=== PATIENT | female | born 1995 | race Caucasian/White ===

== ENCOUNTER 2017-11-22 21:03 | Emergency (ER) | payer MEDICAID, SELFPAY ==
[2017-11-22 21:12] VITALS: BP 104/62; PULSE 83; RESP 16; TEMP 36.9; O2SAT 99; BMI 20.3
[2017-11-22 22:27] VITALS: BP 128/61; PULSE 85; RESP 16; O2SAT 99
--- NOTE | 2017-11-22 22:48 | HMH.EDEYEP ---
ED Disposition Clinical Impression: Hordeolum externum (stye) Qualifiers: Laterality: left Eyelid: lower Qualified Code(s): H00.015 - Hordeolum externum left lower eyelid Disposition: Home, Self-Care Condition on Discharge: Good Instructions: DI for Hordeolum Additional Instructions: warm compresses and see dr tejeda in am Referrals: Provider,Referral, [Primary Care Provider] - - Critical Care Critical Care Time: No Attestation: On 11/22/17, the high probability of a clinically significant, sudden or life threatening deterioration of the following system(s) required my full and direct attention, intervention and personal management. The time I documented below is in addition to time spent performing reported procedures but includes the following listed in this critical care notation. Medical Decision Making - Medical Records Medical records reviewed: Yes: I reviewed the patient's medical records. Vital Signs: 11/22/17 21:12 11/22/17 22:27 Temperature 98.5 F Temperature Source Oral Pulse Rate [Brachial] 83 85 Respiratory Rate 16 16 Blood Pressure [Right Arm] 104/62 128/61 Blood Pressure Mean [Right Arm] 76 83 Blood Pressure Source [Right Arm] Automatic Cuff Automatic Cuff Blood Pressure Position [Right Arm] Sitting Sitting 02 Sat by Pulse Oximetry 99 99 Oxygen Delivery Method Room Air Room Air - Physician Consults Physician Consulted: ileana Reason -: Pt condition - Timmy Inquiry Pt receiving controlled substance: No Eye Problem HPI - General Chief complaint: Eye Problems Stated complaint: LEFT EYE RED&SWOLLEN Time Seen by Provider: 11/22/17 22:48 Mode of Arrival: Ambulatory Source of Information: Patient, Medical Record Limitations: No Limitations Description of Symptoms (Recalled from ER Triage Doc. by RN): PAIN AND SWELLING IN LEFT EYE - History of Present Illness HPI Narrative: pt with reddness and swelling lt lower eye over the last 2 days - no contact lens chief complaint: eye pain, other (swollen lower lid ) Onset (ago): day(s) Onset description: gradual Duration: constant Location: left eye Eye Symptoms: pain Mechanism: none Severity: moderate Associated symptoms: none Treatments Prior to Arrival: none - Related Data Home Medications Medication Instructions Recorded Confirmed No Known Home Medications [No 11/22/17 11/22/17 Known Home Medications] Allergies Allergy/AdvReac Type Severity Reaction Status Date / Time azithromycin [From ZITHROMAX] Allergy Mild Verified 11/22/17 21:28 ciprofloxacin [From CIPRO] Allergy Mild Verified 11/22/17 21:28 Penicillins [PENICILLINS] Allergy Unknown Verified 11/22/17 21:[address] [facility] History I have reviewed the patient's past medical history: Yes - *Social History Smoking Status: Current every day smoker Alcohol Intake: never - Psychiatric History Expresses thoughts of harming self/others: None Suicide Plan Description: No Plan ROS Obtained: Yes All systems reviewed & no additional complaints - Constitutional Constitutional: Denies fever(s) - Eyes Eyes: Denies diplopia, Reports eye pain, Denies photophobia, Denies requires corrective lenses - ENT Ears, Nose, Mouth, and Throat: Reports sinus pain, Denies sore throat - Cardiovascular Cardiovascular: Denies chest pain - Respiratory Respiratory: No cough - Gastrointestinal Gastrointestingal: Denies: abdominal pain - Musculoskeletal Musculoskeletal: Denies joint pain - Integumentary/Breasts Skin/Breast: Denies rash Physical Exam - General General appearance: alert - Head Head exam: atraumatic - Eye Eye exam: Present: PERRL, EOMI - Expanded Eye Exam Eyelids: bilateral: stye - ENT ENT exam: Present: normal exam - Neck Neck exam: Present: normal inspection - Respiratory Respiratory exam: Absent: respiratory distress - Cardiovascular Cardiovascular exam: Present: regular rate - Back Exam Back exam: Present: full
--- NOTE | 2017-11-22 22:51 | ED_ITS ---
ED Disposition Clinical Impression: Hordeolum externum (stye) Qualifiers: Laterality: left Eyelid: lower Qualified Code(s): H00.015 - Hordeolum externum left lower eyelid Disposition: Home, Self-Care Condition on Discharge: Good Instructions: DI for Hordeolum Additional Instructions: warm compresses and see dr tejeda in am Referrals: Provider,Referral, [Primary Care Provider] - - Critical Care Critical Care Time: No Attestation: On 11/22/17, the high probability of a clinically significant, sudden or life threatening deterioration of the following system(s) required my full and direct attention, intervention and personal management. The time I documented below is in addition to time spent performing reported procedures but includes the following listed in this critical care notation. Medical Decision Making - Medical Records Medical records reviewed: Yes: I reviewed the patient's medical records. Vital Signs: 11/22/17 21:12 11/22/17 22:27 Temperature 98.5 F Temperature Source Oral Pulse Rate [Brachial] 83 85 Respiratory Rate 16 16 Blood Pressure [Right Arm] 104/62 128/61 Blood Pressure Mean [Right Arm] 76 83 Blood Pressure Source [Right Arm] Automatic Cuff Automatic Cuff Blood Pressure Position [Right Arm] Sitting Sitting 02 Sat by Pulse Oximetry 99 99 Oxygen Delivery Method Room Air Room Air - Physician Consults Physician Consulted: ileana Reason -: Pt condition - Timmy Inquiry Pt receiving controlled substance: No Eye Problem HPI - General Chief complaint: Eye Problems Stated complaint: LEFT EYE RED&SWOLLEN Time Seen by Provider: 11/22/17 22:48 Mode of Arrival: Ambulatory Source of Information: Patient, Medical Record Limitations: No Limitations Description of Symptoms (Recalled from ER Triage Doc. by RN): PAIN AND SWELLING IN LEFT EYE - History of Present Illness HPI Narrative: pt with reddness and swelling lt lower eye over the last 2 days - no contact lens chief complaint: eye pain, other (swollen lower lid ) Onset (ago): day(s) Onset description: gradual Duration: constant Location: left eye Eye Symptoms: pain Mechanism: none Severity: moderate Associated symptoms: none Treatments Prior to Arrival: none - Related Data Home Medications Medication Instructions Recorded Confirmed No Known Home Medications [No 11/22/17 11/22/17 Known Home Medications] Allergies Allergy/AdvReac Type Severity Reaction Status Date / Time azithromycin [From ZITHROMAX] Allergy Mild Verified 11/22/17 21:28 ciprofloxacin [From CIPRO] Allergy Mild Verified 11/22/17 21:28 Penicillins [PENICILLINS] Allergy Unknown Verified 11/22/17 21:28 [facility] History I have reviewed the patient's past medical history: Yes - *Social History Smoking Status: Current every day smoker Alcohol Intake: never - Psychiatric History Expresses thoughts of harming self/others: None Suicide Plan Description: No Plan ROS Obtained: Yes All systems reviewed & no additional complaints - Constitutional Constitutional: Denies fever(s) - Eyes Eyes: Denies diplopia, Reports eye pain, Denies photophobia, Denies requires corrective lenses - ENT Ears, Nose, Mouth, and Throat: Reports sinus pain, Denies sore throat - Cardiovascular Cardiovascular: Denie
== END 2017-11-22 23:00 | disposition home or self-care (01) ==
PROVIDERS: Emergency Provider Emergency Medicine; Family Provider Family Medicine
DX: H00.015 Hordeolum externum left lower eyelid (principal); F17.210 Nicotine dependence, cigarettes, uncomplicated; Z88.0 Allergy status to penicillin; Z88.1 Allergy status to other antibiotic agents
CPT/HCPCS: 99282

== ENCOUNTER → 2018-02-19 15:10 | Outpatient (CLI) | payer MEDICAID, SELFPAY ==
[2018-02-22 15:51] LABS: HIV Screen 4th Generation wRfx Non Reactive (Non Reactive); Hepatitis C Antibody <0.1 s/co ratio (0.0-0.9); Rapid Plasma Reagin Ab Titer Non Reactive (NonRea<1:1)
[2018-02-22 15:51] LABS: Neisseria gonorrhoeae, NAA Negative (Negative)
== END ==
PROVIDERS: Visit Provider Obstetrics & Gynecology
DX: Z01.419 Encounter for gynecological examination (general) (routine) without abnormal findings (principal)
CPT/HCPCS: 36415; 86592; 86703; 87380; 87491; 87591; G0432

== ENCOUNTER 2018-06-14 23:12 | Observation (INO) ==
[2018-06-14 23:41] LABS: Basophils % 0.2 % (0.1-2.0); Eosinophils # 0.1 K/mm3 (0.0-0.4); Eosinophils % 0.6 % (0.1-12.0); Hematocrit 38.9 % (37.0-47.0); Hemoglobin 13.2 g/dL (12.2-16.2); Mean Corpuscular HGB Conc 33.8 g/dL (31.8-35.4); Mean Corpuscular Hemoglobin 30.9 pg (27.0-31.2); Mean Corpuscular Volume 91.3 fl (81-99); Mean Platelet Volume 7.8 fl (7.4-10.4); Monocytes # 0.8 K/mm3 (0.1-1.0); Monocytes % 4.7 % (1.7-9.3); Neutrophils # 14.8 K/mm3 (1.8-7.8); Neutrophils % 88.3 % (37.0-80.0); Platelet Count 373 K/mm3 (142-424); Red Blood Count 4.26 M/mm3 (4.20-5.40); Red Cell Distribution Width 12.3 % (11.5-17.5); White Blood Count 16.8 K/mm3 (4.5-13.0)
[2018-06-14 23:52] LABS: Albumin Level 4.5 gm/dL (3.4-5.0); Albumin/Globulin Ratio 1.2 (1.1-1.8); Anion Gap 8.9 mEq/L (5-15); Bilirubin,Total 0.5 mg/dL (0.2-1.0); Calcium 9.3 mg/dL (8.5-10.1); Globulin 3.9 gm/dl (1.3-3.2); Total Protein,Serum 8.4 gm/dL (6.4-8.2)
[2018-06-14 23:55] LABS: Potassium 2.9 mmoL/L (3.5-5.1)
[2018-06-15 00:30] LABS: Anisocytosis 1+; Lymphocytes % 9 % (10-50); Monocytes % 4 % (2-9); Neutrophils % 87 % (42-76); Total Cells Counted 100
[2018-06-15 00:39] LABS: Microscopic, Urine URINE MICROSCOPIC (MICROSCOPIC)
--- NOTE | 2018-06-15 00:39 | Emergency Department Note ---
ED Disposition Clinical Impression: Abscess, Hypokalemia Leukocytosis Qualifiers: Leukocytosis type: unspecified Qualified Code(s): D72.829 - Elevated white blood cell count, unspecified Disposition: Admitted as Observation Condition on Discharge: Good Time of Disposition: 00:38 - Critical Care Critical Care Time: No Attestation: On 06/14/18, the high probability of a clinically significant, sudden or life threatening deterioration of the following system(s) required my full and direct attention, intervention and personal management. The time I documented below is in addition to time spent performing reported procedures but includes the following listed in this critical care notation. Medical Decision Making - Medical Records Medical records reviewed: Yes: I reviewed the patient's medical records. - Timmy Inquiry Pt receiving controlled substance: No Vital Signs: 06/14/18 23:16 06/15/18 00:14 06/15/18 00:53 Temperature 99.0 F 99.2 F 99.8 F H Temperature Source Oral Oral Oral Pulse Rate 102 H Pulse Rate [Right Brachial] 134 H 93 H Respiratory Rate 20 18 16 Blood Pressure 122/72 Blood Pressure [Right Arm] 161/78 109/59 Blood Pressure Mean [Right Arm] 105 75 Blood Pressure Source [Right Arm] Automatic Cuff Automatic Cuff Blood Pressure Position [Right Arm] Supine Supine 02 Sat by Pulse Oximetry 99 98 Oxygen Delivery Method Room Air Room Air 06/15/18 00:56 Temperature Temperature Source Pulse Rate Pulse Rate [Right Brachial] Respiratory Rate Blood Pressure Blood Pressure [Right Arm] Blood Pressure Mean [Right Arm] Blood Pressure Source [Right Arm] Blood Pressure Position [Right Arm] 02 Sat by Pulse Oximetry Oxygen Delivery Method Room Air - Lab Data Lab results reviewed: Yes: I reviewed the patient's lab results. Lab Results 06/14/18 23:27: WBC 16.8 H, RBC 4.26, Hgb 13.2, Hct 38.9, MCV 91.3, MCH 30.9, MCHC 33.8, RDW 12.3, Plt Count 373, MPV 7.8, Neut % (Auto) 88.3 H, Lymph % (Auto ) 6.0 L, Jack % (Auto) 4.7, Eos % (Auto) 0.6, Baso % (Auto) 0.2, Neut # (Auto) 14.8 H, Lymph # (Auto) 1.0, Jack # (Auto) 0.8, Eos # (Auto) 0.1, Baso # (Auto) 0.0, Total Counted 100, Neutrophils % (Manual) 87 H, Lymphocytes % (Manual) 9 L , Monocytes % (Manual) 4, Platelet Estimate Normal, Anisocytosis 1+ 06/14/18 23:27: Sodium 140, Potassium 2.9 L*, Chloride 105, Carbon Dioxide 29, Anion Gap 8.9, BUN 3 L, Creatinine 1.00, Estimated Creat Clear 74, Estimated GFR 71, Est GFR ( Amer) 86, Glucose 111 H, Calcium 9.3, Total Bilirubin 0.5, AST 10 L, ALT 22, Alkaline Phosphatase 74, Total Protein 8.4 H, Albumin 4.5 , Globulin 3.9 H, Albumin/Globulin Ratio 1.2 06/15/18 00:00: Lactate 1.5 06/15/18 00:36: Urine Color Yellow, Urine Appearance Clear, Urine pH 6.0, Ur Specific [place] 1.020, Urine Protein 1+, Urine Glucose (UA) Negative, Urine Ketones Negative, Urine Blood Negative, Urine Nitrate Negative, Urine Bilirubin Negative, Urine Urobilinogen 0.2, Ur Leukocyte Esterase Negative, Urine WBC 3-5 , Ur Squamous Epith Cells Occasional, Urine Bacteria Trace 06/15/18 00:36: Urine Opiates Screen Negative, Urine Methadone Screen Negative, Ur Barbituates Screen Negative, Ur Phencyclidine Scrn Negative, Ur Amphetamines Screen Negative, U Benzodiazepines Scrn Negative, Urine Cocaine Screen Negative , U Marijuana (THC) Screen Negative 06/15/18 00:36: Urine HCG, Qual Negative Result diagrams: 06/14/18 23:27 06/14/18 23:27 Orders (Tests/Meds): ED MEDICATIONS Generic Name Dose Route Start Last Admin Trade Name Freq PRN Reason Stop Dose Admin Clindamycin Phosphate 600 mg/ 104 mls @ 104 mls/hr 06/15/18 06:45 Sodium Chloride IV 06/29/18 00:44 Q6H JAVIER Protocol Sodium Chloride 1,000 mls @ 75 mls/hr 06/15/18 01:05 06/15/18 03:34 Sod Chlor 0.9% 1000ml Bag IV 07/15/18 01:04 75 mls/hr .[id number] JAVIER Administration Vancomycin HCl 1,000 mg/ 250 mls @ 125 mls/hr 06/15/18 01:05 06/15/18 01:58 Sodium Chloride IV 06/15/18 02:43 125 mls/hr ONCE ONE Administration Vancomycin HCl 750 mg/ Sodium 250 mls @ 125 mls/hr 06/15/18 13:00 Chloride IV 06/15/18 14:59 Q12 ONE Ketorolac Tromethamine 30 mg 06/15/18 01:05 Toradol 30mg/Ml Vial IV 06/20/18 01:04 Q6HP PRN Moderate Pain Miscellaneous 1 each 06/15/18 01:05 06/15/18 03:33 Vancomycin Consult Request * 07/15/18 00:44 Not Given CONSULT PHARMACY JAVIER Ondansetron HCl 4 mg 06/15/18 01:05 Zofran 4mg/2ml Vial IV 07/15/18 01:04 Q6H PRN Nausea Discontinued Medications Generic Name Dose Route Start Last Admin Trade Name Freq PRN Reason Stop Dose Admin Sodium Chloride 1,000 mls @ 999 mls/hr 06/14/18 23:15 06/14/18 23:50 Sod Chlor 0.9% 1000ml Bag IV 06/15/18 00:15 999 mls/hr .[id number] JAVIER Administration Clindamycin Phosphate 600 mg/ 104 mls @ 104 mls/hr 06/15/18 00:45 06/15/18 00 :45 Sodium Chloride IV 06/29/18 00:44 104 mls/hr Q6H JAVIER Administration Protocol Vancomycin HCl 1,000 mg/ 250 mls @ 125 mls/hr 06/15/18 00:44 Sodium Chloride IV 06/15/18 02:43 ONCE ONE Vancomycin HCl 750 mg/ Sodium 250 mls @ 125 mls/hr 06/15/18 00:44 Chloride IV 06/15/18 02:43 Q12 ONE Ketorolac Tromethamine 30 mg 06/14/18 23:33 06/14/18 23:50 Toradol 30mg/Ml Vial IV 06/14/18 23:34 30 mg ONCE ONE Administration Miscellaneous 1 each 06/15/18 00:45 06/15/18 00:46 Vancomycin Consult Request * 07/15/18 00:44 1 each CONSULT PHARMACY JAVIER Administration Ondansetron HCl 4 mg 06/14/18 23:33 06/14/18 23:50 Zofran 4mg/2ml Vial IV 06/14/18 23:34 4 mg ONCE ONE Administration Potassium Chloride 60 meq 06/15/18 00:19 06/15/18 00:22 Klor-Con 20meq Tablet PO 06/15/18 00:20 60 meq ONCE ONE Administration ORDERS Category Date Time Status Blood Culture Stat Micro 06/15/18 00:00 Received - Physician Consults Physician Consulted: dr. Thanh Toscano Time: 00:30 Reason -: Admission, Pt condition Comment/Response: Agreeable with admission, was seen patient in the hospital in the morning, while on antibiotics, prior to taking her to the operating room. - Reevaluation(s) Time: 00:30 Reevaluation #1: Patient has refused admission on multiple occasions, advised her of benefits of continued IV antibiotics, as well as prompt surgical intervention, prior to further deterioration. General Adult HPI - General Chief complaint: Headache Stated complaint: Headache, light headed, shivering, confusion Time Seen by Provider: 06/14/18 23:15 Mode of Arrival: Ambulatory Source of Information: Patient Limitations: minimal speech Description of Symptoms (Recalled from ER Triage Doc. by RN): co lea and r leg hurting - History of Present Illness HPI narrative: This is a 22-year-old female patient, extremely anxious, tearful, presenting to the emergency room together with her boyfriend, complaining with a posterior right thigh "brown recluse bite", and a headache. 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 She has seen Jim Henderson earlier today and was prescribed an antibiotic (Bactrim) for her right leg lesion, and she is scheduled to see 1 of the surgeons on Monday, for incision and drainage. She is fearful of needles, examination extremely difficult, as patient is sobbing, refusing to talk, while the nurses attempting an IV line in her left antecubital area. 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 MD complaint: right thigh lession Onset (ago): day(s) (1) Location: right, lower extremity Radiation: non-radiation Severity: severe Severity scale (1-10): 8 Quality: stabbing Consistency: intermittent Relieving factors: rest Exacerbating factors: movement Associated symptoms: denies other symptoms Treatments prior to arrival: none - Related Data Home Medications Medication Instructions Recorded Confirmed No Known Home Medications 06/15/18 06/15/18 Allergies Allergy/AdvReac Type Severity Reaction Status Date / Time azithromycin [From ZITHROMAX] Allergy Mild Verified 06/14/18 13:47 ciprofloxacin [From CIPRO] Allergy Mild Verified 06/14/18 13:47 Penicillins [PENICILLINS] Allergy Unknown Verified 06/14/18 13:47 [facility] History I have reviewed the patient's past medical history: Yes Medical History: Reports:: Depression, MRSA Denies:: Anxiety, Cancer, Diabetes Mellitus Type 1, Diabetes Mellitus Type 2 , Hypertension Other Surgeries: Yes: No Previous Surgery Amputation: No Fractures: No Comment: bilateral ear tubes - Social History Smoking Status: Never smoker Tobacco Type: cigarettes Alcohol Intake: former Substance Use Type: former substance user, marijuana, crack/cocaine - Psychiatric History Expresses thoughts of harming self/others: None Suicide Plan Description: No Plan Pschychiatric History:: Reports:: Depression Denies:: Anxiety Family Hx:: Cancer, Stroke, Hypertension ROS Obtained: Yes All systems reviewed & no additional complaints, Yes Systems reviewed as appropriate & no additional complaints - Musculoskeletal Musculoskeletal: Reports system reviewed and no additional complaints, except as docu, Reports as per HPI, Reports muscle cramps - Integumentary/Breasts Skin/Breast: Reports as per HPI, Reports lesions Physical Exam - General General appearance: alert, in distress (severe, agitated, tearful) - Head Head exam: atraumatic, normocephalic, normal inspection - Neck Neck exam: Present: normal inspection, full ROM, trachea midline. Absent: meningismus, lymphadenopathy - Chest Chest inspection: Present: normal inspection, symmetric chest wall rise. Absent : tenderness - Respiratory Respiratory exam: Present: normal lung sounds bilaterally. Absent: respiratory distress - Cardiovascular Cardiovascular exam: Present: regular rate, normal rhythm. Absent: JVD - Abdominal Exam Abdominal exam: Present: soft, normal bowel sounds. Absent: distention, tenderness, guarding - Expanded Lower Extremity Exam Right Upper leg exam: Present: tenderness (right posterior thigh), swelling (right posterior area), erythema (right posterior area), other (right posterior thigh with a 10x10 soft tissue swelling, central fluctuance) - Back Exam Back exam: Present: normal inspection. Absent: tenderness - Neurological Exam Neurological exam: Present: alert, oriented X3 - Psychiatric Psychiatric exam: Present: normal affect, normal mood - Skin Skin exam: Present: warm, dry, intact, normal color - Lymphatic Lymphatic Findings: no adenopathy
[2018-06-15 00:41] LABS: Appearance,Urine CLEAR (Clear); Bilirubin,Urine Negative (Negative); Blood, Urine Negative (Negative); Color,Urine YELLOW (Yellow); Glucose,Urine (UA) Negative (Negative); Ketones,Urine Negative (Negative); Leukocyte Esterase,Urine Negative (Negative); Protein,Urine 1+ (Negative); Urobilinogen,Urine 0.2 EU/dl (0.2)
[2018-06-15 00:50] LABS: Amphetamine/Metha Screen,Urine Negative ng/mL (<1000); Barbiturates Screen,Urine Negative ng/mL (<200); Benzodiazepines Screen,Urine Negative ng/mL (<200); Cannabinoid Screen,Urine Negative ng/mL (<50); Cocaine Screen,Urine Negative ng/mL (<300); Methadone Screen,Urine Negative ng/mL (<300); Opiate Screen,Urine Negative ng/mL (<300); Phencyclidine Screen,Urine Negative ng/mL (<25)
[2018-06-15 01:09] LABS: Bacteria,Urine Trace /lpf; Squamous Epithelial Cell,Urine Occasional #/hpf (0-5)
--- NOTE | 2018-06-15 07:09 | History & Physical Report ---
HPI HPI: This is a 22-year-old female who reported overnight to the emergency department with increasing pain along the right medial thigh. She had been diagnosed with a "spider bite and abscess". She was treated with antibiotics by her primary care provider a few days ago but the area "just got worse". No fevers. No drainage. 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, MRSA Denies:: Anxiety, Cancer, Diabetes Mellitus Type 1, Diabetes Mellitus Type 2 , Hypertension Other Surgeries: Yes: No Previous Surgery Amputation: No Fractures: No - *Social History Smoking Status: Never smoker Tobacco Type: cigarettes Alcohol Intake: former Substance Use Type: former substance user, marijuana, crack/cocaine Occupational Status: employed - Psychiatric History Expresses thoughts of harming self/others: None Suicide Plan Description: No Plan Pschychiatric History:: Reports:: Depression Denies:: Anxiety *Family Hx:: Cancer, Stroke, Hypertension Review of Systems - Constitutional Denies anorexia - Eyes Denies change in vision - ENT Denies abnormal hearing - *Cardiovascular Denies chest pain - *Respiratory Denies cough - *Gastrointestinal Denies abdominal pain - *Genitourinary Denies abnormal periods - *Musculoskeletal Denies abnormal walking - Integumentary/Breasts Reports redness - *Neurologic Denies abnormal walking - Psychiatric Denies abnormal sleep pattern - Endocrine Denies cold intolerance - Hematologic/Lymphatic Denies easy bleeding - Allergic/Immunologic Denies GI upset with certain foods Meds Home Medications Medication Instructions Recorded Confirmed Type No Known Home Medications 06/15/18 06/15/18 History Allergies Allergy/AdvReac Type Severity Reaction Status Date / Time azithromycin [From ZITHROMAX] Allergy Mild Verified 06/14/18 13:47 ciprofloxacin [From CIPRO] Allergy Mild Verified 06/14/18 13:47 Penicillins [PENICILLINS] Allergy Unknown Verified 06/14/18 13:47 Exam Vital signs and Labs for Last 24 Hours: Temp Pulse Resp BP Pulse Ox 98.6 F 94 H 16 103/46 98 06/15/18 05:05 06/15/18 05:05 06/15/18 05:05 06/15/18 05:05 06/15/18 05:05 Laboratory Results - last 24 hr 06/14/18 23:27: WBC 16.8 H, RBC 4.26, Hgb 13.2, Hct 38.9, MCV 91.3, MCH 30.9, MCHC 33.8, RDW 12.3, Plt Count 373, MPV 7.8, Neut % (Auto) 88.3 H, Lymph % (Auto ) 6.0 L, [place] % (Auto) 4.7, Eos % (Auto) 0.6, Baso % (Auto) 0.2, Neut # (Auto) 14.8 H, Lymph # (Auto) 1.0, [place]an # (Auto) 0.8, Eos # (Auto) 0.1, Baso # (Auto) 0.0, Total Counted 100, Neutrophils % (Manual) 87 H, Lymphocytes % (Manual) 9 L , Monocytes % (Manual) 4, Platelet Estimate Normal, Anisocytosis 1+ 06/14/18 23:27: Sodium 140, Potassium 2.9 L*, Chloride 105, Carbon Dioxide 29, Anion Gap 8.9, BUN 3 L, Creatinine 1.00, Estimated Creat Clear 74, Estimated GFR 71, Est GFR ( Amer) 86, Glucose 111 H, Calcium 9.3, Total Bilirubin 0.5, AST 10 L, ALT 22, Alkaline Phosphatase 74, Total Protein 8.4 H, Albumin 4.5 , Globulin 3.9 H, Albumin/Globulin Ratio 1.2 06/15/18 00:00: Lactate 1.5 06/15/18 00:36: Urine Color Yellow, Urine Appearance Clear, Urine pH 6.0, Ur Specific [place] 1.020, Urine Protein 1+, Urine Glucose (UA) Negative, Urine Ketones Negative, Urine Blood Negative, Urine Nitrate Negative, Urine Bilirubin Negative, Urine Urobilinogen 0.2, Ur Leukocyte Esterase Negative, Urine WBC 3-5 , Ur Squamous Epith Cells Occasional, Urine Bacteria Trace 06/15/18 00:36: Urine Opiates Screen Negative, Urine Methadone Screen Negative, Ur Barbituates Screen Negative, Ur Phencyclidine Scrn Negative, Ur Amphetamines Screen Negative, U Benzodiazepines Scrn Negative, Urine Cocaine Screen Negative , U Marijuana (THC) Screen Negative 06/15/18 00:36: Urine HCG, Qual Negative I & O for Last 24 hours: Intake & Output 06/12/18 06/13/18 06/14/18 06/15/18 11:59 11:59 11:59 11:59 Intake Total 1000 / 1000 Balance 1000 / 1000 Weight 114 lb 2 oz - *Routine Skin Exam Comments: 2cm abscess along right medial thigh Results - Results Lab Results Last 24 Hours:: Laboratory Results - last 24 hr 06/14/18 23:27: WBC 16.8 H, RBC 4.26, Hgb 13.2, Hct 38.9, MCV 91.3, MCH 30.9, MCHC 33.8, RDW 12.3, Plt Count 373, MPV 7.8, Neut % (Auto) 88.3 H, Lymph % (Auto ) 6.0 L, [place] % (Auto) 4.7, Eos % (Auto) 0.6, Baso % (Auto) 0.2, Neut # (Auto) 14.8 H, Lymph # (Auto) 1.0, [place]an # (Auto) 0.8, Eos # (Auto) 0.1, Baso # (Auto) 0.0, Total Counted 100, Neutrophils % (Manual) 87 H, Lymphocytes % (Manual) 9 L , Monocytes % (Manual) 4, Platelet Estimate Normal, Anisocytosis 1+ 06/14/18 23:27: Sodium 140, Potassium 2.9 L*, Chloride 105, Carbon Dioxide 29, Anion Gap 8.9, BUN 3 L, Creatinine 1.00, Estimated Creat Clear 74, Estimated GFR 71, Est GFR ( Amer) 86, Glucose 111 H, Calcium 9.3, Total Bilirubin 0.5, AST 10 L, ALT 22, Alkaline Phosphatase 74, Total Protein 8.4 H, Albumin 4.5 , Globulin 3.9 H, Albumin/Globulin Ratio 1.2 06/15/18 00:00: Lactate 1.5 06/15/18 00:36: Urine Color Yellow, Urine Appearance Clear, Urine pH 6.0, Ur Specific [place] 1.020, Urine Protein 1+, Urine Glucose (UA) Negative, Urine Ketones Negative, Urine Blood Negative, Urine Nitrate Negative, Urine Bilirubin Negative, Urine Urobilinogen 0.2, Ur Leukocyte Esterase Negative, Urine WBC 3-5 , Ur Squamous Epith Cells Occasional, Urine Bacteria Trace 06/15/18 00:36: Urine Opiates Screen Negative, Urine Methadone Screen Negative, Ur Barbituates Screen Negative, Ur Phencyclidine Scrn Negative, Ur Amphetamines Screen Negative, U Benzodiazepines Scrn Negative, Urine Cocaine Screen Negative , U Marijuana (THC) Screen Negative 06/15/18 00:36: Urine HCG, Qual Negative Assessment and Plan (1) Abscess of skin or subcutaneous tissue Current visit: No Status: Acute Qualifiers: Site of cutaneous abscess of extremity: hand Laterality: right Category: Medical Code(s): L02.91 - Cutaneous abscess, unspecified Incision and drainage of right medial thigh abscess-I have discussed the risks and benefits and she agrees to proceed.
--- NOTE | 2018-06-15 07:19 | Pharmacy Consult Notes ---
[facility] Pharmacy VTE Monitoring - Patient Demographics Admission date: 06/15/18 Report Date: 06/15/18 Time: 07:18 Allergies/Adverse Reactions: Patient Allergies azithromycin [From ZITHROMAX] Allergy (Mild, Verified 06/14/18 13:47) ciprofloxacin [From CIPRO] Allergy (Mild, Verified 06/14/18 13:47) Penicillins [PENICILLINS] Allergy (Unknown, Verified 06/14/18 13:47) Height: 1.63 m Weight: 51.766 kg Patient Problems: Current Active Problems Abscess (Acute) Leukocytosis (Acute) Hypokalemia (Acute) - VTE Risk Labs: VTE Related Lab Results Hgb 13.2 g/dL (12.2-16.2) 06/14/18 23:27 Hct 38.9 % (37.0-47.0) 06/14/18 23:27 Plt Count 373 K/mm3 (142-424) 06/14/18 23:27 BUN 3 mg/dL (7-18) L 06/14/18 23:27 Creatinine 1.00 mg/dL (0.55-1.02) 06/14/18 23:27 Estimated Creat Clear 74 mL/min (0-300) 06/14/18 23:27 Was VTE Risk Assessment Performed: Yes VTE Risk Level: Very Low Risk - Prophylaxis VTE Prophylaxis Ordered?: Yes Types of VTE Prophylaxis: TEDS Knee High Location of Applied Device: Bilateral Lower Extremeties - VTE Diagnosis Confirmed Treatment or plan recommended: Continue Current Treatment
--- NOTE | 2018-06-15 09:52 | Progress Note ---
[facility] Anesthesia Checklist - Patient Identification Patient Identification: Arm Band, Verbal (Name & ) - Structural Data Admitted From: Inpatient Planned Operative Procedure/s: I&D of R thigh abscess Consent for Planned Operative Procedure(s) Verified: Yes Verified Documents: Surgical Consent, History and Physical - NPO Status Verified Time NPO: 00:00 - Additional verifications Patient : No Anesthesia Reactions: No - Airway Assessment C-Spine Mobility Assessed: Yes TMJ Mobility Assessed: Yes Dentition: Dentures-good fit - Neurological Assessment Level of Consciousness: Awake Hx Seizures: Yes (Grand mal seizures (Last 2016)) Numbness or tingling in extremities: No - Anesthesia Plan Anesthesia Risk discussed: Yes Anesthesia Plan: Verified ASA Class: II Anesthesia Type: General [facility] Anesthesia HX I have reviewed the patient's past medical history: Yes Medical History: Reports:: Depression, MRSA, Seizures Denies:: Anxiety, Cancer, Diabetes Mellitus Type 1, Diabetes Mellitus Type 2 , Hypertension Other Medical History: Reports: Other (Hx of drug abuse) Other Surgeries: Yes: No Previous Surgery Amputation: No Fractures: No *Family Hx:: Cancer, Stroke, Hypertension
--- NOTE | 2018-06-15 09:57 | Pharmacy Consult Notes ---
- Pharmacy Consult Date: 06/15/18 Time: 09:54 Referring provider: DR. ARCOS Reason for Consult:: VANCOMYCIN DOSING Allergies and ADEs:: Allergies Allergy/AdvReac Type Severity Reaction Status Date / Time azithromycin [From ZITHROMAX] Allergy Mild Verified 06/14/18 13:47 ciprofloxacin [From CIPRO] Allergy Mild Verified 06/14/18 13:47 Penicillins [PENICILLINS] Allergy Unknown Verified 06/14/18 13:47 Home Medications:: Home Medications Medication Instructions Recorded Confirmed Type No Known Home Medications 06/15/18 06/15/18 History Height: 1.63 m Weight: 52.39 kg Laboratory Results:: Laboratory Results - last 24 hr 06/14/18 23:27: WBC 16.8 H, RBC 4.26, Hgb 13.2, Hct 38.9, MCV 91.3, MCH 30.9, MCHC 33.8, RDW 12.3, Plt Count 373, MPV 7.8, Neut % (Auto) 88.3 H, Lymph % (Auto ) 6.0 L, [place] % (Auto) 4.7, Eos % (Auto) 0.6, Baso % (Auto) 0.2, Neut # (Auto) 14.8 H, Lymph # (Auto) 1.0, [place] # (Auto) 0.8, Eos # (Auto) 0.1, Baso # (Auto) 0.0, Total Counted 100, Neutrophils % (Manual) 87 H, Lymphocytes % (Manual) 9 L , Monocytes % (Manual) 4, Platelet Estimate Normal, Anisocytosis 1+ 06/14/18 23:27: Sodium 140, Potassium 2.9 L*, Chloride 105, Carbon Dioxide 29, Anion Gap 8.9, BUN 3 L, Creatinine 1.00, Estimated Creat Clear 74, Estimated GFR 71, Est GFR ( Amer) 86, Glucose 111 H, Calcium 9.3, Total Bilirubin 0.5, AST 10 L, ALT 22, Alkaline Phosphatase 74, Total Protein 8.4 H, Albumin 4.5 , Globulin 3.9 H, Albumin/Globulin Ratio 1.2 06/15/18 00:00: Lactate 1.5 06/15/18 00:36: Urine Color Yellow, Urine Appearance Clear, Urine pH 6.0, Ur Specific [place] 1.020, Urine Protein 1+, Urine Glucose (UA) Negative, Urine Ketones Negative, Urine Blood Negative, Urine Nitrate Negative, Urine Bilirubin Negative, Urine Urobilinogen 0.2, Ur Leukocyte Esterase Negative, Urine WBC 3-5 , Ur Squamous Epith Cells Occasional, Urine Bacteria Trace 06/15/18 00:36: Urine Opiates Screen Negative, Urine Methadone Screen Negative, Ur Barbituates Screen Negative, Ur Phencyclidine Scrn Negative, Ur Amphetamines Screen Negative, U Benzodiazepines Scrn Negative, Urine Cocaine Screen Negative , U Marijuana (THC) Screen Negative 06/15/18 00:36: Urine HCG, Qual Negative 06/15/18 07:48: Potassium 4.0 D Medical History: Reports:: Depression, MRSA, Seizures Denies:: Anxiety, Cancer, Diabetes Mellitus Type 1, Diabetes Mellitus Type 2 , Hypertension Assessment and Plan (1) Abscess of skin or subcutaneous tissue Current visit: No Status: Acute Qualifiers: Site of cutaneous abscess of extremity: hand Laterality: right Category: Medical Code(s): L02.91 - Cutaneous abscess, unspecified - Assessment and plan all Dx Assessment and Plan for all problems:: BASED ON PATIENT FACTORS, RECOMMEND VANCOMYCIN 1 GM IV ONCE, FOLLOWED BY VANCOMYCIN 750 MG IV Q12H. WILL OBTAIN VANCOMYCIN TROUGH LEVEL PRIOR TO 4TH DOSE. PHARMACY WILL FOLLOW DAILY AND ADJUST APPROPRIATE.
--- NOTE | 2018-06-15 13:43 | Operative Note ---
Date of procedure: 06/15/18 Pre-op Diagnosis:: Right medial thigh abscess Post-op Diagnosis:: same Procedure performed:: Incision and drainage of right medial thigh abscess Surgeon:: Thanh Toscano MD RETAIL BUYER:: Jose Johnson Anesthesia: LMA Estimated blood loss (mL): 1 Operative findings:: 1 x 2 cm pocket of purulence Operative note:: After informed consent was obtained, the patient was taken to the operating room and placed in the supine position. General anesthesia was induced and she was transferred to a modified "frog-leg position". Her right medial thigh was prepped and draped in a sterile fashion. After infiltration with local anesthetic an vision was made overlying the central portion of the lesion. A 1 x 2 cm pocket of purulence was encountered and evacuated. No significant induration or cellulitis noted. The wound was packed with moistened Kerlix that was infiltrated with 1% lidocaine. Dressings were applied and the patient was transferred to recovery in stable condition. Condition: stable Disposition: PACU Complications:: No immediate
--- NOTE | 2018-06-15 13:53 | Progress Note ---
[facility] Anesthesia Record Part II Discharge Time: 14:15 Destination: 2nd floor PACU nurse assessment reviewed?: Yes Patient Condition:: Good Anesthesia Complications:: None
--- NOTE | 2018-06-15 13:53 | Progress Note ---
[facility] Anesthesia Record Part I Intake, IV Amount: 400 Estimated blood loss (mL): 5 Urine output (mL): 0 Blood Pressure: 99/49 SaO2: 95 Pulse Rate: 74 Respiratory Rate: 16 Temperature: 97.9 F Patient is:: Drowsy, Stable Stable to PACU at:: 13:45
--- NOTE | 2018-06-15 16:21 | Discharge Summary ---
General - General Admission date:: 06/15/18 Discharge date: 06/15/18 HPI HPI: This is a 22-year-old female who reported overnight to the emergency department with increasing pain along the right medial thigh. She had been diagnosed with a "spider bite and abscess". She was treated with antibiotics by her primary care provider a few days ago but the area "just got worse". No fevers. No drainage. Hospital Course Hospital Course: The patient underwent incision and drainage of right medial thigh abscess. Please see operative report for detail. Postoperatively she progressed well. She remained afebrile with stable and normal vital signs and was deemed appropriate for discharge on the afternoon of her operative day. Objective Vital signs: Temp Pulse Resp BP Pulse Ox 98.1 F 73 18 108/65 98 06/15/18 15:00 06/15/18 15:00 06/15/18 15:00 06/15/18 15:00 06/15/18 15:00 no acute distress - *Routine HEENT Exam Head: Present: normocephalic, atraumatic - *Routine Neck Exam Present: full ROM - Routine Chest/Breast/Axilla Exam Chest wall: Absent: tenderness - *Routine Respiratory Exam Absent: respiratory distress - *Routine Cardiovascular Exam Present: RRR - *Routine Abdominal Exam Present: soft - *Routine Extremities Exam Present: full ROM. Absent: cyanosis, clubbing, edema - Routine Back/Spine/Pelvis Exam Back/Spine: Present: full ROM - *Routine Skin Exam Comments: 2cm abscess along right medial thigh - *Routine Neurological Exam Present: alert, oriented X3 - Routine Psychiatric Exam Present: normal affect Results Labs on day of discharge: Labs from last 24 hours 06/15/18 06/15/18 06/15/18 07:48 00:36 00:36 WBC RBC Hgb Hct MCV MCH MCHC RDW Plt Count MPV Neut % (Auto) Lymph % (Auto) [place] % (Auto) Eos % (Auto) Baso % (Auto) Neut # (Auto) Lymph # (Auto) [place] # (Auto) Eos # (Auto) Baso # (Auto) Total Counted Neutrophils % (Manual) Lymphocytes % (Manual) Monocytes % (Manual) Platelet Estimate Anisocytosis Sodium Potassium 4.0 D Chloride Carbon Dioxide Anion Gap BUN Creatinine Estimated Creat Clear Estimated GFR Est GFR ( Amer) Glucose Lactate Calcium Total Bilirubin AST ALT Alkaline Phosphatase Total Protein Albumin Globulin Albumin/Globulin Ratio Urine Color Urine Appearance Urine pH Ur Specific [place] Urine Protein Urine Glucose (UA) Urine Ketones Urine Blood Urine Nitrate Urine Bilirubin Urine Urobilinogen Ur Leukocyte Esterase Urine WBC Ur Squamous Epith Cells Urine Bacteria Urine HCG, Qual Negative Urine Opiates Screen Negative Urine Methadone Screen Negative Ur Barbituates Screen Negative Ur Phencyclidine Scrn Negative Ur Amphetamines Screen Negative U Benzodiazepines Scrn Negative Urine Cocaine Screen Negative U Marijuana (THC) Screen Negative 06/15/18 06/15/18 06/14/18 00:36 00:00 23:27 WBC RBC Hgb Hct MCV MCH MCHC RDW Plt Count MPV Neut % (Auto) Lymph % (Auto) [place] % (Auto) Eos % (Auto) Baso % (Auto) Neut # (Auto) Lymph # (Auto) [place] # (Auto) Eos # (Auto) Baso # (Auto) Total Counted Neutrophils % (Manual) Lymphocytes % (Manual) Monocytes % (Manual) Platelet Estimate Anisocytosis Sodium 140 Potassium 2.9 L* Chloride 105 Carbon Dioxide 29 Anion Gap 8.9 BUN 3 L Creatinine 1.00 Estimated Creat Clear 74 Estimated GFR 71 Est GFR ( Amer) 86 Glucose 111 H Lactate 1.5 Calcium 9.3 Total Bilirubin 0.5 AST 10 L ALT 22 Alkaline Phosphatase 74 Total Protein 8.4 H Albumin 4.5 Globulin 3.9 H Albumin/Globulin Ratio 1.2 Urine Color Yellow Urine Appearance Clear Urine pH 6.0 Ur Specific [place] 1.020 Urine Protein 1+ Urine Glucose (UA) Negative Urine Ketones Negative Urine Blood Negative Urine Nitrate Negative Urine Bilirubin Negative Urine Urobilinogen 0.2 Ur Leukocyte Esterase Negative Urine WBC 3-5 Ur Squamous Epith Cells Occasional Urine Bacteria Trace Urine HCG, Qual Urine Opiates Screen Urine Methadone Screen Ur Barbituates Screen Ur Phencyclidine Scrn Ur Amphetamines Screen U Benzodiazepines Scrn Urine Cocaine Screen U Marijuana (THC) Screen 06/14/18 23:27 WBC 16.8 H RBC 4.26 Hgb 13.2 Hct 38.9 MCV 91.3 MCH 30.9 MCHC 33.8 RDW 12.3 Plt Count 373 MPV 7.8 Neut % (Auto) 88.3 H Lymph % (Auto) 6.0 L [place] % (Auto) 4.7 Eos % (Auto) 0.6 Baso % (Auto) 0.2 Neut # (Auto) 14.8 H Lymph # (Auto) 1.0 [place] # (Auto) 0.8 Eos # (Auto) 0.1 Baso # (Auto) 0.0 Total Counted 100 Neutrophils % (Manual) 87 H Lymphocytes % (Manual) 9 L Monocytes % (Manual) 4 Platelet Estimate Normal Anisocytosis 1+ Sodium Potassium Chloride Carbon Dioxide Anion Gap BUN Creatinine Estimated Creat Clear Estimated GFR Est GFR ( Amer) Glucose Lactate Calcium Total Bilirubin AST ALT Alkaline Phosphatase Total Protein Albumin Globulin Albumin/Globulin Ratio Urine Color Urine Appearance Urine pH Ur Specific [place] Urine Protein Urine Glucose (UA) Urine Ketones Urine Blood Urine Nitrate Urine Bilirubin Urine Urobilinogen Ur Leukocyte Esterase Urine WBC Ur Squamous Epith Cells Urine Bacteria Urine HCG, Qual Urine Opiates Screen Urine Methadone Screen Ur Barbituates Screen Ur Phencyclidine Scrn Ur Amphetamines Screen U Benzodiazepines Scrn Urine Cocaine Screen U Marijuana (THC) Screen DS: Diagnosis - Discharge Diagnosis (1) Abscess of skin or subcutaneous tissue Status: Acute Problem details: right medial thigh abscess (presumably secondary to spider bite) Overall, doing well status post incision and drainage on 06/15/2018 Discharge Plan - Patient Discharge Instructions ACTIVITY: Continue current activity, Ambulate as tolerated DIET: advance to your usual diet - Follow up Plan Follow up with: Thanh Toscano MD [Staff Physician] - 1 week Disposition: Home, Self-Residential Medications: Home Medications Medication Instructions Recorded Confirmed Type No Known Home Medications 06/15/18 06/15/18 History Prescriptions/Medication Reconciliation: No Action No Known Home Medications
== END 2018-06-15 16:45 | disposition home or self-care (01) ==
LOC: 2ND 23:12 → ER 23:12 → 2ND 06-15 01:15
PROVIDERS: ADMIT Surgery; ATTEND Surgery

== ENCOUNTER → 2018-08-13 16:31 | Outpatient (CLI) | payer MEDICAID, SELFPAY ==
[2018-08-15 11:34] LABS: HIV Screen 4th Generation wRfx Non Reactive (Non Reactive); Hepatitis C Antibody <0.1 s/co ratio (0.0-0.9); Rapid Plasma Reagin Ab Titer Non Reactive (NonRea<1:1)
== END ==
PROVIDERS: PCP Physician Assistant; Visit Provider Obstetrics & Gynecology
DX: Z72.51 High risk heterosexual behavior (principal)
CPT/HCPCS: 36415; 86592; 86703; 87380; G0432

== ENCOUNTER → 2018-10-30 16:19 | Outpatient (CLI) | payer MEDICAID, SELFPAY ==
[2018-10-30 18:44] LABS: HCG,Quantitative 829 mIU/mL
== END ==
PROVIDERS: Visit Provider Obstetrics & Gynecology
DX: Z34.90 Encounter for supervision of normal pregnancy, unspecified, unspecified trimester (principal)
CPT/HCPCS: 36415; 84702

== ENCOUNTER → 2018-11-07 08:33 | Outpatient (CLI) | payer MEDICAID, SELFPAY ==
--- NOTE | 2018-11-07 08:36 | US_ITS ---
US OB transvaginal: INDICATION: Suspect early ITS.REASON: US OB Dates ORDERING PHYSICIAN: Kaci Gonzales MD PATIENT AGE: 22 years TECHNIQUE: ultrasound transvaginal scanning. COMPARISON: No previous relevant studies. FINDINGS: There is an intrauterine gestational sac noted measuring 1.35 cm in length. The sac is identified measuring 0.32 cm. There is no pole identified and no heart rate recorded. The right ovary measures 3.0 x 1.5 x 2.7 cm and appears grossly normal. The left ovary measures 5.6 x 2.4 x 3.6 cm and appears grossly normal as well. Impression: Normal-appearing gestational sac and yolk sac without pole identified, consider follow-up study in which it to 10 days to evaluate for viability and more accurate dating.
== END ==
PROVIDERS: PCP Emergency Medicine; Visit Provider Obstetrics & Gynecology
DX: O26.841 Uterine size-date discrepancy, first trimester (principal)
CPT/HCPCS: 76817

== ENCOUNTER → 2018-11-21 17:32 | Outpatient (CLI) | payer MEDICAID, SELFPAY ==
[2018-11-28 12:56] LABS: Neisseria gonorrhoeae, NAA Negative (Negative)
== END ==
PROVIDERS: Visit Provider Obstetrics & Gynecology
DX: Z72.51 High risk heterosexual behavior (principal); Z34.90 Encounter for supervision of normal pregnancy, unspecified, unspecified trimester
CPT/HCPCS: 87491; 87591

== ENCOUNTER → 2018-11-22 15:38 | Outpatient (CLI) | payer MEDICAID, SELFPAY ==
[2018-11-22 16:10] LABS: Basophils # 0.1 K/mm3 (0-0.2); Basophils % 0.6 % (0.1-2.0); Eosinophils # 0.1 K/mm3 (0.0-0.4); Eosinophils % 1.3 % (0.1-12.0); Hematocrit 36.5 % (37.0-47.0); Hemoglobin 11.9 g/dL (12.2-16.2); Lymphocytes # 2.1 K/mm3 (0.7-4.5); Lymphocytes % 21.9 % (10-50); Mean Corpuscular HGB Conc 32.5 g/dL (31.8-35.4); Mean Corpuscular Volume 95.3 fl (81-99); Mean Platelet Volume 7.7 fl (7.4-10.4); Monocytes # 0.5 K/mm3 (0.1-1.0); Monocytes % 5.3 % (1.7-9.3); Neutrophils # 6.8 K/mm3 (1.8-7.8); Neutrophils % 70.9 % (37.0-80.0); Platelet Count 318 K/mm3 (142-424); Red Blood Count 3.83 M/mm3 (4.20-5.40); White Blood Count 9.6 K/mm3 (4.5-13.0)
[2018-11-24 09:18] LABS: Rapid Plasma Reagin Ab Titer Non Reactive (NonRea<1:1)
[2018-11-24 22:49] LABS: HIV Screen 4th Generation wRfx Non Reactive (Non Reactive)
[2018-11-24 22:50] LABS: Hepatitis B Surface Antigen Negative (Negative); Hepatitis C Antibody 0.1 s/co ratio (0.0-0.9); Rubella Antibodies, IgG 1.31 index (Immune >0.99)
== END ==
PROVIDERS: Visit Provider Obstetrics & Gynecology
DX: Z34.90 Encounter for supervision of normal pregnancy, unspecified, unspecified trimester (principal)
CPT/HCPCS: 36415; 85025; 86592; 86703; 86762; 86850; 87340; 87380; G0432

== ENCOUNTER → 2019-02-20 12:45 | Outpatient (CLI) | payer MEDICAID, SELFPAY ==
--- NOTE | 2019-02-20 12:47 | US_ITS ---
US OB /maternal detail: INDICATION: ITS.REASON: US OB Complete ORDERING PHYSICIAN: Kaci Gonzales MD PATIENT AGE: 23 years TECHNIQUE: ultrasound transabdominal scanning. COMPARISON: No previous relevant studies. FINDINGS: Single viable intrauterine gestation. Cephalic position. Placenta: Posterior High placenta grade 1. There is average amount fluid. The cervix appears satisfactory. Closed and measuring 3.6 cm in length. Complete survey performed and was unremarkable on the submitted images as in PACS. No discrete anomalies identified on survey imaging by technologist. Active fetus. Three-vessel cord with satisfactory umbilical cord insertion. 4- chamber heart noted. Survey of brain & ventricles unremarkable. Face and neck survey unremarkable. Diaphragm and chest views unremarkable. Abdomen: Both kidneys noted and unremarkable. Stomach noted and satisfactory. Spine: Survey of the spine satisfactory with no anomalies identified nor imaged. Both arms and legs noted. Amniotic Fluid: Adequate. Maternal adnexa: No significant findings. Measurements: Average ultrasound age 19w6d. Gestational Age 20w0d. Estimated due date by ultrasound age 0807/11/2019. Estimated weight 320 grams. BPD = 20w0d OFD = 20w0d HC = 19w2d AC = 20w0d FL = 20w1d Growth Percentile= 40% Heart Rate = 150 Cerebellum = 20w0d Humerus = 20w2d HC/AC is 1.13 ( 1.09-1.26). CI is 80% (70-86%). FL/BPD is 70%. FL/AC is 22%. IMPRESSION: There is a single live fetus which is in cephalic presentation with an average ultrasound age of 20 weeks 0 days. All parameters correlate. No obvious anomalies. Please see above for detail
== END ==
PROVIDERS: PCP Emergency Medicine; Visit Provider Obstetrics & Gynecology
DX: Z36.0 Encounter for antenatal screening for chromosomal anomalies (principal)
CPT/HCPCS: 76811

== ENCOUNTER → 2019-03-27 07:14 | Outpatient (CLI) | payer MEDICAID, SELFPAY ==
[2019-03-27 07:46] LABS: Glucose,Fasting 83 mg/dL (60-105)
[2019-03-27 07:48] LABS: Basophils % 0.4 % (0.1-2.0); Eosinophils # 0.3 K/mm3 (0.0-0.4); Eosinophils % 2.3 % (0.1-12.0); Hematocrit 30.5 % (37.0-47.0); Hemoglobin 10.3 g/dL (12.2-16.2); Lymphocytes # 2.5 K/mm3 (0.7-4.5); Mean Corpuscular HGB Conc 33.7 g/dL (31.8-35.4); Mean Corpuscular Volume 95.1 fl (81-99); Monocytes # 0.7 K/mm3 (0.1-1.0); Monocytes % 5.1 % (1.7-9.3); Neutrophils # 9.2 K/mm3 (1.8-7.8); Neutrophils % 72.3 % (37.0-80.0); Platelet Count 331 K/mm3 (142-424); Red Blood Count 3.21 M/mm3 (4.20-5.40); Red Cell Distribution Width 12.6 % (11.5-17.5); White Blood Count 12.8 K/mm3 (4.8-10.8)
[2019-03-27 09:01] LABS: Glucose 1 Hour 103 mg/dL (74-106)
== END ==
PROVIDERS: Visit Provider Obstetrics & Gynecology
DX: Z34.90 Encounter for supervision of normal pregnancy, unspecified, unspecified trimester (principal)
CPT/HCPCS: 36415; 82951; 85025

== ENCOUNTER 2019-04-01 17:30 | Outpatient (CLI) | payer MEDICAID, SELFPAY ==
[2019-04-01 17:50] VITALS: BMI 22.6
[2019-04-01 17:53] VITALS: BP 107/63; PULSE 81; RESP 18; TEMP 36.7; O2SAT 99; BMI 22.6
[2019-04-01 19:24] LABS: Amphetamine/Metha Screen,Urine Negative ng/mL (<1000); Barbiturates Screen,Urine Negative ng/mL (<200); Benzodiazepines Screen,Urine Negative ng/mL (<200); Cannabinoid Screen,Urine Negative ng/mL (<50); Cocaine Screen,Urine Negative ng/mL (<300); Methadone Screen,Urine Negative ng/mL (<300); Opiate Screen,Urine Negative ng/mL (<300); Phencyclidine Screen,Urine Negative ng/mL (<25)
== END 2019-04-01 18:25 | disposition home or self-care (01) ==
LOC: OBOUT 17:36 → OB 17:37
PROVIDERS: PCP Obstetrics & Gynecology; Visit Provider Obstetrics & Gynecology
DX: O36.8120 Decreased fetal movements, second trimester, not applicable or unspecified (principal); Z3A.26 26 weeks gestation of pregnancy; R20.2 Paresthesia of skin; R11.0 Nausea
CPT/HCPCS: 59025; 80305

== ENCOUNTER 2019-04-03 01:58 | Outpatient (CLI) | payer MEDICAID, SELFPAY ==
[2019-04-03 02:09] VITALS: BMI 22.3
[2019-04-03 02:18] LABS: Appearance,Urine CLEAR (Clear); Bilirubin,Urine Negative (Negative); Blood, Urine Negative (Negative); Color,Urine YELLOW (Yellow); Glucose,Urine (UA) Negative (Negative); Ketones,Urine Negative (Negative); Leukocyte Esterase,Urine 2+ (Negative); Microscopic, Urine URINE MICROSCOPIC (MICROSCOPIC); Nitrate,Urine Negative (Negative); Protein,Urine Negative (Negative); Specific Gravity, Urine <= 1.005 (1.005-1.030); Urobilinogen,Urine 0.2 EU/dl (0.2)
[2019-04-03 02:23] LABS: Bacteria,Urine 1+ /lpf
[2019-04-03 02:26] LABS: Amphetamine/Metha Screen,Urine Negative ng/mL (<1000); Barbiturates Screen,Urine Negative ng/mL (<200); Benzodiazepines Screen,Urine Negative ng/mL (<200); Cannabinoid Screen,Urine Negative ng/mL (<50); Cocaine Screen,Urine Negative ng/mL (<300); Methadone Screen,Urine Negative ng/mL (<300); Opiate Screen,Urine Negative ng/mL (<300); Phencyclidine Screen,Urine Negative ng/mL (<25)
[2019-04-03 02:36] VITALS: BP 99/63; PULSE 83; RESP 20; TEMP 36.7; O2SAT 99; BMI 22.3
== END 2019-04-03 03:05 | disposition home or self-care (01) ==
LOC: OBOUT 02:01 → OB 02:02
PROVIDERS: PCP Nurse Practitioner Family; Referring Provider Obstetrics & Gynecology; Visit Provider Nurse Practitioner Obstetrics & Gynecology
DX: O36.8120 Decreased fetal movements, second trimester, not applicable or unspecified (principal); Z3A.26 26 weeks gestation of pregnancy
CPT/HCPCS: 59025; 80305; 81001; 87086

== ENCOUNTER → 2019-05-20 14:46 | Outpatient (CLI) | payer MEDICAID, SELFPAY ==
--- NOTE | 2019-05-20 14:48 | US_ITS ---
US OB BPP w/Fet-Mat S/D: Indication: Small for gestational age ORDERING PHYSICIAN: Kaci Gonzales MD PATIENT AGE: 23 years FINDINGS: There is a single fetus which is in cephalic presentation. The following parameters are obtained: Average ultrasound age is 31w6d. Estimated due date by ultrasound is 07/16/2019. Estimated weight is 1690 grams which is 6th percentile BPD: 33w3d OFD: 32w0d HC: 32w3d AC: 30w4d FL: 31w0d heart rate: 135 bpm. HC/AC: 1.11 (0.96-1.17) Cephalic index: 81% (70-86%) FL/BPD: 72% (71-87%) FL/AC: 23% (20-24%) Amniotic fluid index: 8 cm Qualitative AFV: 2 breathing movements: 2 Gross body movements: 2 Tone: 2 Biophysical profile score: 8/8 Doppler evaluation of the umbilical artery: SD ratio: 3.6 Resistive index: 0.72 No obvious anomalies evident. Placenta: Posterior grade 1 Cervix: Appears closed and measures 3 cm, transabdominal imaging IMPRESSION: 1. There is a live intrauterine gestation in cephalic presentation with an average ultrasound age of 31 weeks and 6 days. Estimated weight is 1680 g which is 6 percentile indicating small for gestational age. All parameters correlate. 2. The amniotic fluid volume is at lower limits of normal with an LAURA of 8 cm. 3. Biophysical profile 8 of 8 4. Umbilical artery Doppler evaluation shows an SD ratio of 3.6 which is upper limits of normal
== END ==
PROVIDERS: PCP Nurse Practitioner Family; Visit Provider Obstetrics & Gynecology
DX: O36.5990 Maternal care for other known or suspected poor fetal growth, unspecified trimester, not applicable or unspecified (principal)
CPT/HCPCS: 76819

== ENCOUNTER → 2019-06-05 18:13 | Outpatient (CLI) | payer MEDICAID, SELFPAY | PROVIDERS: Visit Provider Obstetrics & Gynecology | DX: Z34.90 Encounter for supervision of normal pregnancy, unspecified, unspecified trimester (principal) | CPT/HCPCS: 86403 ==

== ENCOUNTER 2019-06-08 13:58 | Outpatient (CLI) | payer MEDICAID, SELFPAY ==
[2019-06-08 14:08] VITALS: BP 111/70; PULSE 108; RESP 20; TEMP 36.9; O2SAT 98; BMI 23.1
[2019-06-08 14:29] LABS: Microscopic, Urine URINE MICROSCOPIC (MICROSCOPIC)
[2019-06-08 14:32] LABS: Appearance,Urine CLEAR (Clear); Bilirubin,Urine Negative (Negative); Blood, Urine Negative (Negative); Color,Urine YELLOW (Yellow); Glucose,Urine (UA) Negative (Negative); Ketones,Urine Negative (Negative); Leukocyte Esterase,Urine 2+ (Negative); Nitrate,Urine Negative (Negative); Protein,Urine Negative (Negative); Urobilinogen,Urine 0.2 EU/dl (0.2)
[2019-06-08 14:40] LABS: Amphetamine/Metha Screen,Urine Negative ng/mL (<1000); Barbiturates Screen,Urine Negative ng/mL (<200); Benzodiazepines Screen,Urine Negative ng/mL (<200); Cannabinoid Screen,Urine Negative ng/mL (<50); Cocaine Screen,Urine Negative ng/mL (<300); Methadone Screen,Urine Negative ng/mL (<300); Opiate Screen,Urine Negative ng/mL (<300); Phencyclidine Screen,Urine Negative ng/mL (<25)
[2019-06-08 14:44] LABS: Fetal Membrane Rupture (Rapid) Negative (Negative)
[2019-06-08 14:45] LABS: Bacteria,Urine 3+ /lpf; Trichomonas,Urine 1+ /lpf; Yeast,Urine 2+ /lpf
== END 2019-06-08 16:05 | disposition home or self-care (01) ==
LOC: OBOUT 14:00 → OB 14:01
PROVIDERS: PCP Emergency Medicine; Visit Provider Obstetrics & Gynecology
DX: O36.8130 Decreased fetal movements, third trimester, not applicable or unspecified (principal); Z3A.35 35 weeks gestation of pregnancy
CPT/HCPCS: 59025; 80305; 81001; 84112; 87086; 96372

== ENCOUNTER 2019-06-13 21:12 | Outpatient (CLI) | payer MEDICAID, SELFPAY ==
[2019-06-13 21:20] VITALS: BMI 23.2
[2019-06-13 21:27] LABS: Microscopic, Urine URINE MICROSCOPIC (MICROSCOPIC)
[2019-06-13 21:43] VITALS: BP 114/70; PULSE 105; RESP 18; TEMP 36.9; BMI 23.2
[2019-06-13 21:52] LABS: Amphetamine/Metha Screen,Urine Negative ng/mL (<1000); Barbiturates Screen,Urine Negative ng/mL (<200); Benzodiazepines Screen,Urine Negative ng/mL (<200); Cannabinoid Screen,Urine Negative ng/mL (<50); Cocaine Screen,Urine Negative ng/mL (<300); Methadone Screen,Urine Negative ng/mL (<300); Opiate Screen,Urine Negative ng/mL (<300); Phencyclidine Screen,Urine Negative ng/mL (<25)
[2019-06-13 21:53] LABS: Appearance,Urine CLEAR (Clear); Bilirubin,Urine Negative (Negative); Blood, Urine Negative (Negative); Color,Urine YELLOW (Yellow); Glucose,Urine (UA) Negative (Negative); Ketones,Urine Negative (Negative); Leukocyte Esterase,Urine 1+ (Negative); Nitrate,Urine Negative (Negative); Protein,Urine Negative (Negative); Specific Gravity, Urine <= 1.005 (1.005-1.030); Urobilinogen,Urine 0.2 EU/dl (0.2)
[2019-06-13 21:54] LABS: Bacteria,Urine 1+ /lpf
== END 2019-06-13 22:15 | disposition home or self-care (01) ==
LOC: OBOUT 21:13 → OB 21:15
PROVIDERS: PCP Emergency Medicine; Visit Provider Obstetrics & Gynecology
DX: O47.03 False labor before 37 completed weeks of gestation, third trimester (principal); Z3A.36 36 weeks gestation of pregnancy
CPT/HCPCS: 59025; 80305; 81001; 87086

== ENCOUNTER → 2019-06-20 16:35 | Outpatient (CLI) | payer MEDICAID, SELFPAY | PROVIDERS: Visit Provider Obstetrics & Gynecology | DX: N39.0 Urinary tract infection, site not specified (principal); Z34.90 Encounter for supervision of normal pregnancy, unspecified, unspecified trimester | CPT/HCPCS: 87086 ==

== ENCOUNTER 2019-06-24 14:28 | Outpatient (CLI) | payer MEDICAID, SELFPAY ==
[2019-06-24 14:57] VITALS: BMI 23.6
[2019-06-24 15:01] VITALS: BP 125/75; PULSE 100; RESP 18; TEMP 36.7; O2SAT 97; BMI 23.6
[2019-06-24 15:05] LABS: Microscopic, Urine URINE MICROSCOPIC (MICROSCOPIC)
[2019-06-24 15:08] LABS: Appearance,Urine CLEAR (Clear); Bilirubin,Urine Negative (Negative); Blood, Urine Negative (Negative); Color,Urine YELLOW (Yellow); Glucose,Urine (UA) Negative (Negative); Ketones,Urine Negative (Negative); Leukocyte Esterase,Urine 1+ (Negative); Nitrate,Urine Negative (Negative); Protein,Urine Negative (Negative); Specific Gravity, Urine <= 1.005 (1.005-1.030); Urobilinogen,Urine 0.2 EU/dl (0.2)
[2019-06-24 15:19] LABS: Amphetamine/Metha Screen,Urine Negative ng/mL (<1000); Barbiturates Screen,Urine Negative ng/mL (<200); Benzodiazepines Screen,Urine Negative ng/mL (<200); Cannabinoid Screen,Urine Negative ng/mL (<50); Cocaine Screen,Urine Negative ng/mL (<300); Methadone Screen,Urine Negative ng/mL (<300); Opiate Screen,Urine Negative ng/mL (<300); Phencyclidine Screen,Urine Negative ng/mL (<25)
[2019-06-24 15:24] LABS: Bacteria,Urine Trace /lpf; Renal Epithelial Cells,Urine Occasional #/lpf (0)
== END 2019-06-24 16:20 | disposition home or self-care (01) ==
LOC: OBOUT 14:30 → OB 14:32
PROVIDERS: Obstetrics & Gynecology; PCP Emergency Medicine; Visit Provider Obstetrics & Gynecology
DX: O36.8130 Decreased fetal movements, third trimester, not applicable or unspecified (principal); Z3A.37 37 weeks gestation of pregnancy
CPT/HCPCS: 59025; 80305; 81001; 87086

== ENCOUNTER 2019-06-28 00:25 | Inpatient (IN) ==
[2019-06-28 01:28] LABS: Basophils % 0.2 % (0.1-2.0); Eosinophils # 0.1 K/mm3 (0.0-0.4); Eosinophils % 0.8 % (0.1-12.0); Hematocrit 34.1 % (37.0-47.0); Hemoglobin 11.8 g/dL (12.2-16.2); Lymphocytes # 3.3 K/mm3 (0.7-4.5); Lymphocytes % 18.4 % (10-50); Mean Corpuscular HGB Conc 34.5 g/dL (31.8-35.4); Mean Corpuscular Volume 94.9 fl (81-99); Mean Platelet Volume 8.3 fl (7.4-10.4); Monocytes # 0.7 K/mm3 (0.1-1.0); Monocytes % 4.1 % (1.7-9.3); Neutrophils # 13.6 K/mm3 (1.8-7.8); Neutrophils % 76.5 % (37.0-80.0); Platelet Count 435 K/mm3 (142-424); Red Blood Count 3.59 M/mm3 (4.20-5.40); Red Cell Distribution Width 13.3 % (11.5-17.5); White Blood Count 17.8 K/mm3 (4.8-10.8)
[2019-06-28 01:40] LABS: Appearance,Urine CLEAR (Clear); Bilirubin,Urine Negative (Negative); Blood, Urine TRACE-I (Negative); Color,Urine YELLOW (Yellow); Glucose,Urine (UA) Negative (Negative); Ketones,Urine Negative (Negative); Leukocyte Esterase,Urine Negative (Negative); Microscopic, Urine URINE MICROSCOPIC (MICROSCOPIC); Protein,Urine Negative (Negative); Specific Gravity, Urine <= 1.005 (1.005-1.030); Urobilinogen,Urine 0.2 EU/dl (0.2)
[2019-06-28 01:50] LABS: Amphetamine/Metha Screen,Urine Negative ng/mL (<1000); Barbiturates Screen,Urine Negative ng/mL (<200); Benzodiazepines Screen,Urine Negative ng/mL (<200); Cannabinoid Screen,Urine Negative ng/mL (<50); Cocaine Screen,Urine Negative ng/mL (<300); Methadone Screen,Urine Negative ng/mL (<300); Opiate Screen,Urine Negative ng/mL (<300); Phencyclidine Screen,Urine Negative ng/mL (<25)
[2019-06-28 02:05] LABS: Bacteria,Urine 1+ /lpf; WBC,Urine Occasional #/hpf (0-3)
[2019-06-28 02:50] LABS: Anisocytosis 1+; Lymphocytes % 13 % (10-50); Neutrophils % 87 % (42-76); Total Cells Counted 100
--- NOTE | 2019-06-28 17:11 | Progress Note ---
Labor Note - Subjective: Date: 06/28/19 Time: 09:09 Comment:: Irregular contractions, with cervical change from 4cm to 6cm SROM approximately 6am tracing has remained reassuring - Objective: NST:: Reactive Contractions:: every 4-5 minutes Cervical Dilation:: 6 Effacement:: 70% Membranes: ruptured - Fetus: monitoring type:: Internal and External (external toco and internal FSE) - Assessment: Patient Problems: All Active Problems Active labor (Acute) 38 weeks gestation of (Acute) Trichomonal vaginitis during (Acute) Penicillin allergy (Acute) Group beta Strep positive (Acute) Headache (Acute) Anemia affecting (Acute) History of idiopathic thrombocytopenic purpura (Acute) History of intravenous drug abuse (Acute) Tobacco smoking affecting (Acute) (Acute) Abscess of skin or subcutaneous tissue (Acute) Folliculitis (Acute) Abscess (Acute) Leukocytosis (Acute) Hypokalemia (Acute) Positive urine test (Acute) Cellulitis (Acute) High risk sexual behavior (Acute) Hordeolum externum (stye) (Acute)
--- NOTE | 2019-06-28 17:17 | Progress Note ---
Labor Note - Subjective: Date: 06/28/19 Time: 13:15 - Objective: NST:: Reactive Contractions:: every 4-5 minutes Cervical Dilation:: 8 Effacement:: 90% Station: +1 Membranes: ruptured - Fetus: Monitoring?: Yes monitoring type:: Internal and External - Assessment: Patient Problems: All Active Problems Active labor (Acute) 38 weeks gestation of (Acute) Trichomonal vaginitis during (Acute) Penicillin allergy (Acute) Group beta Strep positive (Acute) Headache (Acute) Anemia affecting (Acute) History of idiopathic thrombocytopenic purpura (Acute) History of intravenous drug abuse (Acute) Tobacco smoking affecting (Acute) (Acute) Abscess of skin or subcutaneous tissue (Acute) Folliculitis (Acute) Abscess (Acute) Leukocytosis (Acute) Hypokalemia (Acute) Positive urine test (Acute) Cellulitis (Acute) High risk sexual behavior (Acute) Hordeolum externum (stye) (Acute) - Plan: Comment:: Start pitocin augmentation repositioned for cervical edema maternal right continuous monitoring
--- NOTE | 2019-06-28 17:17 | Progress Note ---
[facility] Anesthesia Checklist - Patient Identification Patient Identification: Arm Band, Verbal (Name & ) - Structural Data Admitted From: Inpatient (OB) Planned Operative Procedure/s: C section Consent for Planned Operative Procedure(s) Verified: Yes Verified Documents: Surgical Consent, History and Physical - Chart Verification Results Verified: CBC, BMP, UA (Urine tox) - Additional verifications Anesthesia Reactions: No - Airway Assessment C-Spine Mobility Assessed: Yes TMJ Mobility Assessed: Yes Dentition: Edentulous - Neurological Assessment Level of Consciousness: Awake, Alert, Appropriate, Follows Commands Hx Seizures: No Numbness or tingling in extremities: No - Anesthesia Plan Anesthesia Risk discussed: Yes Anesthesia Plan: Verified ASA Class: II Anesthesia Type: Spinal - Preoperative Comments Pre-Operative Comments: Pt has epidural running, due to failure to progress surgeon called for C/S. Epidural noted to have patch of pain sensation left of umbilicus, prior boluses of LA and opioid failed to provide comfort. Epidural will be removed in OR and SAB performed. [facility] History I have reviewed the patient's past medical history: Yes Medical History: Reports:: Depression, MRSA, Seizures Denies:: Anxiety, Cancer, Diabetes Mellitus Type 1, Diabetes Mellitus Type 2, Hypertension *Have you ever received a pneumonia vaccine?: No *Have you received a flu vaccine this season?: No Other Medical History: Reports: Anemia, Other Laterality Cases: Other Surgeries: Yes: Other. No: Amputation: No Fractures: No Comment: Teeth extraction - *Social History Smoking Status: Current every day smoker Tobacco Type: cigarettes # Packs/Day (cigarettes): 1 Alcohol Intake: never Substance Use Type: former substance user *Occupational Status:: employed Housing: apartment Household Members: none *Travel in the last 8 weeks: None - Psychiatric History Pschychiatric History:: Reports:: Depression Denies:: Anxiety Family Hx:: Cancer, Stroke, Hypertension Para: 0
--- NOTE | 2019-06-28 17:19 | Progress Note ---
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 and patient has become increasingly uncomfortable epidural has been redosed multiple times, and low grade temp 99.8 with increasing abdominal tenderness Have recommended c section due to failure to progress and suspicion of chorioamnionitis Will proceed to the OR - Assessment: Patient Problems: All Active Problems Active labor (Acute) 38 weeks gestation of (Acute) Trichomonal vaginitis during (Acute) Penicillin allergy (Acute) Group beta Strep positive (Acute) Headache (Acute) Anemia affecting (Acute) History of idiopathic thrombocytopenic purpura (Acute) History of intravenous drug abuse (Acute) Tobacco smoking affecting (Acute) (Acute) Abscess of skin or subcutaneous tissue (Acute) Folliculitis (Acute) Abscess (Acute) Leukocytosis (Acute) Hypokalemia (Acute) Positive urine test (Acute) Cellulitis (Acute) High risk sexual behavior (Acute) Hordeolum externum (stye) (Acute)
--- NOTE | 2019-06-28 17:22 | Operative Note ---
Date of procedure: 06/28/19 Pre-op Diagnosis:: 1. 38 2/7 wks 2. Failure to progress in labor 3. Maternal fever/suspected chorioamnionitis Post-op Diagnosis:: 1. 38 2/7 wks 2. Failure to progress in labor 3. Maternal fever/suspected chorioamnionitis Procedure performed:: Primary LTCS Surgeon:: Kaci Gonzales MD CASTING CHIPPER:: Stuart Dumont Anesthesia: spinal Estimated blood loss (mL): 600 Operative findings:: vigorous male infant, grossly normal uterus, ovaries and fallopian tubes Operative note:: The patient was taken to the OR and spinal was administered without difficulty. She was prepped and draped in normal sterile fashion. A pfannenstiel skin incision was made with the scalpel and carried down to the fascia. The fascia was incised in the midline and sharply dissected off the rectus muscles. The muscles were in the midline and the peritoneum was entered sharply and extended bluntly. The Slava-O self retaining retractor was placed in the abdomen and a bladder flap was created. The uterus was incised in the lower uterine segment in a transverse fashion and extended bluntly. Amniotomy was pe rformed and clear fluid noted. The was delivered in controlled fashion, without complication or shoulder dystocia. The was vigorous at and handed to awaiting microbiology teacher/nursing staff for evaluation after cord was clamped and cut. Cord blood was collected and a cord segment was preserved. The placenta was manually extracted and noted to be intact; it was sent for pathology. The uterus was repaired with 0-vicryl in a running/locked fashion. The peritoneum was closed with 2-0 vicryl in a running fashion. The fascia was closed with #1 vicryl in a running fashion. The subcutaneous fat was closed with 2-0 vicryl in an interrupted fashion. The skin was closed with regi. The patient tolerated the procedure well. Sponge, lap, needle and instrument counts were correct x 2. She was taken to PACU awake and in stable condition. Condition: stable Disposition: PACU Specimens:: Placenta to pathology Complications:: none
--- NOTE | 2019-06-28 17:23 | Progress Note ---
[facility] Anesthesia Record Part I Intake, IV Amount: 900 Estimated blood loss (mL): 600 Urine output (mL): 100 Blood Products used (#): none Blood Pressure: 135/70 SaO2: 96 Pulse Rate: 82 Respiratory Rate: 16 Temperature: 97.9 F Patient is:: Awake, Stable Stable to PACU at:: 17:10 Comments:: VSS, pt resting comfortable, pt able to move lower extremities
--- NOTE | 2019-06-28 17:23 | Progress Note ---
[facility] Anesthesia Record Part II Discharge Time: 17:40 Destination: Obstetric PACU nurse assessment reviewed?: Yes Patient Condition:: Good Anesthesia Complications:: None Swallowing reflex intact?: Yes Cyanosis?: No
[2019-06-29 06:43] LABS: Basophils % 0.1 % (0.1-2.0); Eosinophils % 0.1 % (0.1-12.0); Hematocrit 27.7 % (37.0-47.0); Lymphocytes # 2.4 K/mm3 (0.7-4.5); Lymphocytes % 10.6 % (10-50); Mean Corpuscular HGB Conc 32.7 g/dL (31.8-35.4); Mean Corpuscular Volume 95.8 fl (81-99); Mean Platelet Volume 8.2 fl (7.4-10.4); Monocytes # 1.2 K/mm3 (0.1-1.0); Neutrophils # 19.3 K/mm3 (1.8-7.8); Neutrophils % 84.3 % (37.0-80.0); Platelet Count 381 K/mm3 (142-424); Red Blood Count 2.89 M/mm3 (4.20-5.40); Red Cell Distribution Width 13.3 % (11.5-17.5)
[2019-06-29 08:52] LABS: Lymphocytes % 11 % (10-50); Monocytes % 8 % (2-9); Neutrophils % 81 % (42-76); RBC Morphology Normal; Total Cells Counted 100
--- NOTE | 2019-06-29 14:25 | Progress Note ---
Internal Medicine - PN: Subj *Date: 06/29/19 *Time: 14:23 Interval history: POD #1 primary c section No unusual complaints Ambulating and voiding without difficulty Tolerating regular diet Lochia appropriate and pain control sufficient Exam Vital signs and Labs for Last 24 Hours: Temp Pulse Resp BP Pulse Ox 98.3 F 92 H 16 127/73 100 06/28/19 20:00 06/28/19 20:00 06/28/19 20:00 06/28/19 20:00 06/28/19 20:00 Laboratory Results - last 24 hr 06/29/19 05:55: WBC 23.0 H* D, RBC 2.89 L, Hgb 9.0 L, Hct 27.7 L, MCV 95.8, MCH 31.3 H, MCHC 32.7, RDW 13.3, Plt Count 381, MPV 8.2, Neut % (Auto) 84.3 H, Lymph % (Auto) 10.6, [place] % (Auto) 5.0, Eos % (Auto) 0.1, Baso % (Auto) 0.1, Neut # (Auto) 19.3 H, Lymph # (Auto) 2.4, [place] # (Auto) 1.2 H, Eos # (Auto) 0.0, Baso # (Auto) 0.0, Total Counted 100, Neutrophils % (Manual) 81 H, Lymphocytes % (Manual) 11, Monocytes % (Manual) 8, Platelet Estimate Normal, RBC Morphology Normal I & O for Last 24 hours: Intake & Output 06/27/19 06/28/19 06/29/19 06/30/19 11:59 11:59 11:59 11:59 Intake Total 1100 / 1100 Output Total 3300 / 3300 Balance -2200 / -2200 Weight 140 lb Narrative: CONSTITUTIONAL: no acute distress HEENT: mucous membranes moist PULMONARY: breathing unlabored without audible wheezes CV: no tachycardia or visible JVD; normal LE peripheral pulses ABD: soft, ND; appropriately tender but no rebound/guarding : fundus firm at/below umbilicus SKIN: incision well approximated with no drainage, erythema or induration EXT: 1+ edema LEs NEURO: alert/oriented, no altered mental status PSYCH: appropriate mood and demeanor without anxiety/depression Assessment and Plan (1) 38 weeks gestation of Current visit: Yes Status: Acute Category: Medical Code(s): Z3A.38 - 38 weeks gestation of (2) Active labor Current visit: Yes Status: Acute Category: Medical (3) Delivery by section Current visit: Yes Status: Acute Category: Surgical (4) Trichomonal vaginitis during Current visit: Yes Status: Acute Category: Medical Code(s): O23.599 - Infection of other part of genital tract in , unspecified trimester; A59.01 - Trichomonal vulvovaginitis (5) Penicillin allergy Current visit: Yes Status: Acute Category: Medical Code(s): Z88.0 - Allergy status to penicillin (6) Group beta Strep positive Current visit: Yes Status: Acute Category: Medical Code(s): B95.1 - Streptococcus, group B, as the cause of diseases classified elsewhere (7) Anemia affecting Problem details: HgB 10.3 Current visit: Yes Status: Acute Category: Medical Code(s): O99.019 - Anemia complicating , unspecified trimester (8) Tobacco smoking affecting Current visit: Yes Status: Acute Category: Medical Code(s): O99.330 - Smoking (tobacco) complicating , unspecified trimester - Assessment and plan all Dx Assessment and Plan for all problems:: Routine postop/ care Continue advance care as tolerated
--- NOTE | 2019-06-30 10:34 | Progress Note ---
Internal Medicine - PN: Subj *Date: 06/30/19 *Time: 10:32 Interval history: POD #2 primary CS No unusual complaints Tolerating regular diet Ambulating and voiding without difficulty Lochia normal Pain control sufficient Exam Vital signs and Labs for Last 24 Hours: Temp Pulse Resp BP Pulse Ox 97.7 F 78 16 117/55 L 99 06/30/19 04:52 06/30/19 04:52 06/30/19 04:52 06/30/19 04:52 06/29/19 19:47 I & O for Last 24 hours: Intake & Output 06/27/19 06/28/19 06/29/19 06/30/19 11:59 11:59 11:59 11:59 Intake Total 1100 / 1100 Output Total 3300 / 3300 Balance -2200 / -2200 Weight 140 lb Narrative: CONSTITUTIONAL: no acute distress HEENT: mucous membranes moist PULMONARY: breathing unlabored without audible wheezes CV: no tachycardia or visible JVD; normal LE peripheral pulses ABD: soft, ND; appropriately tender but no rebound/guarding : fundus firm at/below umbilicus SKIN: incision well approximated with no drainage, erythema or induration EXT: 1+ edema LEs NEURO: alert/oriented, no altered mental status PSYCH: appropriate mood and demeanor without anxiety/depression Assessment and Plan (1) 38 weeks gestation of Current visit: Yes Status: Acute Category: Medical Code(s): Z3A.38 - 38 weeks gestation of (2) Active labor Current visit: Yes Status: Acute Category: Medical (3) Delivery by section Current visit: Yes Status: Acute Category: Surgical (4) Trichomonal vaginitis during Current visit: Yes Status: Acute Category: Medical Code(s): O23.599 - Infection of other part of genital tract in , unspecified trimester; A59.01 - Trichomonal vulvovaginitis (5) Penicillin allergy Current visit: Yes Status: Acute Category: Medical Code(s): Z88.0 - Allergy status to penicillin (6) Group beta Strep positive Current visit: Yes Status: Acute Category: Medical Code(s): B95.1 - Streptococcus, group B, as the cause of diseases classified elsewhere (7) Anemia affecting Problem details: HgB 10.3 Current visit: Yes Status: Acute Category: Medical Code(s): O99.019 - Anemia complicating , unspecified trimester (8) Tobacco smoking affecting Current visit: Yes Status: Acute Category: Medical Code(s): O99.330 - Smoking (tobacco) complicating , unspecified trimester - Assessment and plan all Dx Assessment and Plan for all problems:: Continue routine /postop care PNV with FeSO4 supplementation Anticipate discharge home tomorrow
[2019-07-01 07:31] VITALS: BP 106/71
--- NOTE | 2019-07-01 09:50 | Discharge Summary ---
General - General Admission date:: 06/28/19 Discharge date: 07/01/19 HPI HPI: POD #3 No complaints Tolerating regular diet, ambulating and voiding ready for discharge Hospital Course Hospital Course: G1 admitted at 38+ wks in active labor Primary CS for failure to progress Postop course uneventful Discharged home on POD #3 Rhogam Administration: Not Indicated Objective Vital signs: Temp Pulse Resp BP Pulse Ox 98.4 F 86 16 106/71 L 98 07/01/19 04:38 07/01/19 04:38 07/01/19 04:38 07/01/19 04:38 07/01/19 04:38 Narrative: CONSTITUTIONAL: no acute distress HEENT: mucous membranes moist PULMONARY: breathing unlabored without audible wheezes CV: no tachycardia or visible JVD; normal LE peripheral pulses ABD: soft, ND; appropriately tender but no rebound/guarding : fundus firm at/below umbilicus SKIN: incision well approximated with no drainage, erythema or induration EXT: 1+ edema LEs NEURO: alert/oriented, no altered mental status PSYCH: appropriate mood and demeanor without anxiety/depression DS: Diagnosis - Discharge Diagnosis (1) 38 weeks gestation of Status: Acute (2) Active labor Status: Acute (3) Delivery by section Status: Acute (4) Trichomonal vaginitis during Status: Acute (5) Penicillin allergy Status: Acute (6) Group beta Strep positive Status: Acute (7) Anemia affecting Status: Acute Problem details: HgB 10.3 (8) Tobacco smoking affecting Status: Acute Discharge Plan - Patient Discharge Instructions ACTIVITY: Continue current activity DIET: regular diet Additional Instructions: NO HEAVY LIFTING, NO STRENUOUS ACTIVITY, NO DRIVING WHILE TAKING PRESCRIPTION NARCOTICS, NOTHING IN THE VAGINA FOR 6 WEEKS. Patient Instructions: Depression, Hemorrhage, Surgical Site Infection, DI for Postoperative Pain, [facility] Post Discharge Instructions - Follow up Plan Follow up with: Kaci Gonzales MD [Staff Physician] - Disposition: Home, Self-Long Term Medications: Home Medications Medication Instructions Recorded Confirmed Type pediatric multivitamin with iron 1 tab PO DAILY 11/21/18 06/28/19 History and other minerals chewable tablet Nitrofurantoin Monohyd/M-Cryst 100 mg PO BID 06/28/19 06/28/19 History [Nitrofurantoin [place]-Mcr 100 mg] Ibuprofen [Motrin 400mg 800 mg PO Q6HP PRN #30 tab 07/01/19 Rx tablet] Oxycodone HCl [OxyIR 5mg tablet] 5 mg PO Q6HP PRN #30 tab 07/01/19 Rx Prescriptions/Medication Reconciliation: New Ibuprofen [Motrin 400mg tablet] 800 mg PO Q6HP PRN #30 tab PRN Reason: Mild To Moderate Pain Oxycodone HCl [OxyIR 5mg tablet] 5 mg PO Q6HP PRN #30 tab PRN Reason: Moderate Pain Continued pediatric multivitamin with iron and other minerals chewable tablet 1 tab PO DAILY Nitrofurantoin Monohyd/M-Cryst [Nitrofurantoin [place]-Mcr 100 mg] 100 mg PO BID - Problem Reconciliation Problems Reviewed?: Yes
== END 2019-07-01 11:15 | disposition home or self-care (01) | DRG 787 ==
LOC: OBOUT 00:25 → OB 00:29
PROVIDERS: ADMIT Obstetrics & Gynecology; ATTEND Obstetrics & Gynecology
CPT/HCPCS: 36415; 59025; 80305; 81001; 85007; 85025; 86850; 94761; J0595; J2405

== ENCOUNTER 2020-03-01 15:06 | Emergency (ER) | payer OTHER, SELFPAY ==
[2020-03-01 15:07] VITALS: BMI 20.1
--- NOTE | 2020-03-01 15:08 | CT_ITS ---
PROCEDURE: CT HEAD/BRAIN WO CON Patient Age:24Y CLINICAL INDICATION: seizure patient denies hitting head COMPARISON: [facility] CT HEAD WITHOUT CONTRAST from 08/02/2011 TECHNIQUE: No IV contrast axial images were obtained. All CT scans at the facility use one or more dose reduction, viz: automated exposure control, ma/kV adjustment per patient size (including targeted exams where dose is matched to indication, i.e. head), or iterative reconstruction technique. FINDINGS: No acute intracranial findings.. No significant change since [address] No intracranial hemorrhage. No hydrocephalus.The ventricles and basal cisterns appear clear and satisfactory. No mass or midline shift nor mass effect. No subdural or extra-axial fluid collection is evident. Posterior fossa unremarkable. Skull intact- calvarium unremarkable appearance. Nomastoid effusions. Mastoid air cells are well developed and clear.Middle ear clear. IAC's symmetric. Nosinus air-fluid level. Visualized portions of the paranasal sinuses and orbits unremarkable. Moderate adenoidal hypertrophy incidentally noted IMPRESSION: No acute intracranial findings . No significant change since [address] head Dictated by: Sharif Hughes MD 03/01/2020 16:27 Electronically signed by Sharif Hughes MD in [place] 03/01/2020 16:27
--- NOTE | 2020-03-01 15:12 | XR_ITS ---
PROCEDURE: XR CHEST 2V Patient Age:24Y CLINICAL HISTORY: seizure . Nonsmoker. COMPARISON: CXR CHEST(2 VIEWS-NOT PORTABLE) from 11/11/2009 FINDINGS: PA and lateral chest performed. Comparison to October 2009. PA film is not optimal but the lungs appear well expanded and clear with nothing definitely acute. Heart, mickie and mediastinal structures satisfactory. Normal pulmonary vascularity. No pneumothorax., no pleural effusion. Chest wall unremarkable IMPRESSION: Lungs clear. Nothing definitely acute Dictated by: Sharif Hughes MD 03/01/2020 16:58 Electronically signed by Sharif Hughes MD in [place] 03/01/2020 16:58
[2020-03-01 15:13] VITALS: BP 116/81; PULSE 99; RESP 16; TEMP 36.8; O2SAT 97; BMI 18.8
[2020-03-01 15:24] LABS: Microscopic, Urine URINE MICROSCOPIC (MICROSCOPIC)
[2020-03-01 15:26] LABS: Appearance,Urine SL CLOUDY (Clear); Bilirubin,Urine Negative (Negative); Blood, Urine Negative (Negative); Color,Urine YELLOW (Yellow); Glucose,Urine (UA) Negative (Negative); Ketones,Urine Negative (Negative); Leukocyte Esterase,Urine 1+ (Negative); Nitrate,Urine Negative (Negative); Protein,Urine Negative (Negative); Specific Gravity, Urine 1.025 (1.005-1.030); Urobilinogen,Urine 0.2 EU/dl (0.2)
[2020-03-01 15:28] LABS: Urine Pregnancy, HCG Qual. Negative (Negative)
[2020-03-01 15:29] LABS: Basophils # 0.2 K/mm3 (0-0.2); Basophils % 1.9 % (0.1-2.0); Eosinophils # 0.3 K/mm3 (0.0-0.4); Eosinophils % 2.4 % (0.1-12.0); Hematocrit 40.1 % (37.0-47.0); Hemoglobin 12.8 g/dL (12.2-16.2); Lymphocytes # 3.5 K/mm3 (0.7-4.5); Lymphocytes % 28.9 % (10-50); Mean Corpuscular Hemoglobin 31.5 pg (27.0-31.2); Mean Corpuscular Volume 98.4 fl (81-99); Monocytes # 0.9 K/mm3 (0.1-1.0); Monocytes % 6.9 % (1.7-9.3); Neutrophils # 7.4 K/mm3 (1.8-7.8); Neutrophils % 59.9 % (37.0-80.0); Platelet Count 437 K/mm3 (142-424); Red Blood Count 4.08 M/mm3 (4.20-5.40); White Blood Count 12.3 K/mm3 (4.8-10.8)
[2020-03-01 15:35] LABS: Chloride 106 mmol/L (98-107); Potassium 3.7 mmoL/L (3.5-5.1); Sodium 139 mmol/L (136-145)
[2020-03-01 15:37] LABS: Blood Urea Nitrogen 5 mg/dl (7-17)
[2020-03-01 15:38] LABS: Alanine Aminotransferase 104 U/L (12-78); Albumin Level 4.4 g/dl (3.5-5.0); Albumin/Globulin Ratio 1.4 (1.1-1.8); Alkaline Phosphatase 85 U/L (38-126); Amorphous Sediment,Urine 3+ /lpf; Anion Gap 16.7 mEq/L (5-15); Aspartate Amino Transferase 57 U/L (14-36); Barbiturates Screen,Urine Negative ng/ml (<200); Benzodiazepines Screen,Urine Negative ng/ml (<200); Bilirubin,Total 0.3 mg/dl (0.2-1.3); Calcium 9.5 mg/dl (8.4-10.2); Carbon Dioxide 20 mmol/L (22.0-30.0); Creatinine Clearance Estimated 99 mL/min (50-200); Estimated Glomerular Filt Rate 105 ml/min (>60); GFR (African American) 127 ML/MIN (>60); Globulin 3.1 g/dL (1.3-3.2); Glucose 111 mg/dl (74-100); Squamous Epithelial Cell,Urine 50-100 #/hpf (0-5); Total Protein,Serum 7.5 g/dl (6.3-8.2)
[2020-03-01 15:39] LABS: Amphetamine/Metha Screen,Urine Negative ng/ml (<1000); Cocaine Screen,Urine Negative ng/ml (<300)
[2020-03-01 15:40] LABS: Methadone Screen,Urine Negative ng/ml (<300)
[2020-03-01 15:41] LABS: Cannabinoid Screen,Urine Negative ng/ml (<50); Opiate Screen,Urine Negative ng/ml (<300)
[2020-03-01 15:42] LABS: Ethyl Alcohol < 10 mg/dl (0-10); Phencyclidine Screen,Urine Negative ng/ml (<25)
[2020-03-01 15:53] LABS: Troponin I < 0.01 ng/ml (0.00-0.034)
[2020-03-01 15:56] LABS: T4 (Thyroxine) 7.1 ug/dl (5.53-11.0)
--- NOTE | 2020-03-01 16:09 | HMH.EDSEIZ ---
ED Disposition Clinical Impression: Epileptic seizure Disposition: Home, Self-Care Condition on Discharge: Good Instructions: DI for Seizure (Not Epilepsy/Seizure Disorder), DI for Seizure Disorder -- Adult, DI for Seizure Disorder -- Child Additional Instructions: Please follow-up with a neurologist. And please remember to pick your prescription up. Prescriptions: Primidone [Mysoline 50mg tablet] 100 mg PO HS 30 Days #60 tab Transmission Status: Sent to [id number] Referrals: Provider,Referral, [Primary Care Provider] - - Critical Care Critical Care Time: No Attestation: On 03/01/20, the high probability of a clinically significant, sudden or life threatening deterioration of the following system(s) required my full and direct attention, intervention and personal management. The time I documented below is in addition to time spent performing reported procedures but includes the following listed in this critical care notation. Medical Decision Making - Medical Records Medical records reviewed: Yes: I reviewed the patient's medical records. - Timmy Inquiry Pt receiving controlled substance: No Vital Signs: 03/01/20 15:13 Temperature 98.3 F Temperature Source Oral Pulse Rate [Right Radial] 99 H Respiratory Rate 16 Blood Pressure [Right Arm] 116/81 Blood Pressure Mean [Right Arm] 92 Blood Pressure Source [Right Arm] Automatic Cuff Blood Pressure Position [Right Arm] Sitting 02 Sat by Pulse Oximetry 97 Oxygen Delivery Method Room Air - Lab Data Lab results reviewed: Yes: I reviewed the patient's lab results. Lab Results 03/01/20 15:15: Urine Color Yellow, Urine Appearance Sl cloudy, Urine pH 6.0, Ur Specific [place] 1.025, Urine Protein Negative, Urine Glucose (UA) Negative, Urine Ketones Negative, Urine Blood Negative, Urine Nitrate Negative, Urine Bilirubin Negative, Urine Urobilinogen 0.2, Ur Leukocyte Esterase 1+ A, Urine RBC None, Urine WBC 10-20, Ur Squamous Epith Cells 50-100, Amorphous Sediment 3+, Urine Bacteria None 03/01/20 15:15: WBC 12.3 H, RBC 4.08 L, Hgb 12.8, Hct 40.1, MCV 98.4, MCH 31.5 H, MCHC 32.0, RDW 14.0, Plt Count 437 H, MPV 9.0, Neut % (Auto) 59.9, Lymph % (Auto) 28.9, [place] % (Auto) 6.9, Eos % (Auto) 2.4, Baso % (Auto) 1.9, Neut # (Auto) 7.4, Lymph # (Auto) 3.5, [place] # (Auto) 0.9, Eos # (Auto) 0.3, Baso # (Auto) 0.2 03/01/20 15:15: Sodium 139, Potassium 3.7, Chloride 106, Carbon Dioxide 20 L, Anion Gap 16.7 H, BUN 5 L, Creatinine 0.70, Estimated Creat Clear 99, Estimated GFR 105, Est GFR ( Amer) 127, Glucose 111 H, Calcium 9.5, Total Bilirubin 0.3, AST 57 H, ALT 104 H, Alkaline Phosphatase 85, Troponin I < 0.01, Total Protein 7.5, Albumin 4.4, Globulin 3.1, Albumin/Globulin Ratio 1.4, Thyroxine (T4) 7.1 03/01/20 15:15: Urine Opiates Screen Negative, Urine Methadone Screen Negative, Ur Barbituates Screen Negative, Ur Phencyclidine Scrn Negative, Ur Amphetamines Screen Negative, U Benzodiazepines Scrn Negative, Urine Cocaine Screen Negative, U Marijuana (THC) Screen Negative 03/01/20 15:15: Urine HCG, Qual Negative 03/01/20 15:15: Plasma/Serum Alcohol < 10 Result diagrams: 03/01/20 15:15 03/01/20 15:15 Orders (Tests/Meds): ORDERS Category Date Time Status CT head/brain wo con Stat Cat Scan 03/01/20 15:08 Taken Chest XR 2 view (NOT portable) [XR chest 2V] Stat Exams 03/01/20 15:12 Taken Comprehensive Metabolic Panel Stat Lab 03/01/20 15:15 Results T4 (Thyroxine) Stat Lab 03/01/20 15:15 Results Thyroid Stimulating Hormone Stat Lab 03/01/20 15:15 Results Troponin I Q3H Lab 03/01/20 18:15 Ordered Troponin I Q3H Lab 03/01/20 21:15 Ordered Troponin I Stat Lab 03/01/20 15:15 Results Urine Culture Stat Micro 03/01/20 15:15 Received - CT Data CT Scan: Head Time Received: 16:00 Preliminary Findings: Normal/NAD Seizures HPI - General Chief Complaint: Seizure Stated Complaint: seizure Time Seen by Provider: 03/01/20 16:09 Mode of Arriv
[2020-03-01 16:10] LABS: Thyroid Stimulating Hormone 2.28 uIU/mL (0.465-4.68)
[2020-03-01 16:30] VITALS: BP 120/85; PULSE 87; RESP 20; TEMP 36.6; O2SAT 98
== END 2020-03-01 16:31 | disposition home or self-care (01) ==
PROVIDERS: Emergency Provider Family Medicine
DX: G40.909 Epilepsy, unspecified, not intractable, without status epilepticus (principal); F17.210 Nicotine dependence, cigarettes, uncomplicated; Z88.0 Allergy status to penicillin
CPT/HCPCS: 70450; 71046; 80053; 80305; 81001; 81025; 84436; 84443; 84484; 85025; 87086; 99283

== ENCOUNTER 2020-07-08 01:54 | Emergency (ER) | payer OTHER, SELFPAY ==
[2020-07-08 01:56] VITALS: BP 116/68; PULSE 100; RESP 16; TEMP 37.1; O2SAT 96; BMI 18.8
[2020-07-08 02:29] LABS: Basophils # 0.1 K/mm3 (0-0.2); Basophils % 0.6 % (0.1-2.0); Eosinophils # 0.2 K/mm3 (0.0-0.4); Eosinophils % 2.2 % (0.1-12.0); Hematocrit 34.6 % (37.0-47.0); Lymphocytes # 2.6 K/mm3 (0.7-4.5); Lymphocytes % 27.4 % (10-50); Mean Corpuscular HGB Conc 34.6 g/dL (31.8-35.4); Mean Corpuscular Hemoglobin 33.1 pg (27.0-31.2); Mean Corpuscular Volume 95.6 fl (81-99); Mean Platelet Volume 9.1 fl (7.4-10.4); Monocytes # 0.6 K/mm3 (0.1-1.0); Monocytes % 6.5 % (1.7-9.3); Neutrophils # 6.1 K/mm3 (1.8-7.8); Neutrophils % 63.3 % (37.0-80.0); Platelet Count 275 K/mm3 (142-424); Red Blood Count 3.62 M/mm3 (4.20-5.40); Red Cell Distribution Width 13.5 % (11.5-17.5); White Blood Count 9.6 K/mm3 (4.8-10.8)
[2020-07-08 02:30] LABS: Alanine Aminotransferase 16 U/L (12-78); Albumin Level 4.1 g/dl (3.5-5.0); Albumin/Globulin Ratio 1.4 (1.1-1.8); Alkaline Phosphatase 78 U/L (38-126); Anion Gap 12.1 mEq/L (5-15); Aspartate Amino Transferase 22 U/L (14-36); Bilirubin,Total 0.2 mg/dl (0.2-1.3); Blood Urea Nitrogen 9 mg/dl (7-17); Calcium 9.4 mg/dl (8.4-10.2); Carbon Dioxide 26 mmol/L (22.0-30.0); Chloride 105 mmol/L (98-107); Creatinine Clearance Estimated 99 mL/min (50-200); Estimated Glomerular Filt Rate 105 ml/min (>60); GFR (African American) 127 ML/MIN (>60); Globulin 2.9 g/dL (1.3-3.2); Glucose 98 mg/dl (74-100); Potassium 3.1 mmoL/L (3.5-5.1); Sodium 140 mmol/L (136-145)
--- NOTE | 2020-07-08 02:34 | HMH.EDSEIZ ---
ED Disposition Clinical Impression: Generalized seizure Disposition: Left Against Medical Advice Condition on Discharge: Good Instructions: DI for Seizure Disorder -- Adult Additional Instructions: see neuro and pcp for follow up - Critical Care Critical Care Time: No Attestation: On , the high probability of a clinically significant, sudden or life threatening deterioration of the following system(s) required my full and direct attention, intervention and personal management. The time I documented below is in addition to time spent performing reported procedures but includes the following listed in this critical care notation. Medical Decision Making - Medical Records Medical records reviewed: Yes: I reviewed the patient's medical records. - Timmy Inquiry Pt receiving controlled substance: No Vital Signs: 07/08/20 01:56 07/08/20 02:56 Temperature 98.8 F 98 F Temperature Source Oral Pulse Rate 93 H Pulse Rate [Right] 100 H Respiratory Rate 16 18 Blood Pressure 112/70 Blood Pressure [Right Arm] 116/68 Blood Pressure Mean [Right Arm] 84 Blood Pressure Source Automatic Cuff Blood Pressure Source [Right Arm] Automatic Cuff Blood Pressure Position Supine Blood Pressure Position [Right Arm] Supine 02 Sat by Pulse Oximetry 96 Oxygen Delivery Method Room Air - Lab Data Lab results reviewed: Yes: I reviewed the patient's lab results. Lab Results 07/08/20 02:01: WBC 9.6, RBC 3.62 L, Hgb 12.0 L, Hct 34.6 L, MCV 95.6, MCH 33.1 H, MCHC 34.6, RDW 13.5, Plt Count 275, MPV 9.1, Neut % (Auto) 63.3, Lymph % (Auto) 27.4, [place] % (Auto) 6.5, Eos % (Auto) 2.2, Baso % (Auto) 0.6, Neut # (Auto) 6.1, Lymph # (Auto) 2.6, [place] # (Auto) 0.6, Eos # (Auto) 0.2, Baso # (Auto) 0.1 07/08/20 02:01: Sodium 140, Potassium 3.1 L, Chloride 105, Carbon Dioxide 26, Anion Gap 12.1, BUN 9, Creatinine 0.70, Estimated Creat Clear 99, Estimated GFR 105, Est GFR ( Amer) 127, Glucose 98, Calcium 9.4, Total Bilirubin 0.2, AST 22, ALT 16, Alkaline Phosphatase 78, Total Protein 7.0, Albumin 4.1, Globulin 2.9, Albumin/Globulin Ratio 1.4 07/08/20 02:30: Urine Color Yellow, Urine Appearance Clear, Urine pH 7.0, Ur Specific [place] <= 1.005, Urine Protein Negative, Urine Glucose (UA) Negative, Urine Ketones Negative, Urine Blood Negative, Urine Nitrate Negative, Urine Bilirubin Negative, Urine Urobilinogen 0.2, Ur Leukocyte Esterase Negative, Urine RBC Occasional, Urine WBC 3-5, Ur Squamous Epith Cells 20-50, Urine Bacteria 3+ 07/08/20 02:30: Urine HCG, Qual Negative 07/08/20 02:30: Urine Opiates Screen Negative, Urine Methadone Screen Negative, Ur Barbituates Screen Negative, Ur Phencyclidine Scrn Negative, Ur Amphetamines Screen Negative, U Benzodiazepines Scrn Negative, Urine Cocaine Screen Negative, U Marijuana (THC) Screen Negative Result diagrams: 07/08/20 02:01 07/08/20 02:01 Orders (Tests/Meds): ORDERS Category Date Time Status Chest XR 2 view (NOT portable) [XR chest 2V] Stat Exams 07/08/20 02:05 Stop Req Urine Culture Stat Micro 07/08/20 02:30 Received Seizures HPI - General Chief Complaint: Seizure Stated Complaint: seizures Time Seen by Provider: 07/08/20 02:00 Mode of Arrival: EMS Source of Information: Patient, EMS, Medical Record Limitations: No Limitations Description of Symptoms (Recalled from ER Triage Doc. by RN): ems reports that they picked [place] the [facility]. when they arrived she was still seizing ut is post ictal upon arrival. pt is lethargic and unsure of medications. - History of Present Illness HPI Narrative: known seizure disorder and had sz - has declined to take rx - no other c/o MD complaint: seizure Onset (ago): hour(s) Description of Episode: post-event confusion Witnessed: yes - by bystander Trauma: No Seizure History: known seizure disorder Associated symptoms: denies other symptoms - Related Data Previous Rx's Medication Instructions Recorded Dicyclomine HCl
[2020-07-08 02:37] LABS: Appearance,Urine CLEAR (Clear); Bilirubin,Urine Negative (Negative); Blood, Urine Negative (Negative); Color,Urine YELLOW (Yellow); Glucose,Urine (UA) Negative (Negative); Ketones,Urine Negative (Negative); Leukocyte Esterase,Urine Negative (Negative); Microscopic, Urine URINE MICROSCOPIC (MICROSCOPIC); Nitrate,Urine Negative (Negative); Protein,Urine Negative (Negative); Specific Gravity, Urine <= 1.005 (1.005-1.030); Urobilinogen,Urine 0.2 EU/dl (0.2)
[2020-07-08 02:39] LABS: Urine Pregnancy, HCG Qual. Negative (Negative)
--- NOTE | 2020-07-08 02:48 | PC.NURSE ---
pt is refusing chest xray and states she just wants to leave.
[2020-07-08 02:49] LABS: RBC,Urine Occasional #/hpf (0-3); Squamous Epithelial Cell,Urine 20-50 #/hpf (0-5)
[2020-07-08 02:50] LABS: Amphetamine/Metha Screen,Urine Negative ng/ml (<1000); Bacteria,Urine 3+ /lpf; Barbiturates Screen,Urine Negative ng/ml (<200)
[2020-07-08 02:51] LABS: Benzodiazepines Screen,Urine Negative ng/ml (<200)
[2020-07-08 02:52] LABS: Cannabinoid Screen,Urine Negative ng/ml (<50); Cocaine Screen,Urine Negative ng/ml (<300)
[2020-07-08 02:53] LABS: Methadone Screen,Urine Negative ng/ml (<300)
[2020-07-08 02:54] LABS: Opiate Screen,Urine Negative ng/ml (<300); Phencyclidine Screen,Urine Negative ng/ml (<25)
[2020-07-08 02:56] VITALS: BP 112/70; PULSE 93; RESP 18; TEMP 36.6
== END 2020-07-08 02:56 | disposition left against medical advice (07) ==
PROVIDERS: Emergency Provider Emergency Medicine; PCP Nurse Practitioner Family
DX: G40.909 Epilepsy, unspecified, not intractable, without status epilepticus (principal); I25.10 Atherosclerotic heart disease of native coronary artery without angina pectoris; F33.1 Major depressive disorder, recurrent, moderate; F17.210 Nicotine dependence, cigarettes, uncomplicated; Z88.0 Allergy status to penicillin
CPT/HCPCS: 80053; 80305; 81001; 81025; 85025; 87086; 99282

== ENCOUNTER 2020-08-19 20:37 | Emergency (ER) | payer OTHER, SELFPAY ==
[2020-08-19 20:38] VITALS: BP 116/66; PULSE 88; RESP 16; TEMP 37.1; O2SAT 99; BMI 17.4
--- NOTE | 2020-08-19 21:06 | HMH.EDUROGF ---
ED Disposition Clinical Impression: Bartholin's gland abscess Disposition: Home, Self-Care Condition on Discharge: Good Instructions: DI for Bartholin Gland Cyst Additional Instructions: warm compresses and call obgyn hospitalist physician in am and use meds Prescriptions: Minocycline HCl [Minocycline HCl 100mg Tab*] 100 mg PO BID #20 tab Transmission Status: Pending to [id number] Referrals: Keena Dawkins [Primary Care Provider] - - Critical Care Critical Care Time: No Attestation: On 08/19/20, the high probability of a clinically significant, sudden or life threatening deterioration of the following system(s) required my full and direct attention, intervention and personal management. The time I documented below is in addition to time spent performing reported procedures but includes the following listed in this critical care notation. Medical Decision Making - Medical Records Medical records reviewed: Yes: I reviewed the patient's medical records. - Timmy Inquiry Pt receiving controlled substance: No Vital Signs: 08/19/20 20:38 Temperature 98.7 F Temperature Source Oral Pulse Rate [Left Radial] 88 Respiratory Rate 16 Blood Pressure [Right Arm] 116/66 Blood Pressure Mean [Right Arm] 82 Blood Pressure Source [Right Arm] Automatic Cuff Blood Pressure Position [Right Arm] Sitting 02 Sat by Pulse Oximetry 99 Oxygen Delivery Method Room Air - Lab Data Lab results reviewed: Yes: I reviewed the patient's lab results. Orders (Tests/Meds): ED MEDICATIONS Generic Name Dose Route Start Last Admin Trade Name Freq PRN Reason Stop Dose Admin Minocycline HCl 100 mg 08/19/20 21:25 Minocycline Hcl 100mg Capsule PO 08/19/20 21:26 ONCE ONE Protocol Discontinued Medications Generic Name Dose Route Start Last Admin Trade Name Freq PRN Reason Stop Dose Admin Acetaminophen/Codeine Phosphate 1 nahun 08/19/20 21:19 Acetaminophen 300mg W/Codeine 30mg Take Home Pack (6) PO 08/19/20 21:20 ONCE ONE Female Urogenital HPI - General Chief complaint: Skin/Abscess/Foreign Body Stated complaint: cyst on Vag Time Seen by Provider: 08/19/20 21:07 Mode of Arrival: Ambulatory Source of Information: Patient, Medical Record Limitations: No Limitations Description of Symptoms (Recalled from ER Triage Doc. by RN): pt stated she had a cyst on her vagina that appeared yeasterday and continued to grow in size and hurt more today. pt denies any fever/ chills or drainage from cyst at this time - History of Present Illness HPI Narrative: tender rt vaginal swelling with hx of bartholins - no fever or other c/o denied MD Complaint: other (labial cyst ) Onset (ago): day(s) Location: labia Severity: moderate : No Associated symptoms: denies other symptoms - Related Data Previous Rx's Medication Instructions Recorded Dicyclomine HCl [Bentyl 10mg 10 mg PO TID #15 cap 10/02/19 capsule] cyclobenzaprine 10 mg tablet 10 mg PO BID PRN #30 tab 10/15/19 Primidone [Mysoline 50mg tablet] 100 mg PO HS 30 Days #60 tab 03/01/20 Minocycline HCl [Minocycline HCl 100 mg PO BID #20 tab 08/19/20 100mg Tab*] Allergies Allergy/AdvReac Type Severity Reaction Status Date / Time azithromycin [From ZITHROMAX] Allergy Mild Verified 08/19/20 21:00 ciprofloxacin [From CIPRO] Allergy Mild Verified 08/19/20 21:00 Penicillins [PENICILLINS] Allergy Unknown Verified 08/19/20 21:00 [facility] History - Hepatitis A Screen Drug use history?: No High risk sexual behaviors?: No History of sexually transmitted infection?: No Currently employed?: No Childcare worker?: No Do you have indoor plumbing?: Yes Do you have electricity?: Yes Attestation statement:: This patient has been screened for Hepatitis A risk factors. I have reviewed the patient's past medical history: Yes Medical History: Reports:: Atherosclerotic Heart Disease, Depression, MRSA Denies:: Anxiety, Cancer, Diabetes Mellitus T
[2020-08-19 21:39] VITALS: BP 120/68; PULSE 82; RESP 14; TEMP 37.1; O2SAT 99
--- NOTE | 2020-08-20 09:47 | PC.NURSE ---
[facility] called stating antibiotics prescribed is not covered under insurance. meds changed to bactrim ds 1 tab bid x [address] myers
== END 2020-08-19 21:41 | disposition home or self-care (01) ==
PROVIDERS: Emergency Provider Emergency Medicine; PCP Nurse Practitioner Family
DX: N75.1 Abscess of Bartholin's gland (principal); F33.1 Major depressive disorder, recurrent, moderate; Z88.0 Allergy status to penicillin
CPT/HCPCS: 99281

== ENCOUNTER → 2020-08-26 11:56 | Outpatient (CLI) | payer OTHER, SELFPAY ==
[2020-08-26 12:43] LABS: Basophils # 0.1 K/mm3 (0-0.2); Basophils % 1.4 % (0.1-2.0); Eosinophils # 0.3 K/mm3 (0.0-0.4); Eosinophils % 2.9 % (0.1-12.0); Hematocrit 39.6 % (37.0-47.0); Hemoglobin 12.7 g/dL (12.2-16.2); Lymphocytes # 2.3 K/mm3 (0.7-4.5); Lymphocytes % 25.1 % (10-50); Mean Corpuscular HGB Conc 31.9 g/dL (31.8-35.4); Mean Corpuscular Hemoglobin 32.5 pg (27.0-31.2); Mean Corpuscular Volume 101.8 fl (81-99); Mean Platelet Volume 8.3 fl (7.4-10.4); Monocytes # 0.5 K/mm3 (0.1-1.0); Neutrophils # 5.8 K/mm3 (1.8-7.8); Neutrophils % 64.6 % (37.0-80.0); Platelet Count 345 K/mm3 (142-424); Red Blood Count 3.89 M/mm3 (4.20-5.40); Red Cell Distribution Width 12.9 % (11.5-17.5)
[2020-08-26 14:15] LABS: Chloride 106 mmol/L (98-107); Potassium 4.5 mmoL/L (3.5-5.1); Sodium 140 mmol/L (136-145)
[2020-08-26 14:17] LABS: Blood Urea Nitrogen 6 mg/dl (7-17); Estimated Glomerular Filt Rate 90 ml/min (>60); GFR (African American) 109 ML/MIN (>60)
[2020-08-26 14:18] LABS: Alanine Aminotransferase 21 U/L (12-78); Albumin Level 4.2 g/dl (3.5-5.0); Albumin/Globulin Ratio 1.4 (1.1-1.8); Alkaline Phosphatase 87 U/L (38-126); Anion Gap 9.5 mEq/L (5-15); Aspartate Amino Transferase 23 U/L (14-36); Bilirubin,Total 0.4 mg/dl (0.2-1.3); Calcium 9.6 mg/dl (8.4-10.2); Carbon Dioxide 29 mmol/L (22.0-30.0); Glucose 93 mg/dl (74-100); Total Protein,Serum 7.2 g/dl (6.3-8.2)
[2020-08-26 14:25] LABS: HCG Qualitative, Serum Negative (Negative)
[2020-08-26 15:11] LABS: Coronavirus 19 IgG Antibody Negative (Negative); Coronavirus 19 IgM Antibody Negative (Negative)
[2020-08-26 15:54] LABS: Barbiturates Screen,Urine Negative ng/ml (<200); Benzodiazepines Screen,Urine Negative ng/ml (<200)
[2020-08-26 15:55] LABS: Amphetamine/Metha Screen,Urine Negative ng/ml (<1000)
[2020-08-26 15:56] LABS: Cannabinoid Screen,Urine Negative ng/ml (<50); Methadone Screen,Urine Negative ng/ml (<300)
[2020-08-26 15:57] LABS: Cocaine Screen,Urine Negative ng/ml (<300)
[2020-08-26 15:58] LABS: Opiate Screen,Urine Positive ng/ml (<300); Phencyclidine Screen,Urine Negative ng/ml (<25)
== END ==
PROVIDERS: Visit Provider Obstetrics & Gynecology
DX: Z01.818 Encounter for other preprocedural examination (principal); N75.1 Abscess of Bartholin's gland
CPT/HCPCS: 36415; 80053; 80305; 84703; 85025; 86328

== ENCOUNTER 2020-08-28 10:34 | Day surgery (SDC) | payer OTHER, SELFPAY ==
[2020-08-26 11:10] VITALS: BMI 18.3
[2020-08-28 11:49] VITALS: BP 105/65; PULSE 63; RESP 18; TEMP 36.5; O2SAT 100
[2020-08-28 12:55] VITALS: BP 98/61; PULSE 77; RESP 18; TEMP 36.2; O2SAT 99
[2020-08-28 13:05] VITALS: BP 107/69; PULSE 76; RESP 18; O2SAT 99
--- NOTE | 2020-08-28 13:11 | HMH.ANESCL ---
[facility] Anesthesia Checklist - Patient Identification Patient Identification: Arm Band, Verbal (Name & ) - Structural Data Admitted From: Home Planned Operative Procedure/s: i and d Consent for Planned Operative Procedure(s) Verified: Yes Verified Documents: History and Physical - NPO Status Verified Time NPO: 00:00 - Chart Verification Results Verified: CBC, BMP - Additional verifications Patient : No Anesthesia Reactions: No Hx Blood Transfusions: No Blood Transfusion Reaction: No Cephalosporin Allergy: No Previous Colonoscopy: No - Cardiovascular Assessment Heart Sounds: S1 & S2 Pulse Strength: Baseline Pulse Rhythm: Regular Peripheral Edema: No - Airway Assessment C-Spine Mobility Assessed: Yes TMJ Mobility Assessed: Yes Dentition: Edentulous - Neurological Assessment Level of Consciousness: Awake, Alert, Appropriate Hx Seizures: No Numbness or tingling in extremities: No - Anesthesia Plan Anesthesia Risk discussed: Yes Anesthesia Plan: Verified ASA Class: II Anesthesia Type: MAC [facility] History I have reviewed the patient's past medical history: Yes Medical History: Reports:: Atherosclerotic Heart Disease, Depression Denies:: Anxiety, Cancer, Diabetes Mellitus Type 1, Diabetes Mellitus Type 2, Hypertension, Internal Pacemaker, MRSA, Seizures *Have you ever received a pneumonia vaccine?: No *Have you received a flu vaccine this season?: No Other Medical History: Reports: Anemia, Other. Denies: Blood Transfusion Reaction Anesthesia experience/problems:: none Laterality Cases: Bilateral: Myringotomy (Ear Tubes) Other Surgeries: Yes: No Previous Surgery, , Other. No: Pacemaker Amputation: No Fractures: No - *Social History Last grade of school completed: 9th or 10th Smoking Status: Current every day smoker Tobacco Type: cigarettes # Packs/Day (cigarettes): 1 Alcohol Intake: current Alcohol Intake Frequency:: holidays/special occasions only Substance Use Type: former substance user, crack/cocaine, amphetamines *Occupational Status:: employed Housing: apartment Household Members: none *Travel in the last 8 weeks: None - Psychiatric History Pschychiatric History:: Reports:: Depression Denies:: Anxiety Family Hx:: Cancer, Stroke, Hypertension, Other
[2020-08-28 13:15] VITALS: BP 97/64; PULSE 61; RESP 18; O2SAT 100
--- NOTE | 2020-08-28 13:23 | HMH.OPNOTE ---
Date of procedure: 08/28/20 Pre-op Diagnosis:: bartholin's gland cyst Post-op Diagnosis:: bartholin's gland abscess Procedure performed:: I & D Right bartholin's gland abscess Surgeon:: Kaci Gonzales MD SPEECH LANGUAGE PATHOLOGY ASSISTANT:: Taiwo Arnold Anesthesia: MAC Estimated blood loss (mL): 5 Operative findings:: 3 x 3cm right bartholin's gland abscess Operative note:: The patient was taken to the OR and anesthesia administered without difficulty or complication. She was prepped and draped in lithotomy position. The right bartholin's cyst was incised medially with a scalpel. Purlulent drainage was evacuated from the cyst and wound culture collected. The abscess cavity was explored with a hemostat and irrigated with hibiclense solution. The cavity was packed with 1/4 iodoform gauze. The patient tolerated the procedure well. She was awakened from anesthesia, and taken to the recovery room in stable condition. Condition: stable Disposition: PACU Specimens:: wound culture Complications:: none
[2020-08-28 13:35] VITALS: BP 103/71; PULSE 66; RESP 18; O2SAT 99
== END 2020-08-28 13:40 | disposition home or self-care (01) ==
PROVIDERS: PCP Nurse Practitioner Family; Visit Provider Obstetrics & Gynecology
PROC: (CPT 56420; principal; 2020-08-28 12:15)
DX: N75.1 Abscess of Bartholin's gland (principal); I25.10 Atherosclerotic heart disease of native coronary artery without angina pectoris; F32.9 Major depressive disorder, single episode, unspecified; D64.9 Anemia, unspecified; Z96.22 Myringotomy tube(s) status; Z72.0 Tobacco use; F14.11 Cocaine abuse, in remission; F15.11 Other stimulant abuse, in remission; Z82.3 Family history of stroke; Z82.49 Family history of ischemic heart disease and other diseases of the circulatory system; Z88.0 Allergy status to penicillin; Z88.1 Allergy status to other antibiotic agents
CPT/HCPCS: 56420; 87075; 87077; 87205; 96374; J2405

== ENCOUNTER 2020-11-13 00:48 | Emergency (ER) | payer OTHER, SELFPAY ==
[2020-11-13 00:46] VITALS: BP 106/65; PULSE 112; RESP 18; TEMP 36.3; O2SAT 98; BMI 18.8
[2020-11-13 01:00] VITALS: BP 100/68; PULSE 94; RESP 17; O2SAT 95
--- NOTE | 2020-11-13 01:06 | HMH.EDGENADL ---
ED Disposition Clinical Impression: Generalized seizure, Seizure disorder, Noncompliance with medication regimen, Hypokalemia Alcohol intoxication Qualifiers: Complication of substance-induced condition: uncomplicated Qualified Code(s): F10.920 - Alcohol use, unspecified with intoxication, uncomplicated Disposition: Home, Self-Care Condition on Discharge: Good Instructions: DI for Seizure Disorder -- Adult Additional Instructions: Continue primidone. Take as prescribed. Additional instructions for SEIZURE OR LOSS OF CONSCIOUSNESS/POSSIBLE SEIZURE: NO DRIVING, BIKE RIDING, SWIMMING, TUB BATHING, LADDERS UNTIL CLEARED BY DOCTOR. RETURN IF SEIZURE RECURS. NO ALCOHOL OR STREET DRUGS. See your physician as soon as possible for follow-up. Return to the emergency department if seizure recurs. Referrals: PCP,No [Primary Care Provider] - - Critical Care Critical Care Time: No Attestation: On 11/13/20, the high probability of a clinically significant, sudden or life threatening deterioration of the following system(s) required my full and direct attention, intervention and personal management. The time I documented below is in addition to time spent performing reported procedures but includes the following listed in this critical care notation. Medical Decision Making - Medical Records Medical records reviewed: Yes: I reviewed the patient's medical records. MR Comment: Reviewed multiple previous emergency department visits. No chronic anticonvulsants listed on any of her previous visits. ED visit 03/01/2020 for seizure indicates that she was started on Mysoline at that time. Her history at that time indicates that she had previously been on Keppra, which made her seizures worse. - Timmy Inquiry Pt receiving controlled substance: No Vital Signs: 11/13/20 00:46 11/13/20 01:00 11/13/20 01:30 Temperature 97.3 F L Temperature Source Oral Pulse Rate [Left Radial] 112 H 94 H 88 Respiratory Rate 18 17 17 Blood Pressure [Right Arm] 106/65 L 100/68 L 105/71 L Blood Pressure Mean [Right Arm] 78 78 82 Blood Pressure Source [Right Arm] Automatic Cuff Automatic Cuff Automatic Cuff Blood Pressure Position [Right Arm] Supine Supine Supine 02 Sat by Pulse Oximetry 98 95 99 Oxygen Delivery Method Room Air Room Air Room Air 11/13/20 02:00 Temperature Temperature Source Pulse Rate [Left Radial] 74 Respiratory Rate 17 Blood Pressure [Right Arm] 100/69 L Blood Pressure Mean [Right Arm] 79 Blood Pressure Source [Right Arm] Automatic Cuff Blood Pressure Position [Right Arm] Supine 02 Sat by Pulse Oximetry 99 Oxygen Delivery Method Room Air - Lab Data Lab Results 11/13/20 00:40: WBC 7.2, RBC 3.68 L, Hgb 11.5 L, Hct 36.1 L, MCV 97.9, MCH 31.2, MCHC 31.8, RDW 12.8, Plt Count 335, MPV 8.5, Neut % (Auto) 46.9, Lymph % (Auto) 44.2, [place] % (Auto) 5.8, Eos % (Auto) 1.9, Baso % (Auto) 1.2, Neut # (Auto) 3.4, Lymph # (Auto) 3.2, [place] # (Auto) 0.4, Eos # (Auto) 0.1, Baso # (Auto) 0.1 11/13/20 00:40: Sodium 146 H, Potassium 3.0 L, Chloride 112 H, Carbon Dioxide 25, Anion Gap 12.0, BUN 3 L, Creatinine 0.70, Estimated Creat Clear 99, Estimated GFR 105, Est GFR ( Amer) 127, Glucose 108 H, Calcium 9.4 11/13/20 00:40: Plasma/Serum Alcohol 190 H 11/13/20 00:40: Serum HCG, Qual Negative 11/13/20 03:04: Urine Color Yellow, Urine Appearance Clear, Urine pH 6.5, Ur Specific [place] 1.010, Urine Protein Negative, Urine Glucose (UA) Negative, Urine Ketones Negative, Urine Blood Negative, Urine Nitrate Negative, Urine Bilirubin Negative, Urine Urobilinogen 0.2, Ur Leukocyte Esterase Negative, Urine WBC Occasional, Urine Bacteria Trace Result diagrams: 11/13/20 00:40 11/13/20 00:40 Orders (Tests/Meds): ED MEDICATIONS Discontinued Medications Generic Name Dose Route Start Last Admin Trade Name Freq PRN Reason Stop Dose Admin Ondansetron HCl 4 mg 11/13/20 01:12 11/13/20 01:17 Ondansetron 4mg/2ml Vial IV 11/13/20
[2020-11-13 01:20] LABS: Basophils # 0.1 K/mm3 (0-0.2); Basophils % 1.2 % (0.1-2.0); Eosinophils # 0.1 K/mm3 (0.0-0.4); Eosinophils % 1.9 % (0.1-12.0); Hematocrit 36.1 % (37.0-47.0); Hemoglobin 11.5 g/dL (12.2-16.2); Lymphocytes # 3.2 K/mm3 (0.7-4.5); Lymphocytes % 44.2 % (10-50); Mean Corpuscular HGB Conc 31.8 g/dL (31.8-35.4); Mean Corpuscular Hemoglobin 31.2 pg (27.0-31.2); Mean Corpuscular Volume 97.9 fl (81-99); Mean Platelet Volume 8.5 fl (7.4-10.4); Monocytes # 0.4 K/mm3 (0.1-1.0); Monocytes % 5.8 % (1.7-9.3); Neutrophils # 3.4 K/mm3 (1.8-7.8); Neutrophils % 46.9 % (37.0-80.0); Platelet Count 335 K/mm3 (142-424); Red Blood Count 3.68 M/mm3 (4.20-5.40); Red Cell Distribution Width 12.8 % (11.5-17.5); White Blood Count 7.2 K/mm3 (4.8-10.8)
[2020-11-13 01:23] LABS: Ethyl Alcohol 190 mg/dl (0-10)
[2020-11-13 01:24] LABS: Blood Urea Nitrogen 3 mg/dl (7-17); Calcium 9.4 mg/dl (8.4-10.2); Carbon Dioxide 25 mmol/L (22.0-30.0); Chloride 112 mmol/L (98-107); Creatinine Clearance Estimated 99 mL/min (50-200); Estimated Glomerular Filt Rate 105 ml/min (>60); GFR (African American) 127 ML/MIN (>60); Glucose 108 mg/dl (74-100); Sodium 146 mmol/L (136-145)
[2020-11-13 01:30] VITALS: BP 105/71; PULSE 88; RESP 17; O2SAT 99
[2020-11-13 01:39] LABS: HCG Qualitative, Serum Negative (Negative)
[2020-11-13 02:00] VITALS: BP 100/69; PULSE 74; RESP 17; O2SAT 99
--- NOTE | 2020-11-13 02:24 | PC.NURSE ---
Pt was unable to get 1 tab of K+. aware. Pt received 20meq of K+.
--- NOTE | 2020-11-13 03:07 | PC.NURSE ---
pt ambulated to the bathroom with 1 assist from staff at this time
[2020-11-13 03:14] LABS: Microscopic, Urine URINE MICROSCOPIC (MICROSCOPIC)
[2020-11-13 03:15] LABS: Appearance,Urine CLEAR (Clear); Bilirubin,Urine Negative (Negative); Blood, Urine Negative (Negative); Color,Urine YELLOW (Yellow); Glucose,Urine (UA) Negative (Negative); Ketones,Urine Negative (Negative); Leukocyte Esterase,Urine Negative (Negative); Nitrate,Urine Negative (Negative); PH,Urine 6.5 (5.0-8.5); Protein,Urine Negative (Negative); Urobilinogen,Urine 0.2 EU/dl (0.2)
[2020-11-13 03:18] LABS: Bacteria,Urine Trace /lpf; WBC,Urine Occasional #/hpf (0-3)
[2020-11-13 03:27] LABS: Amphetamine/Metha Screen,Urine Negative ng/ml (<1000)
[2020-11-13 03:28] LABS: Barbiturates Screen,Urine Negative ng/ml (<200)
[2020-11-13 03:29] LABS: Benzodiazepines Screen,Urine Negative ng/ml (<200); Cannabinoid Screen,Urine Negative ng/ml (<50)
[2020-11-13 03:30] LABS: Cocaine Screen,Urine Negative ng/ml (<300)
[2020-11-13 03:31] LABS: Methadone Screen,Urine Negative ng/ml (<300); Opiate Screen,Urine Negative ng/ml (<300)
[2020-11-13 03:32] LABS: Phencyclidine Screen,Urine Negative ng/ml (<25)
[2020-11-13 03:44] VITALS: BP 97/58; PULSE 71; RESP 16; TEMP 36.6; O2SAT 97
== END 2020-11-13 03:46 | disposition home or self-care (01) ==
PROVIDERS: Emergency Provider Emergency Medicine
DX: G40.909 Epilepsy, unspecified, not intractable, without status epilepticus (principal); E87.6 Hypokalemia; F10.920 Alcohol use, unspecified with intoxication, uncomplicated; Z88.0 Allergy status to penicillin; F17.210 Nicotine dependence, cigarettes, uncomplicated; Z91.14 Patient's other noncompliance with medication regimen
CPT/HCPCS: 80048; 80305; 81001; 84703; 85025; 96365; 96375; 99283; J2405

== ENCOUNTER 2021-01-11 00:46 | Emergency (ER) | payer OTHER, SELFPAY ==
[2021-01-11 00:48] VITALS: BP 113/78; PULSE 86; RESP 17; TEMP 36.6; O2SAT 98; BMI 19.7
--- NOTE | 2021-01-11 01:01 | XR_ITS ---
PROCEDURE: XR HAND RT MIN 3V CLINICAL INDICATION: smashed index finger in door Pain COMPARISON: No exams were available for comparison FINDINGS: No fracture or dislocation. No lytic or blastic change. There is normal mineralization. The joint spaces are well-preserved. No significant degenerative/arthritic changes. No erosive changes evident. Other findings:None. IMPRESSION: No acute findings. Dictated by: Guero hSields MD 01/11/2021 05:43 Guero Shields MD in [place] 01/11/2021 05:43
--- NOTE | 2021-01-11 01:09 | HMH.EDGENADL ---
ED Disposition Clinical Impression: Finger contusion Qualifiers: Encounter type: initial encounter Finger: index finger Damage to nail status: without damage Laterality: right Qualified Code(s): S60.021A - Contusion of right index finger without damage to nail, initial encounter Disposition: Home, Self-Care Condition on Discharge: Fair Instructions: DI for Finger Fracture Additional Instructions: You have been evaluated for an injury to your right index finger. Does not appear to be a fracture or dislocation on x-rays. Please keep finger wrapped for support. Take Tylenol and ibuprofen. Follow-up with your primary care doctor. Return to the emergency department for any new or worsening symptoms. Referrals: Keena Dawkins [Primary Care Provider] - Time of Disposition: :29 - Critical Care Critical Care Time: No Attestation: On 01/11/21, the high probability of a clinically significant, sudden or life threatening deterioration of the following system(s) required my full and direct attention, intervention and personal management. The time I documented below is in addition to time spent performing reported procedures but includes the following listed in this critical care notation. Medical Decision Making - Medical Records Medical records reviewed: Yes: I reviewed the patient's medical records. - Timmy Inquiry Pt receiving controlled substance: No Vital Signs: 01/11/21 00:48 01/11/21 01:34 Temperature 97.8 F 98.2 F Temperature Source Oral Oral Pulse Rate 73 Pulse Rate [Right Brachial] 86 Respiratory Rate 17 18 Blood Pressure 121/58 L Blood Pressure [Right Arm] 113/78 Blood Pressure Mean [Right Arm] 89 Blood Pressure Source Automatic Cuff Blood Pressure Source [Right Arm] Automatic Cuff Blood Pressure Position Sitting Blood Pressure Position [Right Arm] Sitting 02 Sat by Pulse Oximetry 98 Oxygen Delivery Method Room Air Room Air Orders (Tests/Meds): ORDERS Category Date Time Status Hand XR right minimum 3 views [XR hand RT min 3V] Stat Exams 01/11/21 01:01 Taken - Radiology Data #1 Image(s): Hand Image Reviewed: Yes I reviewed the patient's radiology image Preliminary Findings: Normal/NAD No bony abnormality. Specifically no abnormality on the distal phalanx of the index finger of the right hand. No fracture. No dislocation Medical Decision Narrative: In summary this is a 25-year-old [id number] female presenting to the emergency department with an injury to her right index finger. Concern for fracture of the middle or distal phalanx. Will obtain x-rays. X-ray personally reviewed and interpreted. No evidence of tuft fracture or other bony abnormality. Patient updated. Placed into a pam tape for comfort. Instructed to follow-up with her PCP. Given return precautions. Stable for discharge. General Adult HPI - General Chief complaint: Extremity Injury, Upper Stated complaint: AO 01/11/21 00:30 Injury Right index finger Time Seen by Provider: 01/11/21 01:09 Mode of Arrival: Ambulatory Limitations: No Limitations Description of Symptoms (Recalled from ER Triage Doc. by RN): right index finger closed in truck door and smashed. obvious bruising. no open wound. vss. pt can flex/extend hand. - History of Present Illness HPI narrative: 25-year-old female presenting to the emergency department with an injury to her right index finger. Just prior to arrival she closed her hand in the door of her truck. Had immediate pain at the tip of her right index finger. Pain radiates into her hand. She has difficulty bending her finger. Flexion is worse than extension. No breaks in the skin. Slight throbbing at her fingernail. No significant bruising under the nail. No breaks in the skin. No other injuries obtained. She is right-handed. Has not taken any medication for pain. - Related Data Home Medications Medication Instructions Recorded Confirmed No Know
[2021-01-11 01:34] VITALS: BP 121/58; PULSE 73; RESP 18; TEMP 36.8; O2SAT 98
== END 2021-01-11 01:40 | disposition home or self-care (01) ==
PROVIDERS: Emergency Provider Emergency Medicine; PCP Nurse Practitioner Family
DX: S60.021A Contusion of right index finger without damage to nail, initial encounter (principal); V59.3XXA Occupant (driver) (passenger) of pick-up truck or van injured in unspecified nontraffic accident, initial encounter; F17.210 Nicotine dependence, cigarettes, uncomplicated; Z88.0 Allergy status to penicillin
CPT/HCPCS: 73130; 99282

== ENCOUNTER 2021-02-28 22:48 | Emergency (ER) | payer OTHER, SELFPAY ==
[2021-02-28 23:22] VITALS: BP 118/75; PULSE 80; RESP 16; O2SAT 100; BMI 19.2
[2021-02-28 23:43] LABS: Basophils # 0.1 K/mm3 (0-0.2); Basophils % 0.9 % (0.1-2.0); Eosinophils # 0.3 K/mm3 (0.0-0.4); Eosinophils % 2.4 % (0.1-12.0); Hematocrit 37.9 % (37.0-47.0); Hemoglobin 12.7 g/dL (12.2-16.2); Lymphocytes # 3.7 K/mm3 (0.7-4.5); Lymphocytes % 33.5 % (10-50); Mean Corpuscular HGB Conc 33.5 g/dL (31.8-35.4); Mean Corpuscular Volume 95.5 fl (81-99); Mean Platelet Volume 8.3 fl (7.4-10.4); Monocytes # 0.7 K/mm3 (0.1-1.0); Monocytes % 6.3 % (1.7-9.3); Neutrophils # 6.3 K/mm3 (1.8-7.8); Neutrophils % 56.9 % (37.0-80.0); Platelet Count 319 K/mm3 (142-424); Red Blood Count 3.97 M/mm3 (4.20-5.40); White Blood Count 11.1 K/mm3 (4.8-10.8)
[2021-02-28 23:48] LABS: HCG Qualitative, Serum Negative (Negative)
[2021-02-28 23:50] LABS: Alanine Aminotransferase 40 U/L (12-78); Albumin Level 4.7 g/dl (3.5-5.0); Albumin/Globulin Ratio 1.6 (1.1-1.8); Alkaline Phosphatase 84 U/L (38-126); Anion Gap 10.5 mEq/L (5-15); Aspartate Amino Transferase 39 U/L (14-36); Bilirubin,Total 0.2 mg/dl (0.2-1.3); Blood Urea Nitrogen 8 mg/dl (7-17); Calcium 9.4 mg/dl (8.4-10.2); Carbon Dioxide 26 mmol/L (22.0-30.0); Chloride 106 mmol/L (98-107); Creatinine Clearance Estimated 100 mL/min (50-200); Estimated Glomerular Filt Rate 104 ml/min (>60); GFR (African American) 125 ML/MIN (>60); Glucose 99 mg/dl (74-100); Potassium 3.5 mmoL/L (3.5-5.1); Sodium 139 mmol/L (136-145); Total Protein,Serum 7.7 g/dl (6.3-8.2)
[2021-03-01 00:07] LABS: Erythrocyte Sedimentation Rate 20 mm/hr (0-20)
[2021-03-01 00:08] LABS: Procalcitonin < 0.030 ng/mL (0.0-2.0)
--- NOTE | 2021-03-01 00:38 | HMH.EDSKAF ---
ED Disposition Clinical Impression: Ecchymosis, History of ITP Disposition: Home, Self-Care Condition on Discharge: Good Instructions: DI for Immune Thrombocytopenic Purpura Additional Instructions: call pcp and dr walton in am and use meds and see ed if needed Prescriptions: predniSONE [Prednisone 20mg Tab] 20 mg PO BID #10 tab Transmission Status: Pending to [id number] Referrals: Keena Dawkins [Primary Care Provider] - Ana Walton MD [Staff Physician] - - Critical Care Critical Care Time: No Attestation: On 02/28/21, the high probability of a clinically significant, sudden or life threatening deterioration of the following system(s) required my full and direct attention, intervention and personal management. The time I documented below is in addition to time spent performing reported procedures but includes the following listed in this critical care notation. Medical Decision Making - Medical Records Medical records reviewed: Yes: I reviewed the patient's medical records. - Timmy Inquiry Pt receiving controlled substance: No Vital Signs: 02/28/21 23:22 Pulse Rate [Right] 80 Respiratory Rate 16 Blood Pressure [Right Arm] 118/75 Blood Pressure Mean [Right Arm] 89 Blood Pressure Source [Right Arm] Automatic Cuff Blood Pressure Position [Right Arm] Sitting 02 Sat by Pulse Oximetry 100 Oxygen Delivery Method Room Air - Lab Data Lab results reviewed: Yes: I reviewed the patient's lab results. Lab Results 02/28/21 23:10: WBC 11.1 H, RBC 3.97 L, Hgb 12.7, Hct 37.9, MCV 95.5, MCH 32.0 H, MCHC 33.5, RDW 14.0, Plt Count 319, MPV 8.3, Neut % (Auto) 56.9, Lymph % (Auto) 33.5, [place] % (Auto) 6.3, Eos % (Auto) 2.4, Baso % (Auto) 0.9, Neut # (Auto) 6.3, Lymph # (Auto) 3.7, [place] # (Auto) 0.7, Eos # (Auto) 0.3, Baso # (Auto) 0.1, ESR 20 02/28/21 23:10: Sodium 139, Potassium 3.5, Chloride 106, Carbon Dioxide 26, Anion Gap 10.5, BUN 8, Creatinine 0.70, Estimated Creat Clear 100, Estimated GFR 104, Est GFR ( Amer) 125, Glucose 99, Calcium 9.4, Total Bilirubin 0.2, AST 39 H, ALT 40, Alkaline Phosphatase 84, Total Protein 7.7, Albumin 4.7, Globulin 3.0, Albumin/Globulin Ratio 1.6, Procalcitonin < 0.030 02/28/21 23:10: Serum HCG, Qual Negative Result diagrams: 02/28/21 23:10 02/28/21 23:10 Orders (Tests/Meds): ED MEDICATIONS Generic Name Dose Route Start Last Admin Trade Name Freq PRN Reason Stop Dose Admin Sodium Chloride 1,000 mls @ 999 mls/hr 02/28/21 23:45 Sod Chlor 0.9% 1000ml Bag IV 03/01/21 00:45 .Q1H1M JAVIER ORDERS Category Date Time Status XR chest 2V Stat Exams 03/01/21 23:34 Taken Medical Decision Narrative: hx of itp and has bruising but plt ok at this time will give steroids and ask pt to call dr walton and pcp Skin/Abscess/FB HPI - General Chief complaint: Skin/Abscess/Foreign Body Stated complaint: blood clot in r leg Time Seen by Provider: 03/01/21 00:00 Mode of Arrival: Ambulatory Source of Information: Patient, Medical Record Limitations: No Limitations Description of Symptoms (Recalled from ER Triage Doc. 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 Pt has a large Hematoma erupt on her right upper thigh today. - History of Present Illness HPI narrative: pt had case of itp a few yrs ago and was doing ok but has noted bruising and tender area rt thigh w/o bleeding - no fever or viral illness and no iv drugs complaint: discoloration Onset (ago): day(s) Tetanus up to date: unsure Location: R[facility] Severity: moderate Associated symptoms: denies other symptoms Treatments prior to arrival: none - Related Data Previous Rx's Medication Instructions Recorded predniSONE [Prednisone 20mg 20 mg PO BID #10 tab 03/01/21 Tab] Allergies Allergy/AdvReac Type Severity Reaction Status Date / Time azithromycin [From ZITHROMAX] Allergy Mild Verified 08/31/20 14:55 ciproflox
[2021-03-01 00:57] VITALS: BP 120/66; PULSE 76; RESP 16; TEMP 36.4; O2SAT 99
[2021-03-01 01:31] LABS: INR 0.95 (0.9-1.1); Prothrombin Time 11.3 seconds (10.1-12.5)
[2021-03-01 01:32] LABS: Activated Partial Thrombo Time 28.4 seconds (22.8-30.6)
--- NOTE | 2021-03-01 23:34 | XR_ITS ---
PROCEDURE: XR CHEST 2V CLINICAL HISTORY: Spontanious bruising Smoker COMPARISON: CR CXR CHEST(2 VIEWS-NOT PORTABLE) from 11/11/2009 CR XR CHEST 2V from 03/01/2020 FINDINGS: The cardiomediastinal silhouette and pulmonary vascularity are within normal limits. The lungs are clear without infiltrates, suspicious nodules, or pleural effusions. No acute bony abnormalities. IMPRESSION: No acute findings. Dictated by: Guero Shields MD 03/01/2021 05:33 Guero Shields MD in [place] 03/01/2021 05:33
== END 2021-03-01 00:59 | disposition home or self-care (01) ==
PROVIDERS: Emergency Provider Emergency Medicine; PCP Nurse Practitioner Family
DX: R23.3 Spontaneous ecchymoses (principal); D69.3 Immune thrombocytopenic purpura; F17.210 Nicotine dependence, cigarettes, uncomplicated; Z88.0 Allergy status to penicillin
CPT/HCPCS: 71046; 80053; 84145; 84703; 85025; 85610; 85651; 85730; 96365; 96375; 99282

== ENCOUNTER 2021-06-04 13:43 | Emergency (ER) | payer OTHER, SELFPAY ==
[2021-06-04 14:06] VITALS: BP 125/71; PULSE 98; RESP 16; TEMP 37.4; O2SAT 98; BMI 20.5
--- NOTE | 2021-06-04 14:36 | HMH.EDUTC ---
[facility] Disposition Clinical Impression: Viral syndrome Disposition: Home, Self-Care Condition on Discharge: Good Instructions: Diarrhea, DI for Viral Syndrome, DI for COVID-19 (Suspected or Confirmed ), Preventing the Spread of Coronavirus Discharge Instructions Additional Instructions: Drink extra fluids with and between meals. If you have difficulty drinking, try very small amounts of water or suck on ice chips. ? Avoid fruit juices, as these do not replace minerals and can actually increase diarrhea. ? Children and adults can use sports drinks to replenish electrolytes. Younger children and infants should use products formulated for children, like oral rehydration solutions. ? Eat food in small amounts and let your stomach recover. ? Get lots of rest. You may feel tired or weak. ? No greasy or fried foods for the next 24-48 hours BRAT diet Bananas Rice Apples and [place] ? Make sure to drink plenty of liquids ? Return if needed ? Straight to ER if any life threatening symptoms ? Zofran as prescribed ? Follow up with family doctor in the next 48-72 hours if no improvement or any worsening of symptoms Referrals: Keena Dawkins [Primary Care Provider] - As needed Forms: Work/School Release Time of Disposition: 15:13 Medical Decision Making - Timmy Inquiry Pt receiving controlled substance: No Timmy was queried for this patient: No Vital Signs: 06/04/21 14:06 Temperature 99.3 F Temperature Source Oral Pulse Rate [Right] 98 H Respiratory Rate 16 Blood Pressure [Right Arm] 125/71 Blood Pressure Mean [Right Arm] 89 Blood Pressure Source [Right Arm] Automatic Cuff Blood Pressure Position [Right Arm] Sitting 02 Sat by Pulse Oximetry 98 Oxygen Delivery Method Room Air - Lab Data Lab results reviewed: Yes: I reviewed the patient's lab results. Lab Results 06/04/21 15:04: Strep Scn Rapid Clinic Negative Orders (Tests/Meds): ORDERS Category Date Time Status Covid-19 Nasal PCR ([facility]) Routine Lab 06/04/21 14:00 Received Strep Screen Confirmation Stat Micro 06/04/21 15:04 Received [facility] HPI - General Stated complaint: cold chills, nausea, soa Time Seen by Provider: 06/04/21 14:36 Mode of Arrival: Ambulatory Source of Information: Patient Limitations: No Limitations Description of Symptoms (Recalled from Triage Doc. by RN): pt c/o feeling sick for the past day with chills, diarrhea, headaches and feeling very fatigued HEENT Symptoms (Recalled from RN notes): No Resp Symptoms (Recalled from RN notes): No Skin Symptoms (Recalled from RN notes): No MS Symptoms (Recalled from RN notes): No Functional Status (Recalled from RN notes): na - History of Present Illness Provider Complaint: Patient states that she has not felt well for several days States that she has been having fever, chills, body aches, scratchy throat, headache diarrhea and fatigue States that she hasnt felt well for several days and today she was still feeling bad so she came in to get checked Denies known exposure to COVID - Related Data Home Medications Medication Instructions Recorded Confirmed escitalopram oxalate 20 mg tablet 20 mg PO DAILY 05/21/21 Previous Rx's Medication Instructions Recorded fluconazole 150 mg tablet 150 mg PO Q3D 0 Days #2 tab 05/21/21 vits no.126-ferrous fum 126 tab PO DAILY #90 tab 05/21/21 28 mg iron-folic acid 800 mcg tablet sulfamethoxazole 800 1 tab PO BID #14 tab 05/21/21 mg-trimethoprim 160 mg tablet Allergies Allergy/AdvReac Type Severity Reaction Status Date / Time azithromycin [From ZITHROMAX] Allergy Mild Verified 05/21/21 14:59 ciprofloxacin [From CIPRO] Allergy Mild Verified 05/21/21 14:59 Penicillins [PENICILLINS] Allergy Unknown Verified 05/21/21 14:59 - Worker's Comp Is this a Worker's Comp case?: No H History - Hepatitis A Screen Drug use history?: No High risk sexual behaviors?: No History of sexually transmitted infection?: No Currently em
[2021-06-04 15:10] LABS: UTC Strep Screen (Rapid) Negative (Negative)
[2021-06-04 15:14] VITALS: BP 124/68; PULSE 80; RESP 16; TEMP 37.2; O2SAT 98
== END 2021-06-04 15:26 | disposition home or self-care (01) ==
PROVIDERS: Emergency Provider Nurse Practitioner; PCP Nurse Practitioner Family
DX: B34.9 Viral infection, unspecified (principal); Z20.822 Contact with and (suspected) exposure to COVID-19; F33.1 Major depressive disorder, recurrent, moderate; F17.210 Nicotine dependence, cigarettes, uncomplicated; Z88.0 Allergy status to penicillin
CPT/HCPCS: 87880; 99203; G0463; U0003

== ENCOUNTER 2021-06-11 20:00 | Emergency (ER) | payer OTHER, SELFPAY ==
--- NOTE | 2021-06-11 20:11 | HMH.EDGENADL ---
ED Disposition Clinical Impression: Seizure, Elevated lactic acid level, Stress Disposition: Home, Self-Care Condition on Discharge: Fair Instructions: DI for Seizure Disorder -- Adult, Seizure Safety Precautions-Adult Additional Instructions: You have been evaluated for seizures. Please do not drive. Avoid situations where sudden loss of consciousness can be dangerous or deadly. Please follow-up with your primary care doctor as soon as available. Follow-up with neurology, Dr. Gregg or another neurologist to specializes in epilepsy. Avoid changes in sleep, diet, stress. Return to the emergency department at once for any new or worsening symptoms. Referrals: Provider,MD Nika [Primary Care Provider] - Gill Gregg MD [Staff Physician] - Time of Disposition: 22:20 - Critical Care Critical Care Time: No Attestation: On , the high probability of a clinically significant, sudden or life threatening deterioration of the following system(s) required my full and direct attention, intervention and personal management. The time I documented below is in addition to time spent performing reported procedures but includes the following listed in this critical care notation. Medical Decision Making - Medical Records Medical records reviewed: Yes: I reviewed the patient's medical records. - Timmy Inquiry Pt receiving controlled substance: No - Lab Data Lab Results 06/11/21 20:01: WBC 9.3, RBC 3.81 L, Hgb 12.2, Hct 37.1, MCV 97.4, MCH 31.9 H, MCHC 32.8, RDW 13.7, Plt Count 293, MPV 8.7, Neut % (Auto) 67.4, Lymph % (Auto) 22.8, Tucker % (Auto) 7.5, Eos % (Auto) 1.5, Baso % (Auto) 0.7, Neut # (Auto) 6.3, Lymph # (Auto) 2.1, Tucker # (Auto) 0.7, Eos # (Auto) 0.1, Baso # (Auto) 0.1 06/11/21 20:01: Sodium 142, Potassium 3.4 L, Chloride 108 H, Carbon Dioxide 19 L, Anion Gap 18.4 H, BUN 9, Creatinine 0.80, Estimated GFR 89, Est GFR ( Amer) 108, Glucose 99, Calcium 9.0, Total Bilirubin 0.3, AST 31, ALT 26, Alkaline Phosphatase 71, Total Creatine Kinase 99, Total Protein 7.5, Albumin 4.4, Globulin 3.1, Albumin/Globulin Ratio 1.4, HCG, Quant < 2 06/11/21 20:01: Lactate 6.5 H 06/11/21 20:01: Plasma/Serum Alcohol < 10 06/11/21 20:30: Urine HCG, Qual Negative 06/11/21 20:42: Urine Color Straw, Urine Appearance Clear, Urine pH 6.5, Ur Specific [place] <= 1.005, Urine Protein Negative, Urine Glucose (UA) Negative, Urine Ketones Negative, Urine Blood Negative, Urine Nitrate Negative, Urine Bilirubin Negative, Urine Urobilinogen 0.2, Ur Leukocyte Esterase 1+ A, Urine WBC 3-5, Ur Squamous Epith Cells 5-10, Urine Bacteria 2+ 06/11/21 20:42: Urine Opiates Screen Negative, Urine Methadone Screen Negative, Ur Barbituates Screen Negative, Ur Phencyclidine Scrn Negative, Ur Amphetamines Screen Negative, U Benzodiazepines Scrn Negative, Urine Cocaine Screen Negative, U Marijuana (THC) Screen Negative Result diagrams: 06/11/21 20:01 06/11/21 20:01 Orders (Tests/Meds): ED MEDICATIONS Generic Name Dose Route Start Last Admin Trade Name Freq PRN Reason Stop Dose Admin Sodium Chloride 1,000 mls @ 999 mls/hr 06/11/21 20:15 06/11/21 20:00 Sod Chlor 0.9% 1000ml Bag IV 06/11/21 21:15 999 mls/hr .Q1H1M JAVIER Administration Sodium Chloride 1,000 mls @ 999 mls/hr 06/11/21 20:45 06/11/21 20:39 Sod Chlor 0.9% 1000ml Bag IV 06/11/21 21:45 999 mls/hr .Q1H1M JAVIER Administration Sodium Chloride 10 ml 06/11/21 20:11 Sodium Chloride 0.9% 10ml Vial IV 07/11/21 20:10 NEEDED PRN to Dilute Lorazepam inj Discontinued Medications Generic Name Dose Route Start Last Admin Trade Name Freq PRN Reason Stop Dose Admin Lorazepam 1 mg 06/11/21 20:11 06/11/21 20:42 Lorazepam 2mg/Ml Vial IV 06/11/21 20:12 1 mg ONCE ONE Administration ORDERS Category Date Time Status CT head/brain wo con Stat Cat Scan 06/11/21 20:08 Ordered XR chest portable Stat Exams 06/11/21 20:07 Ordered Urine Culture Stat Micro 06/11/21
[2021-06-11 20:14] LABS: Basophils # 0.1 K/mm3 (0-0.2); Basophils % 0.7 % (0.1-2.0); Eosinophils # 0.1 K/mm3 (0.0-0.4); Eosinophils % 1.5 % (0.1-12.0); Hematocrit 37.1 % (37.0-47.0); Hemoglobin 12.2 g/dL (12.2-16.2); Lymphocytes # 2.1 K/mm3 (0.7-4.5); Lymphocytes % 22.8 % (10-50); Mean Corpuscular HGB Conc 32.8 g/dL (31.8-35.4); Mean Corpuscular Hemoglobin 31.9 pg (27.0-31.2); Mean Corpuscular Volume 97.4 fl (81-99); Mean Platelet Volume 8.7 fl (7.4-10.4); Monocytes # 0.7 K/mm3 (0.1-1.0); Monocytes % 7.5 % (1.7-9.3); Neutrophils # 6.3 K/mm3 (1.8-7.8); Neutrophils % 67.4 % (37.0-80.0); Platelet Count 293 K/mm3 (142-424); Red Blood Count 3.81 M/mm3 (4.20-5.40); Red Cell Distribution Width 13.7 % (11.5-17.5); White Blood Count 9.3 K/mm3 (4.8-10.8)
--- NOTE | 2021-06-11 20:14 | ECG_ITS ---
APPROVED REPORT Exam: Resting ECG HR:98 bpm ECG Measurements Heart Rate 98 AXES TN 132 P 76 QRSd 86 QRS 66 QT 362 T 72 QTc 462 Conclusion Normal sinus rhythm Normal ECG Electronically signed by : Taiwo Ching, 06/13/2021 21:01:46
[2021-06-11 20:24] LABS: Alanine Aminotransferase 26 U/L (12-78); Albumin Level 4.4 g/dl (3.5-5.0); Albumin/Globulin Ratio 1.4 (1.1-1.8); Alkaline Phosphatase 71 U/L (38-126); Anion Gap 18.4 mEq/L (5-15); Aspartate Amino Transferase 31 U/L (14-36); Bilirubin,Total 0.3 mg/dl (0.2-1.3); Blood Urea Nitrogen 9 mg/dl (7-17); Carbon Dioxide 19 mmol/L (22.0-30.0); Chloride 108 mmol/L (98-107); Creatine Kinase 99 U/L (30-135); Estimated Glomerular Filt Rate 89 ml/min (>60); GFR (African American) 108 ML/MIN (>60); Globulin 3.1 g/dL (1.3-3.2); Glucose 99 mg/dl (74-100); Potassium 3.4 mmoL/L (3.5-5.1); Sodium 142 mmol/L (136-145); Total Protein,Serum 7.5 g/dl (6.3-8.2)
[2021-06-11 20:26] LABS: Ethyl Alcohol < 10 mg/dl (0-10); Lactic Acid 6.5 mmol/L (0.7-2.1)
--- NOTE | 2021-06-11 20:28 | PC.NURSE ---
Lactic acid 6.5 Dr. Choudhury aware
[2021-06-11 20:36] VITALS: BMI 21.4
[2021-06-11 20:42] LABS: HCG,Quantitative < 2 mIU/ml (0-5.42)
[2021-06-11 20:44] LABS: Microscopic, Urine URINE MICROSCOPIC (MICROSCOPIC)
[2021-06-11 20:46] LABS: Appearance,Urine CLEAR (Clear); Bilirubin,Urine Negative (Negative); Blood, Urine Negative (Negative); Color,Urine STRAW (Yellow); Glucose,Urine (UA) Negative (Negative); Ketones,Urine Negative (Negative); Leukocyte Esterase,Urine 1+ (Negative); Nitrate,Urine Negative (Negative); PH,Urine 6.5 (5.0-8.5); Protein,Urine Negative (Negative); Specific Gravity, Urine <= 1.005 (1.005-1.030); Urobilinogen,Urine 0.2 EU/dl (0.2)
[2021-06-11 20:53] LABS: Bacteria,Urine 2+ /lpf
[2021-06-11 20:58] LABS: Barbiturates Screen,Urine Negative ng/ml (<200); Benzodiazepines Screen,Urine Negative ng/ml (<200)
[2021-06-11 20:59] LABS: Amphetamine/Metha Screen,Urine Negative ng/ml (<1000); Cannabinoid Screen,Urine Negative ng/ml (<50)
[2021-06-11 21:00] VITALS: BP 124/76; PULSE 103; RESP 24; O2SAT 98
[2021-06-11 21:00] LABS: Cocaine Screen,Urine Negative ng/ml (<300)
[2021-06-11 21:01] LABS: Methadone Screen,Urine Negative ng/ml (<300); Opiate Screen,Urine Negative ng/ml (<300)
[2021-06-11 21:02] LABS: Phencyclidine Screen,Urine Negative ng/ml (<25)
[2021-06-11 21:03] LABS: Urine Pregnancy, HCG Qual. Negative (Negative)
[2021-06-11 21:30] VITALS: BP 130/78; PULSE 103; RESP 23; O2SAT 99
--- NOTE | 2021-06-11 21:46 | PC.NURSE ---
PT AMBULATED TO BATHROOM, SLIGHTLY UNSTEADY. STAFF AT BEDSIDE TO ASSIST. VSS. ALERT, ORIENTED, INTERACTIVE.
--- NOTE | 2021-06-11 22:42 | PC.NURSE ---
pt refused to have ct head done. pt states that the scan will cause her to have a panic attack. notified
[2021-06-11 23:05] VITALS: BP 125/75; PULSE 84; RESP 15; TEMP 37.2; O2SAT 98
== END 2021-06-11 23:07 | disposition home or self-care (01) ==
PROVIDERS: Emergency Provider Emergency Medicine
DX: G40.909 Epilepsy, unspecified, not intractable, without status epilepticus (principal); F43.9 Reaction to severe stress, unspecified; Z88.0 Allergy status to penicillin; F17.210 Nicotine dependence, cigarettes, uncomplicated
CPT/HCPCS: 80053; 80305; 81001; 81025; 82550; 83605; 84702; 85025; 87086; 93005; 96365; 96366; 96375; 99282

== ENCOUNTER → 2021-06-23 10:01 | Outpatient (CLI) | payer OTHER, SELFPAY ==
[2021-06-23 10:36] LABS: Basophils # 0.1 K/mm3 (0-0.2); Basophils % 0.7 % (0.1-2.0); Eosinophils # 0.2 K/mm3 (0.0-0.4); Eosinophils % 1.8 % (0.1-12.0); Hematocrit 37.8 % (37.0-47.0); Hemoglobin 12.6 g/dL (12.2-16.2); Lymphocytes # 1.9 K/mm3 (0.7-4.5); Lymphocytes % 18.3 % (10-50); Mean Corpuscular HGB Conc 33.3 g/dL (31.8-35.4); Mean Corpuscular Hemoglobin 31.4 pg (27.0-31.2); Mean Corpuscular Volume 94.2 fl (81-99); Mean Platelet Volume 8.6 fl (7.4-10.4); Monocytes # 0.6 K/mm3 (0.1-1.0); Monocytes % 5.7 % (1.7-9.3); Neutrophils # 7.5 K/mm3 (1.8-7.8); Neutrophils % 73.6 % (37.0-80.0); Platelet Count 336 K/mm3 (142-424); Red Blood Count 4.02 M/mm3 (4.20-5.40); Red Cell Distribution Width 13.6 % (11.5-17.5); White Blood Count 10.1 K/mm3 (4.8-10.8)
[2021-06-23 10:47] LABS: Urine Pregnancy, HCG Qual. Negative (Negative)
[2021-06-23 11:07] LABS: Chloride 108 mmol/L (98-107); Potassium 4.2 mmoL/L (3.5-5.1); Sodium 142 mmol/L (136-145)
[2021-06-23 11:09] LABS: Alanine Aminotransferase 14 U/L (12-78); Alkaline Phosphatase 79 U/L (38-126); Aspartate Amino Transferase 20 U/L (14-36); Bilirubin,Total 0.4 mg/dl (0.2-1.3); Blood Urea Nitrogen 4 mg/dl (7-17); Estimated Glomerular Filt Rate 104 ml/min (>60); GFR (African American) 125 ML/MIN (>60)
[2021-06-23 11:10] LABS: Albumin Level 4.3 g/dl (3.5-5.0); Albumin/Globulin Ratio 1.4 (1.1-1.8); Anion Gap 12.2 mEq/L (5-15); Calcium 9.3 mg/dl (8.4-10.2); Carbon Dioxide 26 mmol/L (22.0-30.0); Glucose 67 mg/dl (74-100); Total Protein,Serum 7.3 g/dl (6.3-8.2)
== END ==
PROVIDERS: Visit Provider Obstetrics & Gynecology
DX: Z01.812 Encounter for preprocedural laboratory examination (principal); Z11.52 Encounter for screening for COVID-19; N75.0 Cyst of Bartholin's gland
CPT/HCPCS: 36415; 80053; 81025; 85025; U0003

== ENCOUNTER 2021-06-25 09:52 | Day surgery (SDC) | payer OTHER, SELFPAY ==
[2021-06-25] VITALS (10 sets, daily range): BP systolic 100–117; BP diastolic 53–67; PULSE 67–84; RESP 16–18; TEMP 36.3–36.6; O2SAT 97–99; BMI 19.7
--- NOTE | 2021-06-25 11:29 | HMH.ANESCL ---
[facility] Anesthesia Checklist - Patient Identification Patient Identification: Arm Band - Structural Data Admitted From: Home Planned Operative Procedure/s: I&D Bartholin Cyst Consent for Planned Operative Procedure(s) Verified: Yes Verified Documents: Surgical Consent, History and Physical - NPO Status Verified Time NPO: 00:00 - Additional verifications Anesthesia Reactions: No Hx Blood Transfusions: No Blood Transfusion Reaction: No - Airway Assessment C-Spine Mobility Assessed: Yes (mp2) TMJ Mobility Assessed: Yes Dentition: Edentulous - Neurological Assessment Level of Consciousness: Awake, Alert - Anesthesia Plan Anesthesia Risk discussed: Yes Anesthesia Plan: Verified ASA Class: II Anesthesia Type: General [facility] History Medical History: Reports:: Atherosclerotic Heart Disease, Depression, Seizures (3 weeks) Denies:: Anxiety, Cancer, Diabetes Mellitus Type 1, Diabetes Mellitus Type 2, Hypertension, Internal Pacemaker, MRSA *Have you ever received a pneumonia vaccine?: No *Have you received a flu vaccine this season?: Yes Other Medical History: Reports: Anemia, Other. Denies: Blood Transfusion Reaction Anesthesia experience/problems:: nac Laterality Cases: Bilateral: Myringotomy (Ear Tubes) Other Surgeries: Yes: , Other. No: Pacemaker Amputation: No Fractures: No - *Social History Smoking Status: Current every day smoker Tobacco Type: cigarettes # Packs/Day (cigarettes): 1 Alcohol Intake: never Alcohol Intake Frequency:: holidays/special occasions only Substance Use Type: former substance user, crack/cocaine, amphetamines *Occupational Status:: unemployed Housing: house Household Members: family, none *Travel in the last 8 weeks: None - Psychiatric History Pschychiatric History:: Reports:: Depression Denies:: Anxiety Family Hx:: No significant family history
--- NOTE | 2021-06-25 12:25 | HMH.ANESI ---
[facility] Anesthesia Record Part I Intake, IV Amount: 1,000 Estimated blood loss (mL): 10 Urine output (mL): 75 Blood Pressure: 117/61 SaO2: 98 Pulse Rate: 72 Respiratory Rate: 16 Temperature: 97.8 F Patient is:: Drowsy, Stable Stable to PACU at:: 12:20
--- NOTE | 2021-06-25 13:07 | P.OP_ITS ---
Date of procedure: 06/25/21 Pre-op Diagnosis:: right bartholin's abscess Post-op Diagnosis:: same Procedure performed:: I&D Bartholin's abscess Marsupialization of bartholin's gland cyst wall Surgeon:: Kaci Gonzales MD FINISHING MACHINE OPERATOR AUTOMATIC:: Jose Johnson Anesthesia: GETA Estimated blood loss (mL): 15 Operative findings:: 6x4cm bartholin's gland abscess copious purulent drainage from abscess Operative note:: The patient was taken to the operating room and general anesthesia administered. She was prepped and draped in lithotomy position. A large bartholin's gland cyst was noted on patient right, measuring 6x4cm. 5cc lidocaine 1% with epinephrine was injected into the cyst wall for postop pain relief. The vaginal mucosa over the cyst wall was incised vertically. Copious purulent drainage was noted from the cyst wall and a wound culture was obtained. The cyst wall was sutured with 2-0 vicryl to the skin of the introitus laterally and to the vaginal mucosa medially, in a running fashion. The cyst cavity was packed with 1/4 inch iodoform gauze. The patient was taken out of lithotomy position, awakened from anesthesia and taken to the recovery room awake and in stable condition. Condition: stable Disposition: PACU Specimens:: wound culture Complications:: none
--- NOTE | 2021-06-25 14:00 | HMH.ANESII ---
[facility] Anesthesia Record Part II Discharge Time: 12:50 Destination: Surgical Day Care (OP Surgery) PACU nurse assessment reviewed?: Yes Patient Condition:: Good Anesthesia Complications:: None Swallowing reflex intact?: Yes Cyanosis?: No Blood Pressure: 100/53 Pulse Rate: 67 Temperature: 97.7 F Mental Status: Alert & Oriented Pain level:: 0 Nausea and/or vomitting:: None Intake, IV Amount: 0
== END 2021-06-25 13:21 | disposition home or self-care (01) ==
LOC: OR 09:55
PROVIDERS: PCP Nurse Practitioner Family; Visit Provider Obstetrics & Gynecology
PROC: (CPT 56440; principal; 2021-06-25 11:15)
DX: N75.1 Abscess of Bartholin's gland (principal); I25.10 Atherosclerotic heart disease of native coronary artery without angina pectoris; F32.9 Major depressive disorder, single episode, unspecified; R56.9 Unspecified convulsions; Z72.0 Tobacco use; Z88.0 Allergy status to penicillin; Z88.1 Allergy status to other antibiotic agents
CPT/HCPCS: 56440; 56420; 87070; 87075; 87205; 96374; J2405

== ENCOUNTER 2023-03-01 11:41 | Emergency (ER) | payer OTHER, SELFPAY ==
[2023-03-01 12:00] VITALS: BP 102/75; PULSE 90; RESP 18; TEMP 36.9; O2SAT 99; BMI 22.4
--- NOTE | 2023-03-01 12:03 | EXP.UTC ---
Discharge Plan Disposition Patient Disposition: Home, Self-Care Condition: Good Prescriptions Prescriptions: New doxycycline hyclate 100 mg capsule 100 mg PO BID 7 Days Qty: 14 0RF prednisone 10 mg tablet 10 mg PO BID 5 Days Qty: 10 0RF No Action buspirone 5 mg tablet See Rx Instructions .ROUTE .COMPLEX Label Comments: TAKE 1 TABLET BY MOUTH TWICE DAILY IN THE MORNING AND IN THE AFTERNOON Rx Instructions: TAKE 1 TABLET BY MOUTH TWICE DAILY IN THE MORNING AND IN THE AFTERNOON trazodone 50 mg tablet See Rx Instructions .ROUTE .COMPLEX Label Comments: TAKE 1/4 TO 1/2 (ONE-FOURTH TO ONE-HALF) TABLET BY MOUTH AT BEDTIME NEEDED Rx Instructions: TAKE 1/4 TO 1/2 (ONE-FOURTH TO ONE-HALF) TABLET BY MOUTH AT BEDTIME NEEDED buspirone 10 mg tablet 10 mg PO DAILY escitalopram oxalate 20 mg tablet 20 mg PO DAILY Label Comments: TAKE 1 TABLET BY MOUTH ONCE DAILY Referrals Follow up/Referrals: Provider,Referral, MD [Primary Care Provider] - See instructions Activity Restrictions/Add. Instructions Additional Instructions/Restrictions: *Monitor Temp, Over the counter Motrin or Tylenol as directed/as needed Tylenol every 4 hours and Motrin every 6 hours (as long as your family doctor has told you that you can take it) for fever or pain. and straight to ER if unable to lower temp less than 101.0 after medication given *Warm salt water gargles may help to soothe the throat *Throat Lozenges? *Warm fluids like tea with honey may help to soothe the throat? *Sleep elevated *Humidifier/Vaporizer Take medication as prescribed Follow up IMMEDIATELY for new or worsening symptoms or no Noticeable improvement over the next 48-72 hours. 911 for difficulty breathing or swallowing Clinical Impressions Clinical Impression: Sinusitis Qualifiers: Sinusitis location: unspecified location Chronicity: unspecified Qualified Code(s): J32.9 - Chronic sinusitis, unspecified Instructions Patient Instructions: Sinusitis, DI for Sinusitis Discharge ED Provider: Carole Suggs [facility] General Stated complaint: Congestion headache Time Seen by Provider: 03/01/23 12:03 History of Present Illness Provider Complaint: Patient states that she has been having sinus pain and pressure for several days that has continued to get worse States that she feels like she may have a bad sinus infection so she came in to get checked Related Data Home Medications Medication Instructions Recorded Confirmed buspirone 10 mg tablet 10 mg PO DAILY , 03/01/23 03/01/23 buspirone 5 mg tablet See Rx Instructions .Route 03/01/23 03/01/23 .COMPLEX . escitalopram oxalate 20 mg tablet 20 mg PO DAILY . 03/01/23 03/01/23 trazodone 50 mg tablet See Rx Instructions .Route 03/01/23 03/01/23 .COMPLEX . Previous Rx's Medication Instructions Recorded doxycycline hyclate 100 mg capsule 100 mg PO BID 7 days #14 caps 03/01/23 prednisone 10 mg tablet 10 mg PO BID 5 days #10 tabs 03/01/23 Allergies Allergy/AdvReac Type Severity Reaction Status Date / Time azithromycin [From ZITHROMAX] Allergy Mild Verified 03/01/23 12:13 ciprofloxacin [From CIPRO] Allergy Mild Verified 03/01/23 12:13 Penicillins [PENICILLINS] Allergy Unknown Verified 03/01/23 12:13 [facility] Disclaimer: The information contained in this section may have been updated after the patient was seen, as this information can be updated by other users. Social History Smoking Status: Current every day smoker tobacco type: cigarettes packs per day: 1 second hand exposure: Yes alcohol intake: never substance use type: former substance user, crack/cocaine and amphetamines current occupational status: unemployed Travel in the last 8 weeks: None household members: family and none housing: house 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 current occupational exposures/hazards: No caffeine: Yes
[2023-03-01 12:36] VITALS: BP 102/75; PULSE 90; RESP 20; TEMP 36.9; O2SAT 99
== END 2023-03-01 12:36 | disposition home or self-care (01) ==
PROVIDERS: Emergency Provider Nurse Practitioner
DX: J01.90 Acute sinusitis, unspecified (principal); F17.210 Nicotine dependence, cigarettes, uncomplicated
CPT/HCPCS: 99212; 99214; G0463

== ENCOUNTER → 2023-05-05 23:33 | Outpatient (CLI) | payer OTHER, SELFPAY ==
[2023-05-05 17:51] LABS: Adenovirus,PCR Not Detected (NotDetected); Bordetella Pertussis Not Detected (NotDetected); Chlamydophila Pneumoniae, PCR Not Detected (NotDetected); Coronavirus 19, PCR Not Detected (NotDetected); Coronavirus 229E Not Detected (NotDetected); Coronavirus NL63 Not Detected (NotDetected); Coronavirus OC43 Not Detected (NotDetected); Coronovirus HKU1,PCR Not Detected (NotDetected); Human Metapneumovirus Not Detected (NotDetected); Influenza A, PCR Not Detected (NotDetected); Influenza AH1, 2009 Not Detected (NotDetected); Influenza AH1, PCR Not Detected (NotDetected); Influenza AH3,PCR Not Detected (NotDetected); Influenza B, PCR Not Detected (NotDetected); Mycoplasma Pneumoniae, PCR Not Detected (NotDetected); Parainfluenza 1, PCR Not Detected (NotDetected); Parainfluenza 2, PCR Not Detected (NotDetected); Parainfluenza 3, PCR Not Detected (NotDetected); Parainfluenza 4, PCR Not Detected (NotDetected); Respiratory Syncytial Virus Not Detected (NotDetected); Rhinovirus/Enterovirus Not Detected (NotDetected)
== END ==
PROVIDERS: PCP Nurse Practitioner Family; Visit Provider Nurse Practitioner Family
DX: R07.89 Other chest pain (principal)
CPT/HCPCS: 87581; 87632; 87635; 87798; C9803; U0003; U0005

== ENCOUNTER 2023-05-10 23:43 | Emergency (ER) | payer OTHER, SELFPAY ==
--- NOTE | 2023-05-10 23:42 | ECG_ITS ---
APPROVED REPORT Exam: Resting ECG HR:111 bpm ECG Measurements Heart Rate 111 AXES LA 142 P 76 QRSd 79 QRS 68 QT 329 T 59 QTc 394 Conclusion SINUS TACHYCARDIA ABNORMAL RHYTHM ECG UNCONFIRMED REPORT Electronically signed by : Taiwo Ching MD 05/11/2023 09:46:35
[2023-05-10 23:44] VITALS: BP 145/75; PULSE 85; RESP 20; TEMP 36.8; O2SAT 99; BMI 22.3
[2023-05-11 00:02] VITALS: BMI 22.3
--- NOTE | 2023-05-11 00:09 | PC.NURSE ---
Dr. Izquierdo at
[2023-05-11 00:14] LABS: Basophils # 0.1 K/mm3 (0-0.2); Basophils % 0.4 % (0.1-2.0); Eosinophils # 0.1 K/mm3 (0.0-0.4); Eosinophils % 0.8 % (0.1-12.0); Hematocrit 44.1 % (37.0-47.0); Hemoglobin 14.1 g/dL (12.2-16.2); Lymphocytes # 4.4 K/mm3 (0.7-4.5); Lymphocytes % 25.8 % (10-50); Mean Corpuscular Hemoglobin 31.7 pg (27.0-31.2); Mean Platelet Volume 9.1 fl (7.4-10.4); Monocytes # 1.2 K/mm3 (0.1-1.0); Neutrophils # 11.3 K/mm3 (1.8-7.8); Neutrophils % 65.9 % (37.0-80.0); Platelet Count 374 K/mm3 (142-424); Red Blood Count 4.45 M/mm3 (4.20-5.40); Red Cell Distribution Width 12.8 % (11.5-17.5); White Blood Count 17.2 K/mm3 (4.8-10.8)
[2023-05-11 00:14] LABS: Microscopic, Urine URINE MICROSCOPIC (MICROSCOPIC)
[2023-05-11 00:15] LABS: Appearance,Urine CLEAR (Clear); Bilirubin,Urine Negative (Negative); Blood, Urine Negative (Negative); Color,Urine YELLOW (Yellow); Glucose,Urine (UA) Negative (Negative); Ketones,Urine Negative (Negative); Leukocyte Esterase,Urine 1+ (Negative); Nitrate,Urine Negative (Negative); Protein,Urine Negative (Negative); Urobilinogen,Urine 0.2 EU/dl (0.2)
[2023-05-11 00:16] LABS: MANUAL DIFFERENTIAL MANUAL DIFFERENTIAL (MANUAL DIFF)
--- NOTE | 2023-05-11 00:17 | HMH.EDCP ---
Discharge Plan Disposition Patient Disposition: Left Against Medical Advice Prescriptions Prescriptions: No Action buspirone 10 mg tablet 10 mg PO DAILY escitalopram oxalate 20 mg tablet 20 mg PO DAILY Label Comments: TAKE 1 TABLET BY MOUTH ONCE DAILY Referrals Follow up/Referrals: Provider,Referral, MD [Referring] - See instructions Clinical Impressions Clinical Impression: Atypical chest pain Instructions Patient Instructions: DI for Atypical Chest Pain Discharge ED Provider: Felecia (ED)Alfredo Chest Pain HPI General Chief Complaint: Chest Pain Stated Complaint: Chest pain Time Seen by Provider: 05/11/23 00:00 Mode of Arrival: Ambulatory Source of Information: Patient, Significant Other and Medical Record Limitations: No Limitations Description of Symptoms (Recalled from ER Triage Doc. by RN): pt reports chest pain mid sternal started 20 mins prior to arrival the pt stated to have been vomiting then had an intense pain in the middle of her chest. the pt states that the pain is 8/10 but can not describe the pain. pt does report maternal family hx of heart attack History of Present Illness HPI narrative: pt with acute midsternal/epigastric chest pain rad to back with taste in mouth this pm - no known hx of ht dis MD complaint: chest pain indicative of cardiac Onset (ago): hour(s) Duration: intermittent Activity at onset: during rest Pain location: epigastric Severity: moderate Quality: aching Pain radiation: back Risk Factors for CAD: Family Hx of CAD and Smoking Treatments prior to or on arrival for Cardiac Chest Pain: none CLEO Score for Non-Stemi Age of Patient: <30 years old Heart Rate: 70-89 bpm Systolic Blood Pressure: 140-159 mmHg Serum Creatinine: 0.80-1.19 mg/dl CHF [place] Class: I-No CHF Other Risk Factors: None Non-Stemi Risk Score: 40 Risk Stratification: 1-108 = Low Risk Related Data Home Medications Medication Instructions Recorded Confirmed buspirone 10 mg tablet 10 mg PO DAILY , 03/01/23 05/11/23 escitalopram oxalate 20 mg tablet 20 mg PO DAILY . 03/01/23 05/11/23 Allergies Allergy/AdvReac Type Severity Reaction Status Date / Time azithromycin [From ZITHROMAX] Allergy Mild Verified 05/05/23 15:02 ciprofloxacin [From CIPRO] Allergy Mild Verified 05/05/23 15:02 Penicillins [PENICILLINS] Allergy Unknown Verified 05/05/23 15:02 [facility] Disclaimer: The information contained in this section may have been updated after the patient was seen, as this information can be updated by other users. Social History (Updated 03/23/23 @ 13:19 by JESSICA Torres) Smoking Status: Current some day smoker tobacco type: cigarettes packs per day: 1 second hand exposure: Yes alcohol intake: never substance use type: former substance user, crack/cocaine and amphetamines current occupational status: unemployed Travel in the last 8 weeks: None household members: family and none housing: house current occupation: [employer] current occupational exposures/hazards: No caffeine: Yes ROS Obtained: Yes All systems reviewed & no additional complaints except as documented Physical Exam General General appearance: alert Head Head exam: normocephalic Eye Eye exam: Present PERRL and EOMI; Absent scleral icterus ENT ENT exam: Present mucous membranes moist Neck Neck exam: Present trachea midline Respiratory Respiratory exam: Absent respiratory distress Cardiovascular Cardiovascular exam: Present regular rate; Absent systolic murmur, rubs, gallop or clicks Abdominal Exam Abdominal exam: Present soft; Absent tenderness Extremities Exam Extremities exam: Present full ROM; Absent calf tenderness Neurological Exam Neurological exam: Present alert, oriented X3 and CN II-XII intact; Absent motor sensory deficit Psychiatric Psychiatric exam: Present normal affect Skin Skin exam: Absent rash Medical Decision Making Medical Records Medical record
[2023-05-11 00:18] LABS: Anion Gap 14.3 mEq/L (5-15); Blood Urea Nitrogen 8 mg/dl (7-17); Calcium 8.9 mg/dl (8.4-10.2); Carbon Dioxide 27 mmol/L (22.0-30.0); Chloride 102 mmol/L (98-107); Creatinine Clearance Estimated 89 mL/min (50-200); Estimated Glomerular Filt Rate 76 ml/min (>60); GFR (African American) 92 ML/MIN (>60); Glucose 112 mg/dl (74-100); Magnesium 1.8 mg/dl (1.6-2.3); Potassium 3.3 mmoL/L (3.5-5.1); Sodium 140 mmol/L (136-145)
[2023-05-11 00:19] LABS: Urine Pregnancy, HCG Qual. Negative (Negative)
[2023-05-11 00:22] VITALS: PULSE 85
[2023-05-11 00:23] LABS: Lymphocytes % 30 % (10-50); Monocytes % 2 % (2-9); Neutrophils % 68 % (42-76); Platelet Estimate Normal; RBC Morphology Normal; Total Cells Counted 100
[2023-05-11 00:23] LABS: Bacteria,Urine 1+ /lpf
[2023-05-11 00:35] LABS: Free T4 (Free Thyroxine) 0.95 ng/dl (0.78-2.19); Troponin I < 0.01 ng/ml (0.00-0.034)
--- NOTE | 2023-05-11 00:47 | PC.NURSE ---
pt states pain has went away and she feels much better. pt states that she has a doctors appt in the morning and that she would like to leave. notified. pt made aware of the pending results and the AMA paperwork was explained and the pt requested to sign and leave
[2023-05-11 00:49] LABS: Thyroid Stimulating Hormone 2.56 uIU/mL (0.465-4.68)
[2023-05-11 00:53] VITALS: BP 115/67; PULSE 78; RESP 18; TEMP 37.1; O2SAT 98
== END 2023-05-11 00:53 | disposition left against medical advice (07) ==
PROVIDERS: Emergency Provider Emergency Medicine; PCP Nurse Practitioner Family
DX: R07.89 Other chest pain (principal); R10.13 Epigastric pain; F17.210 Nicotine dependence, cigarettes, uncomplicated
CPT/HCPCS: 80048; 81001; 81025; 83735; 84439; 84443; 84484; 85007; 85025; 87086; 93005; 96361; 96374; 96375; 99285

== ENCOUNTER 2023-09-19 10:16 | Emergency (ER) | payer OTHER, SELFPAY ==
[2023-09-19 10:17] VITALS: BP 118/72; PULSE 87; RESP 19; TEMP 36.8; O2SAT 100; BMI 22.8
--- NOTE | 2023-09-19 10:47 | EXP.UTC ---
Discharge Plan Disposition Patient Disposition: Home, Self-Care Condition: Good Prescriptions Prescriptions: New fluticasone propionate [Flonase Allergy Relief] 50 mcg/actuation spray,suspension 1 - 2 spray intranasal DAILY Qty: 16 0RF Rx Instructions: administer into each nostril daily meclizine 25 mg tablet 25 mg PO TID PRN (Reason: dizziness) Qty: 12 0RF No Action famotidine 20 mg tablet 20 mg PO DAILY Qty: 30 2RF escitalopram oxalate 20 mg tablet 30 mg PO DAILY Qty: 45 1RF buspirone 10 mg tablet 10 mg PO BID Qty: 60 1RF tretinoin [Retin-A] 0.1 % cream See Rx Instructions .ROUTE .COMPLEX Patient Comments: APPLY A PEA SIZED AMOUNT TO FACE NIGHTLY Rx Instructions: APPLY A PEA SIZED AMOUNT TO FACE NIGHTLY clindamycin-benzoyl peroxide 1-5 % gel See Rx Instructions .ROUTE .COMPLEX Patient Comments: APPLY A PEA SIZED AMOUNT TO THE FACE IN THE MORNING Rx Instructions: APPLY A PEA SIZED AMOUNT TO THE FACE IN THE MORNING Referrals Follow up/Referrals: Ambrosio Palencia APRN [Primary Care Provider] - See instructions Activity Restrictions/Add. Instructions Additional Instructions/Restrictions: *Monitor Temp, Over the counter Motrin or Tylenol as directed/as needed Tylenol every 4 hours and Motrin every 6 hours (as long as your family doctor has told you that you can take it) for fever or pain. and straight to ER if unable to lower temp less than 101.0 after medication given *Warm salt water gargles may help to soothe the throat *Throat Lozenges? *Warm fluids like tea with honey may help to soothe the throat? *Sleep elevated *Humidifier/Vaporizer *Flonase 2 sprays in each nostril daily but be aware that it may take 2-3 days before you notice improvement take meclizine as prescribed for dizziness Your throat swab was sent for culture. Those results are typically sent to your primary care. Be sure to follow up in 2-3 days with your family doctor/primary care physician if no improvement so they can review those result and treat if necessary. If you don?t have a primary care doctor, I recommend you get one but in the mean time, you will have to return to a walk in clinic Follow up IMMEDIATELY for new or worsening symptoms or no Noticeable improvement over the next 48-72 hours. 911 for difficulty breathing or swallowing You were tested for today for COVID19 your test result should be back in the next 24 hours You may check your results on the [facility] if your COVID test is positive you must Quarantine for 5 days per the CDC recommendations Clinical Impressions Clinical Impression: Viral syndrome Stand Alone Forms Stand Alone Forms: Work/School Release Instructions Patient Instructions: Vertigo, DI for Viral Syndrome, Meclizine Discharge ED Provider: Carole Suggs [facility] HPI General Stated complaint: cough, runny nose, dizzy, trouble hearing Mode of Arrival: Ambulatory Source of Information: Patient Limitations: No Limitations Time Seen by Provider: 09/19/23 10:47 Description of Symptoms (Recalled from Triage Doc. by RN): sore throat, stuffy nose, blurred vision, slight hearing loss, body aches, low-grade fever, and feels like her taste is odd. HEENT Symptoms (Recalled from RN notes): Yes Resp Symptoms (Recalled from RN notes): No Skin Symptoms (Recalled from RN notes): No MS Symptoms (Recalled from RN notes): No Functional Status (Recalled from RN notes): n/a History of Present Illness Provider Complaint: Patient states that several people at her work is out with COVID States that yesterday she started with stuffy nose, feeling achy all over and chills States that she noticed nothing was tasting right to her yesterday and last night she woke up in the middle of the night with low grade fever, felt dizzy and her vision felt weird but vision is better now but still gets dizzy on and off when she m
[2023-09-19 10:55] LABS: UTC Pregnancy Test, Urine Negative (Negative)
[2023-09-19 10:56] LABS: UTC Influenza A Antigen Negative (Negative); UTC Strep Screen (Rapid) Negative (Negative)
[2023-09-19 10:57] LABS: UTC Influenza B Antigen Negative (Negative)
[2023-09-19 11:13] VITALS: BP 118/72; PULSE 87; RESP 19; TEMP 36.8; O2SAT 100
== END 2023-09-19 11:13 | disposition home or self-care (01) ==
PROVIDERS: Emergency Provider Nurse Practitioner; PCP Nurse Practitioner Family
DX: U07.1 COVID-19 (principal); R42 Dizziness and giddiness; F17.210 Nicotine dependence, cigarettes, uncomplicated; F43.10 Post-traumatic stress disorder, unspecified
CPT/HCPCS: 81025; 87635; 87804; 87880; 99212; 99214; G0463

== ENCOUNTER → 2023-10-11 10:01 | Outpatient (CLI) | payer OTHER, SELFPAY ==
[2023-10-11 11:34] LABS: HCG,Quantitative 581 mIU/ml (0-5.42)
[2023-10-12 12:36] LABS: Progesterone 20.3 ng/mL (.)
== END ==
PROVIDERS: PCP Nurse Practitioner Family; Visit Provider Obstetrics & Gynecology
DX: N92.6 Irregular menstruation, unspecified (principal)
CPT/HCPCS: 36415; 84144; 84702

== ENCOUNTER → 2023-10-24 16:00 | Outpatient (CLI) | payer OTHER, SELFPAY ==
[2023-10-24 16:44] LABS: Basophils # 0.1 K/mm3 (0-0.2); Basophils % 0.6 % (0.1-2.0); Eosinophils # 0.3 K/mm3 (0.0-0.4); Eosinophils % 2.9 % (0.1-12.0); Hematocrit 39.2 % (37.0-47.0); Hemoglobin 14.1 g/dL (12.2-16.2); Lymphocytes # 2.5 K/mm3 (0.7-4.5); Lymphocytes % 22.9 % (10-50); Mean Corpuscular HGB Conc 35.9 g/dL (31.8-35.4); Mean Corpuscular Hemoglobin 33.5 pg (27.0-31.2); Mean Corpuscular Volume 93.2 fl (81-99); Monocytes # 0.7 K/mm3 (0.1-1.0); Monocytes % 6.5 % (1.7-9.3); Neutrophils # 7.3 K/mm3 (1.8-7.8); Neutrophils % 67.2 % (37.0-80.0); Platelet Count 352 K/mm3 (142-424); Red Blood Count 4.21 M/mm3 (4.20-5.40); Red Cell Distribution Width 12.5 % (11.5-17.5); White Blood Count 10.9 K/mm3 (4.8-10.8)
[2023-10-26 08:19] LABS: Rubella Antibodies, IgG 1.61 index (Immune >0.99)
[2023-10-26 10:15] LABS: HIV Screen 4th Generation wRfx Non Reactive (Non Reactive)
[2023-10-26 11:20] LABS: Rapid Plasma Reagin Ab Titer Non Reactive titer (NonRea<1:1)
[2023-10-29 22:47] LABS: Hepatitis B Surface Antigen Negative
[2023-10-29 22:48] LABS: Hepatitis C Antibody Non Reactive
== END ==
PROVIDERS: PCP Nurse Practitioner Family; Visit Provider Obstetrics & Gynecology
DX: Z34.91 Encounter for supervision of normal pregnancy, unspecified, first trimester (principal); Z3A.01 Less than 8 weeks gestation of pregnancy
CPT/HCPCS: 36415; 85025; 86593; 86703; 86762; 86850; 87086; 87340; 87380; G0432

== ENCOUNTER 2023-10-30 14:00 | Emergency (ER) | payer OTHER, SELFPAY ==
[2023-10-30 14:37] VITALS: BP 0/0; PULSE 0; RESP 0; TEMP -17.7; TEMP 0
== END 2023-10-30 14:37 | disposition left against medical advice (07) ==
LOC: UTC 14:01
PROVIDERS: Emergency Provider Nurse Practitioner; PCP Nurse Practitioner Family
DX: Z53.21 Procedure and treatment not carried out due to patient leaving prior to being seen by health care provider (principal)

== ENCOUNTER 2023-11-02 19:51 | Emergency (ER) | payer OTHER, SELFPAY ==
[2023-11-02 20:27] VITALS: BP 110/67; PULSE 89; RESP 18; TEMP 37.3; O2SAT 99; BMI 22.8
[2023-11-02 20:47] LABS: Microscopic, Urine URINE MICROSCOPIC (MICROSCOPIC)
[2023-11-02 20:49] LABS: Basophils % 0.7 % (0.1-2.0); Eosinophils # 0.1 K/mm3 (0.0-0.4); Eosinophils % 1.9 % (0.1-12.0); Hematocrit 36.2 % (37.0-47.0); Hemoglobin 12.7 g/dL (12.2-16.2); Lymphocytes # 1.9 K/mm3 (0.7-4.5); Lymphocytes % 28.9 % (10-50); Mean Corpuscular HGB Conc 35.1 g/dL (31.8-35.4); Mean Corpuscular Hemoglobin 33.1 pg (27.0-31.2); Mean Corpuscular Volume 94.3 fl (81-99); Mean Platelet Volume 8.7 fl (7.4-10.4); Monocytes # 0.5 K/mm3 (0.1-1.0); Monocytes % 7.3 % (1.7-9.3); Neutrophils % 61.3 % (37.0-80.0); Platelet Count 263 K/mm3 (142-424); Red Blood Count 3.84 M/mm3 (4.20-5.40); Red Cell Distribution Width 12.6 % (11.5-17.5); White Blood Count 6.5 K/mm3 (4.8-10.8)
[2023-11-02 21:00] LABS: Alanine Aminotransferase 31 U/L (12-78); Alkaline Phosphatase 66 U/L (38-126); Aspartate Amino Transferase 29 U/L (14-36); Bilirubin,Total 0.2 mg/dl (0.2-1.3); Blood Urea Nitrogen 2 mg/dl (7-17); Calcium 8.5 mg/dl (8.4-10.2); Carbon Dioxide 28 mmol/L (22.0-30.0); Chloride 104 mmol/L (98-107); Creatinine Clearance Estimated 137 mL/min (50-200); Estimated Glomerular Filt Rate 122 ml/min (>60); GFR (African American) 147 ML/MIN (>60); Glucose 74 mg/dl (74-100)
[2023-11-02 21:01] LABS: Total Protein,Serum 7.3 g/dl (6.3-8.2)
[2023-11-02 21:12] LABS: Albumin Level 4.2 g/dl (3.5-5.0); Albumin/Globulin Ratio 1.4 (1.1-1.8); Anion Gap 8.1 mEq/L (5-15); Globulin 3.1 g/dL (1.3-3.2); Potassium 3.1 mmoL/L (3.5-5.1); Sodium 137 mmol/L (136-145)
[2023-11-02 21:24] LABS: Appearance,Urine CLEAR (Clear); Bilirubin,Urine Negative (Negative); Blood, Urine Negative (Negative); Color,Urine YELLOW (Yellow); Glucose,Urine (UA) Negative (Negative); Ketones,Urine Negative (Negative); Leukocyte Esterase,Urine Negative (Negative); Nitrate,Urine Negative (Negative); Protein,Urine Negative (Negative); Specific Gravity, Urine <= 1.005 (1.005-1.030); Urobilinogen,Urine 0.2 EU/dl (0.2)
[2023-11-02 21:37] LABS: Influenza B, PCR Not Detected (NotDetected)
[2023-11-02 22:05] LABS: Coronavirus 19, PCR Detected (NotDetected)
[2023-11-02 22:06] LABS: Influenza A, PCR Detected (NotDetected)
[2023-11-02 22:26] VITALS: BP 121/70; PULSE 73; RESP 16; TEMP 36.8; O2SAT 98
--- NOTE | 2023-11-03 00:02 | HMH.EDGENADL ---
Discharge Plan Disposition Patient Disposition: Home, Self-Care Condition: Good Prescriptions Prescriptions: New cefdinir 300 mg capsule 300 mg PO BID 10 Days Qty: 20 0RF ondansetron 4 mg tablet,disintegrating 4 mg PO Q8H PRN (Reason: nausea and vomiting) 4 Days Qty: 12 0RF No Action escitalopram oxalate 20 mg tablet 30 mg PO DAILY Qty: 45 1RF buspirone 10 mg tablet 10 mg PO BID Qty: 60 1RF Classic 28 mg iron- 800 mcg tablet 1 tab PO DAILY fluticasone propionate [Flonase Allergy Relief] 50 mcg/actuation spray,suspension 1 - 2 spray intranasal DAILY Qty: 16 0RF Rx Instructions: administer into each nostril daily Referrals Follow up/Referrals: Ambrosio Palencia APRN [Primary Care Provider] - See instructions Activity Restrictions/Add. Instructions Additional Instructions/Restrictions: You were evaluated in the emergency department today. You tested positive for COVID and the flu. I also feel that you have a right lower lobe pneumonia, as you have diminished breath sounds on exam. Please pharmacy picking technician your prescription for antibiotics as well as nausea medication and take as prescribed. Take Tylenol at home as needed for pain and fever. Return to the emergency department for new or worsening symptoms. Clinical Impressions Clinical Impression: COVID-19, Flu, Right lower lobe pneumonia Stand Alone Forms Stand Alone Forms: Work/School Release Instructions Patient Instructions: DI for Pneumonia -- Adult, DI for Viral Upper Respiratory Infection -- Adult Discharge ED Provider: Vika Magallon General Adult HPI General Chief complaint: Upper Respiratory Infection Stated complaint: vomting, cough, ernestine, earache Time Seen by Provider: 11/02/23 20:47 Mode of Arrival: Family Vehicle Source of Information: Patient Limitations: No Limitations Description of Symptoms (Recalled from ER Triage Doc. by RN): cough x 2 weeks; decr appetite, sinus congestion, body aches, low grade fever; arrives for chief complaint of discomfort. patient is a&ox3. 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 History of Present Illness HPI narrative: This patient is a 27-year-old female G2, P1 at estimated 8 weeks gestation presenting to the emergency department for evaluation with concern for body aches, cough x 2 weeks, decreased appetite, nausea, vomiting, and sinus congestion. 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 She states that she has been feeling much worse over the last few days with prompted her to come here. No other concerns noted, such as lower abdominal pain, vaginal bleeding, abnormal vaginal discharge, or other concerns. Related Data Home Medications Medication Instructions Recorded Confirmed vits no.[id number]-ferrous fum 1 tab PO DAILY 10/24/23 11/02/23 28 mg iron-folic acid 800 mcg tablet (Classic ) Previous Rx's Medication Instructions Recorded buspirone 10 mg tablet 10 mg PO BID , #60 tabs 08/29/23 escitalopram oxalate 20 mg tablet 30 mg PO DAILY . #45 tabs 08/29/23 fluticasone propionate 50 1 - 2 spray intranasal DAILY #16 09/19/23 mcg/actuation nasal grams spray,suspension (Flonase Allergy Relief) cefdinir 300 mg capsule 300 mg PO BID 10 days #20 caps 11/02/23 ondansetron 4 mg disintegrating 4 mg PO Q8H PRN nausea and 11/02/23 tablet vomiting 4 days #12 tabs Allergies Allergy/AdvReac Type Severity Reaction Status Date / Time azithromycin [From ZITHROMAX] Allergy Mild Verified 10/24/23 15:10 ciprofloxacin [From CIPRO] Allergy Mild Verified 10/24/23 15:10 Penicillins [PENICILLINS] Allergy Unknown Verified 10/24/23 15:10 [facility] Disclaimer: The information contained in this section may have been updated after the patient was seen, as this information can be updated by other users. Medical History (Updated 11/02/23 @ 22:18 by Vika Magallon DO
== END 2023-11-02 22:32 | disposition home or self-care (01) ==
PROVIDERS: Emergency Provider Emergency Medicine; PCP Nurse Practitioner Family
DX: O98.511 Other viral diseases complicating pregnancy, first trimester; U07.1 COVID-19; J10.08 Influenza due to other identified influenza virus with other specified pneumonia; Z3A.08 8 weeks gestation of pregnancy; E87.6 Hypokalemia; R50.9 Fever, unspecified; R05.9 Cough, unspecified; R09.81 Nasal congestion; R11.2 Nausea with vomiting, unspecified; M79.18 Myalgia, other site; J18.1 Lobar pneumonia, unspecified organism
CPT/HCPCS: 80053; 81001; 84702; 85025; 87636; 96361; 96374; 99284; J2405

== ENCOUNTER 2024-01-08 10:35 | Emergency (ER) | payer OTHER, SELFPAY ==
[2024-01-08 11:35] VITALS: BP 117/64; PULSE 86; RESP 19; TEMP 36.7; O2SAT 98; BMI 22.8
[2024-01-08 11:41] LABS: Apearance,Urine Clear (Clear); Bilirubin,Urine Negative (Negative); Blood, Urine Trace (Negative); Color,Urine Dark Yellow (Yellow); Glucose,Urine (UA) Negative (Negative); Ketones,Urine Negative (Negative); Protein,Urine Negative (Negative); Specific Gravity, Urine 1.015 (1.005-1.030); UTC Leukocyte Esterase,Urine 1+ (Negative); UTC Nitrate,Urine Negative (Negative); Urobilinogen,Urine 0.2 EU/dl (0.2)
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
[2024-01-08 12:13] LABS: UTC Influenza A Antigen Negative (Negative); UTC Influenza B Antigen Negative (Negative); UTC Strep Screen (Rapid) Negative (Negative)
[2024-01-08 12:14] VITALS: BP 117/64; PULSE 86; RESP 19; TEMP 36.7; O2SAT 98
== END 2024-01-08 12:16 | disposition home or self-care (01) ==
PROVIDERS: Emergency Provider Nurse Practitioner; PCP Nurse Practitioner Family
DX: O23.42 Unspecified infection of urinary tract in pregnancy, second trimester (principal); N39.0 Urinary tract infection, site not specified; B96.89 Other specified bacterial agents as the cause of diseases classified elsewhere; R31.9 Hematuria, unspecified; Z3A.18 18 weeks gestation of pregnancy; R09.81 Nasal congestion; R05.9 Cough, unspecified; R07.0 Pain in throat; O99.332 Smoking (tobacco) complicating pregnancy, second trimester; F17.210 Nicotine dependence, cigarettes, uncomplicated
CPT/HCPCS: 81003; 87086; 87804; 87880; 99212; 99214; G0463

== ENCOUNTER 2024-01-08 12:25 | Outpatient (CLI) | payer OTHER, SELFPAY ==
--- NOTE | 2024-01-08 12:50 | US_ITS ---
PROCEDURE: US OB >= 14 WEEKS FETUS CLINICAL INDICATION: DECREASED MOVEMENT COMPARISON: No exams were available for comparison FINDINGS: Transabdominal sonographic images of the pelvis were obtained. The following parameters are obtained: From her established due date she is 18 weeks 3 days. Viable fetus in the cephalic presentation with an anterior placenta grade 1. Amniotic fluid appears normal. The cervix measures 3.4 cm heart rate: 142bpm bpm. No obvious anomalies evident. profile seen, nasion, stomach, bladder, kidneys, three-vessel cord, four chamber heart appear normal. Transabdominal sonographic images of the pelvis were obtained. IMPRESSION: 1. Viable fetus in the cephalic presentation with anterior placenta grade 1. 2. The fluid is within normal limits. 3. movement is seen. 4. Limited anatomical scan appears normal. Dictated by: Praveen Lincoln MD 01/08/2024 16:23 Praveen Lincoln MD in [place] 01/08/2024 16:23
== END 2024-01-08 23:59 ==
LOC: RAD 12:25
PROVIDERS: PCP Nurse Practitioner Family; Visit Provider Obstetrics & Gynecology
DX: O36.8120 Decreased fetal movements, second trimester, not applicable or unspecified (principal); Z3A.18 18 weeks gestation of pregnancy
CPT/HCPCS: 76805

== ENCOUNTER 2024-01-23 12:54 | Outpatient (CLI) | payer OTHER, SELFPAY ==
--- NOTE | 2024-01-23 12:59 | US_ITS ---
PROCEDURE: US OB >= 14 WEEKS FETUS CLINICAL INDICATION: Decreased movement states patient COMPARISON: US US OB >= 14 WEEKS FETUS from 01/08/2024 FINDINGS: Transabdominal sonographic images of the pelvis were obtained. From her established due date she is 20 weeks 4 days. Single viable intrauterine gestation. Breech position. Placenta: Anteriorplacenta grade 1. There is an average amount of fluid. The cervix appears satisfactory. Closed and measuring 4.0 cm in length. Complete survey performed and was unremarkable on the submitted images as in PACS. No discrete anomalies identified on survey imaging by technologist. Active fetus. Three-vessel cord with satisfactory umbilical cord insertion. 4- chamber heart noted. Situs, aortic arch, LVOT, RVOT, three-vessel view appear normal. Survey of brain & ventricles Unremarkable. Cerebellum, thalamus, choroid plexus, cisterna magna appear normal. Face and neck survey unremarkable. Profile, nasion, lips and nose appeared normal. Diaphragm and chest views unremarkable. Abdomen: Both kidneys noted and unremarkable. Stomach and bladder noted and satisfactory. There is bilateral renal pelvis dilation 4.8 mm and 5.0 mm. Spine: Survey of the spine satisfactory with no anomalies identified nor imaged. Cervical, thoracic, lower spine appear normal. Both arms and legs noted. Amniotic Fluid: Adequate. Measurements: Average ultrasound age 19weeks 4days. Estimated due date by ultrasound age 0806/14/2024. Estimated weight 301g BPD = 19weeks 5days HC = 19weeks AC = 20weeks FL = 19weeks 3days Growth Percentile= 8 Heart Rate = 142bpm Cerebellum = 19weeks 4days Humerus = 19weeks 3days HC/AC is 1.11 FL/BPD is 0.67 FL/AC is 0.21 IMPRESSION: 1. Viable fetus in the breech presentation with an anterior placenta grade 1. 2. The fluid is within normal limits. 3. Anatomical scan appears normal. There is bilateral renal dilation of 5 mm that will require follow-up. Suggest repeat ultrasound at 28 weeks. 4. biometry is consistent with the dates. Dictated by: Praveen Lincoln MD 01/24/2024 03:49 Praveen Lincoln MD in [place] 01/24/2024 03:49
== END 2024-01-23 23:59 ==
LOC: RAD 12:54
PROVIDERS: PCP Nurse Practitioner Family; Visit Provider Obstetrics & Gynecology
DX: Z3A.19 19 weeks gestation of pregnancy; O36.5910 Maternal care for other known or suspected poor fetal growth, first trimester, not applicable or unspecified
CPT/HCPCS: 76805

== ENCOUNTER 2024-02-16 19:47 | Outpatient (CLI) | payer OTHER, SELFPAY ==
[2024-02-16 20:09] VITALS: BP 116/58; PULSE 86; RESP 18; TEMP 36.8; O2SAT 99; BMI 24.7
== END 2024-02-16 20:32 | disposition home or self-care (01) ==
LOC: OBOUT 19:52 → OB 19:53
PROVIDERS: PCP Nurse Practitioner Family; Visit Provider Nurse Practitioner Obstetrics & Gynecology
DX: O26.892 Other specified pregnancy related conditions, second trimester (principal); Z3A.22 22 weeks gestation of pregnancy; S36.30XA Unspecified injury of stomach, initial encounter
CPT/HCPCS: 59025

== ENCOUNTER 2024-02-20 13:02 | Outpatient (CLI) | payer OTHER, SELFPAY ==
--- NOTE | 2024-02-20 13:03 | US_ITS ---
PROCEDURE: US OB FOLLOW UP CLINICAL INDICATION: SGA with LAURA and SD RATIO-Recheck Kidneys on Fetus COMPARISON: US US OB >= 14 WEEKS FETUS from 01/08/2024 US US OB >= 14 WEEKS FETUS from 01/23/2024 FINDINGS: Transabdominal sonographic images of the pelvis were obtained. The following parameters are obtained: From her established due date she is 23weeks 4days Viable fetus in the breech presentation with an anterior placenta grade 1. The cervix measures 2.71 cm. heart rate: 140bpm bpm. BPD: 22weeks 4days, 12th percentile HC: 22weeks 3days, 4th percentile AC: 22weeks 4days, 13th percentile FL: 22weeks 5days, 13th percentile HC/AC: 1.15 FL/BPD: 0.72 FL/AC: 0.22 Growth percentile: 8 % Amniotic fluid index: 13.82cm SD ratio 3.67-4.37 No obvious anomalies evident. profile seen, stomach, bladder, kidneys, three-vessel cord, four chamber heart appear normal. There is bilateral mild renal pyelectasis. Right side greater than left side. On the right there is 5.1 mm dilation. IMPRESSION: 1. Viable fetus in the breech presentation with an anterior placenta grade 1. 2. Fluid is within normal limits with an amniotic fluid index of 13.82 cm. 3. Limited anatomical scan appears normal with persistent mild bilateral renal pyelectasis. There has been no increase in the size of the renal dilation. 4. There has been good interval growth with the fetus remaining at 8th percentile. 5. SD ratio is normal. 6. Suggest continued monitoring of the bilateral hydronephrosis. Dictated by: Praveen Lincoln MD 02/20/2024 16:34 Praveen Lincoln MD in [place] 02/20/2024 16:34
== END 2024-02-20 23:59 | disposition home or self-care (01) ==
LOC: RAD 13:03
PROVIDERS: PCP Nurse Practitioner Family; Visit Provider Obstetrics & Gynecology
DX: O36.5920 Maternal care for other known or suspected poor fetal growth, second trimester, not applicable or unspecified (principal); Z3A.23 23 weeks gestation of pregnancy; O35.EXX0 Maternal care for other (suspected) fetal abnormality and damage, fetal genitourinary anomalies, not applicable or unspecified
CPT/HCPCS: 76816; 76820

== ENCOUNTER 2024-02-23 08:33 | Outpatient (CLI) | payer OTHER, SELFPAY ==
[2024-02-23 09:22] VITALS: BMI 23.2
[2024-02-23 09:26] LABS: Microscopic, Urine URINE MICROSCOPIC (MICROSCOPIC)
[2024-02-23 09:30] LABS: Appearance,Urine CLEAR (Clear); Bilirubin,Urine Negative (Negative); Blood, Urine TRACE-I (Negative); Color,Urine YELLOW (Yellow); Glucose,Urine (UA) Negative (Negative); Ketones,Urine Negative (Negative); Leukocyte Esterase,Urine TRACE (Negative); Nitrate,Urine Negative (Negative); Protein,Urine Negative (Negative); Urobilinogen,Urine 0.2 EU/dl (0.2)
[2024-02-23 09:40] LABS: Phencyclidine Screen,Urine Negative ng/ml (<25)
[2024-02-23 09:41] LABS: Opiate Screen,Urine Negative ng/ml (<300)
[2024-02-23 09:43] LABS: Amphetamine/Metha Screen,Urine Negative ng/ml (<1000)
[2024-02-23 09:44] LABS: Barbiturates Screen,Urine Negative ng/ml (<200); Benzodiazepines Screen,Urine Negative ng/ml (<200)
[2024-02-23 09:45] LABS: Cannabinoid Screen,Urine Negative ng/ml (<50); Cocaine Screen,Urine Negative ng/ml (<300)
[2024-02-23 09:46] LABS: Methadone Screen,Urine Negative ng/ml (<300)
[2024-02-23 09:50] VITALS: BP 103/55; PULSE 75; RESP 20; TEMP 36.7; O2SAT 99; BMI 23.2
[2024-02-23 11:52] LABS: Bacteria,Urine 1+ /lpf; RBC,Urine Occasional #/hpf (0-3)
== END 2024-02-23 09:30 | disposition home or self-care (01) ==
LOC: OBOUT 08:35 → OB 08:35
PROVIDERS: PCP Nurse Practitioner Family; Visit Provider Obstetrics & Gynecology
DX: O26.892 Other specified pregnancy related conditions, second trimester (principal); Z3A.24 24 weeks gestation of pregnancy
CPT/HCPCS: 80307; 81001; G0463

== ENCOUNTER 2024-03-25 10:10 | Outpatient (CLI) | payer OTHER, SELFPAY ==
--- NOTE | 2024-03-25 10:14 | US_ITS ---
PROCEDURE: US OB FOLLOW UP CLINICAL INDICATION: SGA, OB Growth with SD Ratio and LAURA COMPARISON: US US OB >= 14 WEEKS FETUS from 01/08/2024 US US OB >= 14 WEEKS FETUS from 01/23/2024 US US OB FOLLOW UP from 02/20/2024 FINDINGS: Transabdominal sonographic images of the pelvis were obtained. The following parameters are obtained: From her established due date she is 28weeks 3days Viable fetus in the cephalic presentation with an anterior placenta grade 2. The cervix measures 3.9 cm. heart rate: 142bpm bpm. BPD: 27weeks 1day, 7 percentile HC: 27weeks 0 days, < 2 percentile AC: 27weeks 6days, 23 percentile FL: 27weeks 5days, 15 percentile HC/AC: 1.06 FL/BPD: 0.77 FL/AC: 0.22 Growth percentile: 13 Amniotic fluid index: 14.08cm, MVP 5.82 cm. S/D ratio 3.6-3.7. No obvious anomalies evident. profile seen, stomach, bladder, kidneys, three-vessel cord, four chamber heart appear normal. IMPRESSION: 1. Viable fetus in the cephalic presentation with an anterior placenta grade 2. 2. The fluid is within normal limits with an amniotic fluid index of 14.08 cm, MVP 5.82 cm. 3. There has been good interval growth with the fetus currently 13th percentile. 4. The casino host noted that there was bilateral hydronephrosis but there is no photographic documentation today. I would suggest a repeat scan in 4 weeks. 5. SD ratio is normal at 3.7. 6. Limited anatomical scan appears normal. Dictated by: Praveen Lincoln MD 03/25/2024 15:45 Praveen Lincoln MD in [place] 03/25/2024 15:45
[2024-03-25 11:54] LABS: Basophils # 0.1 K/mm3 (0-0.2); Basophils % 0.5 % (0.1-2.0); Eosinophils # 0.2 K/mm3 (0.0-0.4); Eosinophils % 1.8 % (0.1-12.0); Hematocrit 35.4 % (37.0-47.0); Hemoglobin 11.7 g/dL (12.2-16.2); Lymphocytes % 14.6 % (10-50); Mean Corpuscular HGB Conc 33.1 g/dL (31.8-35.4); Mean Corpuscular Hemoglobin 32.7 pg (27.0-31.2); Mean Corpuscular Volume 98.6 fl (81-99); Mean Platelet Volume 8.7 fl (7.4-10.4); Monocytes # 0.6 K/mm3 (0.1-1.0); Monocytes % 4.5 % (1.7-9.3); Neutrophils # 10.8 K/mm3 (1.8-7.8); Neutrophils % 78.6 % (37.0-80.0); Platelet Count 298 K/mm3 (142-424); Red Blood Count 3.59 M/mm3 (4.20-5.40); Red Cell Distribution Width 13.2 % (11.5-17.5); White Blood Count 13.7 K/mm3 (4.8-10.8)
[2024-03-25 12:54] LABS: Glucose,Fasting 113 mg/dl (74-100)
[2024-03-25 13:32] LABS: Glucose 1 Hour 111 mg/dL (74-100)
== END 2024-03-25 23:59 | disposition home or self-care (01) ==
LOC: RAD 10:11
PROVIDERS: PCP Nurse Practitioner Family; Visit Provider Obstetrics & Gynecology
DX: O36.5930 Maternal care for other known or suspected poor fetal growth, third trimester, not applicable or unspecified (principal); Z3A.28 28 weeks gestation of pregnancy
CPT/HCPCS: 36415; 76816; 76820; 82951; 85025

== ENCOUNTER 2024-04-16 10:58 | Emergency (ER) | payer OTHER, SELFPAY ==
[2024-04-16 11:10] VITALS: BP 114/69; PULSE 70; RESP 19; TEMP 36.8; O2SAT 98; BMI 25.0
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
[2024-04-16 12:08] VITALS: BP 114/69; PULSE 70; RESP 18; TEMP 36.8; O2SAT 98
== END 2024-04-16 12:08 | disposition home or self-care (01) ==
PROVIDERS: Emergency Provider Nurse Practitioner Family; PCP Nurse Practitioner Family
DX: O26.893 Other specified pregnancy related conditions, third trimester (principal); R05.9 Cough, unspecified; R09.81 Nasal congestion; O99.333 Smoking (tobacco) complicating pregnancy, third trimester; F17.210 Nicotine dependence, cigarettes, uncomplicated; Z3A.31 31 weeks gestation of pregnancy
CPT/HCPCS: 99212; 99214; G0463

== ENCOUNTER 2024-04-24 13:00 | Outpatient (CLI) | payer OTHER, SELFPAY ==
--- NOTE | 2024-04-24 13:04 | US_ITS ---
PROCEDURE: US OB FOLLOW UP CLINICAL INDICATION: IUGR COMPARISON: US US OB >= 14 WEEKS FETUS from 01/08/2024 US US OB FOLLOW UP from 02/20/2024 US US OB FOLLOW UP from 03/25/2024 FINDINGS: Transabdominal sonographic images of the pelvis were obtained. The following parameters are obtained: From her established due date she is 32weeks 5days Viable fetus in the cephalic presentation with an anterior placenta grade 2. The cervix measures 3.2 cm heart rate: 117bpm bpm. BPD: 30weeks 1day, <2 percentile HC: 30weeks 5days, <2 percentile AC: 31weeks 6days, 24 percentile FL: 30weeks 5days, 4 percentile HC/AC: 1.01 FL/BPD: 0.79 FL/AC: 0.21 Growth percentile: 8 Amniotic fluid index: 14.44cm, MVP 4.69 cm. SD ratio measures 2.68-5.05 No obvious anomalies evident. profile seen, stomach, bladder, kidneys, three-vessel cord, four chamber heart appear normal. Persistent mild, bilateral renal pelvis dilation. Left kidney measures 4.9 mm, right kidney measures 4.1 mm. IMPRESSION: 1. Viable fetus in the cephalic presentation with anterior placenta grade 2. 2. The fluid is within normal limits with amniotic fluid index of 14.44 cm, MVP 4.69 cm. 3. SD ratio is normal 2.68-5.05. 4. Limited anatomical scan appears normal. 5. There continues to be mild bilateral renal pelvis dilation. 6. Fetus continues to have a small head less than the 2nd percentile. AC is 24th percentile. Growth is 8th percentile. Dictated by: Praveen Lincoln MD 04/24/2024 16:44 Praveen Lincoln MD in [place] 04/24/2024 16:44
== END 2024-04-24 23:59 | disposition home or self-care (01) ==
LOC: RAD 13:00
PROVIDERS: PCP Nurse Practitioner Family; Visit Provider Obstetrics & Gynecology
DX: O36.5930 Maternal care for other known or suspected poor fetal growth, third trimester, not applicable or unspecified (principal); Z3A.32 32 weeks gestation of pregnancy; Z87.898 Personal history of other specified conditions
CPT/HCPCS: 76816; 76820

== ENCOUNTER 2024-05-10 12:18 | Outpatient (CLI) | payer OTHER, SELFPAY ==
[2024-05-10 12:38] VITALS: BMI 56.3
[2024-05-10 12:40] VITALS: BP 120/76; PULSE 83; RESP 18; TEMP 36.6; O2SAT 98; BMI 25.5
[2024-05-10 12:44] LABS: Microscopic, Urine URINE MICROSCOPIC (MICROSCOPIC)
[2024-05-10 12:53] LABS: Appearance,Urine CLEAR (Clear); Blood, Urine TRACE-L (Negative); Color,Urine YELLOW (Yellow); Glucose,Urine (UA) Negative (Negative); Ketones,Urine Negative (Negative); Leukocyte Esterase,Urine TRACE (Negative); Nitrate,Urine Negative (Negative); Protein,Urine TRACE (Negative)
[2024-05-10 12:55] LABS: Bilirubin,Urine Negative (Negative)
[2024-05-10 13:08] LABS: Bacteria,Urine 2+ /lpf; RBC,Urine Occasional #/hpf (0-3)
[2024-05-10 13:17] LABS: Barbiturates Screen,Urine Negative ng/ml (<200); Benzodiazepines Screen,Urine Negative ng/ml (<200)
[2024-05-10 13:18] LABS: Amphetamine/Metha Screen,Urine Negative ng/ml (<1000)
[2024-05-10 13:19] LABS: Cannabinoid Screen,Urine Negative ng/ml (<50); Cocaine Screen,Urine Negative ng/ml (<300)
[2024-05-10 13:20] LABS: Methadone Screen,Urine Negative ng/ml (<300)
[2024-05-10 13:21] LABS: Phencyclidine Screen,Urine Negative ng/ml (<25)
[2024-05-10 13:33] LABS: Opiate Screen,Urine Negative ng/ml (<300)
== END 2024-05-10 13:35 | disposition home or self-care (01) ==
LOC: OBOUT 12:21 → OB 12:22
PROVIDERS: Nurse Practitioner Obstetrics & Gynecology; PCP Nurse Practitioner Family; Visit Provider Obstetrics & Gynecology
DX: O14.93 Unspecified pre-eclampsia, third trimester (principal); M79.89 Other specified soft tissue disorders; Z3A.35 35 weeks gestation of pregnancy
CPT/HCPCS: 59025; 80307; 81001; 87086

== ENCOUNTER 2024-05-17 11:08 | Outpatient (CLI) | payer OTHER, SELFPAY ==
--- NOTE | 2024-05-17 11:24 | CA_ITS ---
FINAL REPORT TECHNIQUE: Color Doppler, duplex Doppler and compression sonography of the right lower extremity venous system was performed. 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 Patient states her right leg had been swollen and sore for a month before the trip. Denies trauma. FINDINGS: There is no evidence of deep venous thrombosis from the level of the groin to the calf. The veins are patent and compressible. IMPRESSION: No evidence of deep venous thrombosis right lower extremity. Reviewed, Interpreted and Dictated by Heron Baxter III, MD Transcribed by Shelbi Mccormack Authenticated and [facility]
[2024-05-17 11:43] LABS: Basophils # 0.1 K/mm3 (0-0.2); Basophils % 0.4 % (0.1-2.0); Eosinophils # 0.2 K/mm3 (0.0-0.4); Eosinophils % 1.9 % (0.1-12.0); Hematocrit 35.8 % (37.0-47.0); Hemoglobin 12.2 g/dL (12.2-16.2); Lymphocytes # 1.9 K/mm3 (0.7-4.5); Lymphocytes % 17.4 % (10-50); Mean Corpuscular Volume 97.1 fl (81-99); Mean Platelet Volume 9.4 fl (7.4-10.4); Monocytes # 0.5 K/mm3 (0.1-1.0); Monocytes % 4.9 % (1.7-9.3); Neutrophils # 8.3 K/mm3 (1.8-7.8); Neutrophils % 75.4 % (37.0-80.0); Platelet Count 267 K/mm3 (142-424); Red Blood Count 3.68 M/mm3 (4.20-5.40); Red Cell Distribution Width 13.4 % (11.5-17.5)
== END 2024-05-17 23:59 | disposition home or self-care (01) ==
PROVIDERS: PCP Nurse Practitioner Family; Visit Provider Obstetrics & Gynecology
DX: O22.33 Deep phlebothrombosis in pregnancy, third trimester (principal); Z3A.36 36 weeks gestation of pregnancy; O12.03 Gestational edema, third trimester
CPT/HCPCS: 36415; 85025; 86403; 93971

== ENCOUNTER 2024-05-23 12:41 | Outpatient (CLI) | payer OTHER, SELFPAY ==
--- NOTE | 2024-05-23 12:42 | US_ITS ---
PROCEDURE: US OB BIOPHYSICAL PROFILE CLINICAL INDICATION: IUGR COMPARISON: US US OB FOLLOW UP from 03/25/2024 US US OB FOLLOW UP from 04/24/2024 FINDINGS: Transabdominal sonographic images of the uterus were obtained. From her established due date she is 36weeks 6days. The following parameters are obtained: Viable Fetus in the cephalic presentation with and anterior placenta grade 2. Average ultrasound age is 34weeks 2days Estimated weight 2,353g, 5 lb 3 oz The cervix measures 5.5 cm. Measurements: heart Rate = 117bpm BPD = 34weeks 2days, 5 percentile HC = 34weeks 6days, <2 percentile AC = 34weeks 4days, 7 percentile FL = 33weeks 2days, <2 percentile HC/AC is 1.02 FL/BPD is 0.76 FL/AC is 0.21 5 percentile Amniotic fluid index: 8.32cm, MVP 3.79 cm. Qualitative AFV:2 Breathing movements: 2 Gross Body Movements: 2 Tone: 2 Biophysical profile score: 8 Doppler evaluation of the umbilical artery: SD ratio: 3.43 Resistive index: 0.71 No obvious anomalies evident.Kidneys, profile, nasion, bladder, stomach, four-chamber heart, three-vessel cord appear normal. There continues to be bilateral renal pelvis dilation. They measure 7.5 mm and 4.2 mm. Dictated by: Praveen Lincoln MD 05/24/2024 07:45 Praveen Lincoln MD in OV 05/24/2024 07:45
== END 2024-05-23 23:59 | disposition home or self-care (01) ==
LOC: RAD 12:42
PROVIDERS: PCP Nurse Practitioner Family; Visit Provider Obstetrics & Gynecology
DX: O36.5990 Maternal care for other known or suspected poor fetal growth, unspecified trimester, not applicable or unspecified (principal); Z3A.36 36 weeks gestation of pregnancy
CPT/HCPCS: 76816; 76819; 76820

== ENCOUNTER 2024-05-24 10:22 | Inpatient (IN) | payer OTHER, SELFPAY ==
--- NOTE | 2024-05-24 10:28 | P.CONPHA_ITS ---
Pharmacy Intervention Comments: MEDICATION RECONCILIATION COMPLETED ON PATIENT USING EXTERNAL FILL HISTORY FROM PHARMACY AND LIST FROM COIN PURSE FRAMER OFFICE. -EMILEE GIROND
--- NOTE | 2024-05-24 10:28 | HMH.PHAINT1 ---
Pharmacy Intervention Comments: MEDICATION RECONCILIATION COMPLETED ON PATIENT USING EXTERNAL FILL HISTORY FROM PHARMACY AND LIST FROM NUCLEAR MEDICINE TECH OFFICE. -EMILEE GIROND
[2024-05-24 10:40] VITALS: BMI 25.9
[2024-05-24 11:00] VITALS: BP 112/72; PULSE 77; RESP 17; TEMP 36.8; O2SAT 98; BMI 25.9
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
[2024-05-24 11:32] LABS: Basophils # 0.1 K/mm3 (0-0.2); Basophils % 0.6 % (0.1-2.0); Eosinophils # 0.1 K/mm3 (0.0-0.4); Eosinophils % 1.4 % (0.1-12.0); Hemoglobin 14.1 g/dL (12.2-16.2); Lymphocytes # 1.3 K/mm3 (0.7-4.5); Lymphocytes % 14.1 % (10-50); Mean Corpuscular HGB Conc 33.6 g/dL (31.8-35.4); Mean Corpuscular Hemoglobin 32.5 pg (27.0-31.2); Mean Corpuscular Volume 96.6 fl (81-99); Mean Platelet Volume 9.1 fl (7.4-10.4); Monocytes # 0.3 K/mm3 (0.1-1.0); Monocytes % 3.5 % (1.7-9.3); Neutrophils # 7.5 K/mm3 (1.8-7.8); Neutrophils % 80.4 % (37.0-80.0); Platelet Count 249 K/mm3 (142-424); Red Blood Count 4.35 M/mm3 (4.20-5.40); Red Cell Distribution Width 13.5 % (11.5-17.5); White Blood Count 9.4 K/mm3 (4.8-10.8)
[2024-05-24 12:33] LABS: Microscopic, Urine URINE MICROSCOPIC (MICROSCOPIC)
[2024-05-24 12:44] LABS: Appearance,Urine CLEAR (Clear); Blood, Urine TRACE-I (Negative); Color,Urine AMBER (Yellow); Glucose,Urine (UA) TRACE (Negative); Ketones,Urine TRACE (Negative); Leukocyte Esterase,Urine TRACE (Negative); Nitrate,Urine Negative (Negative); PH,Urine 6.5 (5.0-8.5); Protein,Urine 1+ (Negative); Specific Gravity, Urine >= 1.030 (1.005-1.030)
[2024-05-24] MEDS: LACTATED RINGERS 1000ML 1,000 ML 250 ML IV (12:54)
[2024-05-24 12:59] LABS: Anion Gap 8.4 mEq/L (5-15); Blood Urea Nitrogen 3 mg/dl (7-17); Calcium 8.6 mg/dl (8.4-10.2); Carbon Dioxide 20 mmol/L (22.0-30.0); Chloride 113 mmol/L (98-107); Creatinine Clearance Estimated 154 mL/min (50-200); Estimated Glomerular Filt Rate 121 ml/min (>60); GFR (African American) 146 ML/MIN (>60); Glucose 72 mg/dl (74-100); Potassium 3.4 mmoL/L (3.5-5.1); Sodium 138 mmol/L (136-145)
[2024-05-24 13:05] LABS: Bacteria,Urine Trace /lpf; Bilirubin,Urine 1+ (Negative); RBC,Urine Occasional #/hpf (0-3); WBC,Urine Occasional #/hpf (0-3)
[2024-05-24 13:23] LABS: Benzodiazepines Screen,Urine Negative ng/ml (<200)
[2024-05-24 13:24] LABS: Amphetamine/Metha Screen,Urine Negative ng/ml (<1000); Barbiturates Screen,Urine Negative ng/ml (<200)
[2024-05-24 13:25] LABS: Cannabinoid Screen,Urine Negative ng/ml (<50)
[2024-05-24 13:26] LABS: Cocaine Screen,Urine Negative ng/ml (<300); Methadone Screen,Urine Negative ng/ml (<300)
[2024-05-24 13:27] LABS: Opiate Screen,Urine Negative ng/ml (<300)
[2024-05-24 13:28] LABS: Phencyclidine Screen,Urine Negative ng/ml (<25)
[2024-05-24] MEDS: CITRIC ACID/SODIUM CITRATE ORAL SOLN 30ML UDC 30 ML PO (15:53)
[2024-05-24] MEDS: GENTAMICIN SULFATE IV (15:54)
[2024-05-24] MEDS: SODIUM CHLORIDE 0.9% IV (15:54)
[2024-05-24] MEDS: CLINDAMYCIN PHOSPHATE/D5W 900 MG/50 ML PIGGYBACK 100 MG IV (16:36)
--- NOTE | 2024-05-24 17:29 | P.OP_ITS ---
Date of procedure: 05/24/24 Pre-op Diagnosis:: 1. 37 weeks 0days gestation, [place] 2. Intrauterine growth restriction with elevated SD ratio 3. Tobacco use in 4. Major depression disorder 5. GBS negative 6. Rh Positive 7. Desires sterilization 8. Bilateral renal pelvis dilation in the fetus 9. Previous delivery, declines trial of labor Post-op Diagnosis:: 1. 37 weeks 0days gestation, [place] 2. Intrauterine growth restriction with elevated SD ratio 3. Tobacco use in 4. Major depression disorder 5. GBS negative 6. Rh Positive 7. Desires sterilization 8. Bilateral renal pelvis dilation in the fetus 9. Previous delivery, declines trial of labor Procedure performed:: Repeat Delivery with bilateral salpingectomy Surgeon:: Desi Acosta DO Planer Mill Grader(s):: Effie Corley DO CHEMICAL LABORATORY ASSISTANT:: Giuliano Pfeiffer Anesthesia: spinal Estimated blood loss (mL): 500 Operative findings:: 1. Live viable female : Delisa. Weight: 4pounds 13ounces. Apgars 7 and 7 at 1 and 5 minutes respectively 2. Normal-appearing fallopian tubes and ovaries bilaterally Operative note:: Medications: 900 mg of IV clindamycin and 5 mg/kg of IV gentamicin Summary: Procedure explained in its entirety. The patient was counseled on the risks and benefits of section including bleeding, vascular injury, infection, and injury to the surrounding structures. Hemorrhage requiring life saving blood transfusion resulting in blood born viral infection or allergic reaction was explained and the patient consented to blood transfusion. Possible need for further operative measures prolonging recovery time and hospitalization reviewed to include hysterectomy. Procedure explained in its entirety and patient had no further questions. Consented to procedure. The patient was taken back to the operating room where adequate spinal anesthesia was obtained. Pneumatic compression stockings applied to lower extremities. Above antibiotics were administered for infection prophylaxis. She was placed in the dorsal supine position Urinary catheter was placed and found to be draining clear urine. The patient was prepped and draped in sterile fashion. Anesthesia was tested and and found to be adequate. A Pfannenstiel skin incision was made with the scalpel over the previous incision. Subcutaneous bleeding vessels were cauterized with the bovie. The incision was taken down to the fascia with the bovie. The fascia was knicked in the midline and sharply extended laterally. The superior aspect of the fascia was grasped with Sal clamps and the rectus muscle was taken down with the Bovie. The rectus muscle was sharply dissected from the midline with Mayos. This process was repeated inferiorly. The rectus muscles were in the midline, peritoneum was identified and entered bluntly. Slava O retractor was placed and the bladder was noted to be out of the operative field. A bladder flap was created with Metzenbaum scissors and [place] pickups. The lower uterine segment was easily identified, sharply incised, and entered bluntly with the surgeon's index finger. Incision was then extended in a superior and inferior fashion by blunt separation. Membranes were ruptured revealing clear fluid. The fetus was in cephalic presentation. The head was carefully elevated out of the pelvis. Fundal pressure was applied when head was brought into incision. The infants head was delivered without difficulty. The shoulder and body followed without complication. Delivery occurred at 1643. The mouth and nose were suctioned with a bulb. The umbilical cord was clamped and cut. was taken to warmer for evaluation by the forging press setter up, Dr. Mcmanus. Cord blood was collected. The placenta was delivered via fundal massage but it was felt to [place] and a velamentous cord insertion was suspected. Placenta retrieved via manual extraction. IV Pitocin was initiated. Inside of the uterus was gently cleared of blood and clots with lap sponge. The hysterotomy was closed with 0 Vicryl in a running locked fashion. The lower uterine segment was visualized and noted to be slightly oozy and a lap sponge was placed for pressure. The ovaries and tubes were found to be normal. The posterior aspect of the uterus was cleared of blood clot with a damp lap sponge. The distal portion of the right fallopian tube was grasped with Kendra clamp and elevated away from surrounding structures. The Enseal device was inserted over mesosalpinx inferior to right distal fallopian tube and used to serially clamp, fulgurate, and transected the fallopian tube in its entirety. Hemostasis noted and the tube was passed off the operative field to be sent to pathology for further evaluation. This process was repeated on the contralateral side. Hemostasis noted. No bleeding was visualized at the fulguration site. Hysterotomy was noted to still be bleeding and 2 [id number]'s were placed. Hemostasis noted. Slava O retractor was removed. Noé powder was applied for an additional layer of prophylaxis. The gutters were inspected bilaterally and cleared of blood and clots with lap sponges. The uterine incision was reinspected and hemostasis noted. The peritoneum was reapproximated using a 2-0 Monocryl in a nonlocked running fashion. The fascia was closed in a running nonlocked fashion using 0 Vicryl x2 meeting right of midline. Fascia was noted as not having gaps or defects. The subcutaneous fat was closed with 2-0 Monocryl interrupted sutures x3. Skin was closed with 4-0 Monocryl suture in a subcuticular fashion. Patient tolerated the procedure well and all counts were correct x3, per nursing. Patient will receive tap blocks and then be transported to the OB PACU for recovery and bonding. Condition: stable Disposition: PACU Complications:: None
[2024-05-24 17:46] VITALS: BP 127/74; PULSE 65; RESP 17; TEMP 36.7; O2SAT 100
[2024-05-24 17:56] VITALS: BP 128/71; PULSE 67; RESP 17; O2SAT 100
[2024-05-24 18:06] VITALS: BP 129/70; PULSE 66; RESP 17; O2SAT 100
[2024-05-24] MEDS: hydrOXYzine pamoate 25MG CAPSULE 50 MG PO (18:13)
[2024-05-24 18:16] VITALS: BP 128/87; PULSE 62; RESP 17; O2SAT 100
[2024-05-24] MEDS: OXYTOCIN/RINGERS LACTATE 30 UNITS/500 ML BAG 40 UNITS IV (18:28)
[2024-05-24] MEDS: LACTATED RINGERS 1000ML 1,000 ML 125 ML IV (18:28)
[2024-05-24] MEDS: ACETAMINOPHEN 500MG TAB 1000 MG PO (18:35)
[2024-05-24] MEDS: KETOROLAC 30MG/ML VIAL 30 MG IV (18:35)
[2024-05-24 19:27] VITALS: BP 110/70; PULSE 69; RESP 16; TEMP 36.9; O2SAT 100
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
[2024-05-25] MEDS: ACETAMINOPHEN 500MG TAB 1000 MG PO ×4 (00:48→18:28)
[2024-05-25] MEDS: KETOROLAC 30MG/ML VIAL 30 MG IV ×3 (00:49→12:55)
[2024-05-25 04:32] VITALS: BP 128/68; PULSE 60; RESP 16; TEMP 36.9
--- NOTE | 2024-05-25 06:53 | P.PNANES_ITS ---
[facility] Anesthesia Record Part I Anesthesia Record I Intake, IV Amount: 1,750 Hydration: Adequate Estimated blood loss (mL): 300 Urine output (mL): 600 Blood Products used (#): none Blood Pressure: 129/77 SaO2: 99 Pulse Rate: 69 Airway Patency: Patent Respiratory Rate: 20 Temperature: 98 F Patient is:: Awake and Stable Stable to PACU at:: 17:46
[2024-05-25 06:57] VITALS: BP 129/77; PULSE 69; RESP 20; TEMP 36.6; O2SAT 99
[2024-05-25 07:52] LABS: Basophils % 0.3 % (0.1-2.0); Eosinophils # 0.1 K/mm3 (0.0-0.4); Eosinophils % 0.5 % (0.1-12.0); Hematocrit 31.7 % (37.0-47.0); Lymphocytes # 1.6 K/mm3 (0.7-4.5); Lymphocytes % 17.9 % (10-50); Mean Corpuscular HGB Conc 34.6 g/dL (31.8-35.4); Mean Corpuscular Hemoglobin 33.6 pg (27.0-31.2); Mean Corpuscular Volume 97.1 fl (81-99); Mean Platelet Volume 9.5 fl (7.4-10.4); Monocytes # 0.2 K/mm3 (0.1-1.0); Monocytes % 2.4 % (1.7-9.3); Neutrophils # 7.1 K/mm3 (1.8-7.8); Neutrophils % 78.8 % (37.0-80.0); Platelet Count 241 K/mm3 (142-424); Red Blood Count 3.26 M/mm3 (4.20-5.40); Red Cell Distribution Width 13.6 % (11.5-17.5)
[2024-05-25 07:53] LABS: Hemoglobin 10.9 g/dL (12.2-16.2)
[2024-05-25 08:39] VITALS: BP 106/70; PULSE 71; RESP 18; TEMP 36.7; O2SAT 99
[2024-05-25] MEDS: BUSPIRONE HCL 10 MG TABLET PO (09:12)
[2024-05-25] MEDS: CITALOPRAM 40MG TABLET 40 MG PO (09:12)
[2024-05-25] MEDS: NICOTINE 21MG/24HR PATCH 21 MG TD (09:12)
--- NOTE | 2024-05-25 12:37 | EXP.DC.SUM ---
General Admission date:: 05/24/24 Discharge date: 05/25/24 HPI HPI HPI: POD # 1 s/p RLTCS with BS Feeling well. She is dressed and sitting at bedside eating lunch. Pain controlled. Pumping and supplemental formual feeding. Lochia is appropriate. Voiding without difficulty and passing flatus. She admits to multiple bowel movements since eating a burger but states she feels better now. Tolerating regular diet. Denies fever/chills, chest pain and shortness of breath. No headaches, vision changes, lightheadedness/dizziness. No lower extremity swelling. Ambulating well ad thomas. She would really like to be discharged today and stay has a guest. She does not want any pain medication prescribed. 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 She states she has ibuprofen and tylenol at home. Hospital Course Hospital Course Hospital Course: Abena Hurst is a 28-year-old at 37 weeks and 0 days gestation who presented to labor and delivery after an office visit for a scheduled delivery. She had an US yesterday which showed the was IUGR with elevated SD dopplers. Her has been followed for IUGR, bilateral hydronephrosis, severe depression, previous delivery and a histroy of gestational thrombocytopenia. On presentation patient endorsed good movement and denies any leakage of fluid or vaginal bleeding. She underwent a repeat with bilateral salpingectomy on 05/25/24. She delivered a live female baby, Delisa, weighing 4 lb 13 oz. Apgars 7 (1 min), 7 (5 min). EBL 500 mL. Exam Data for Last 24 hours Vital signs and Labs for Last 24 Hours: Temp Pulse Resp BP Pulse Ox O2 Del Method 98.1 F 71 18 106/70 L 99 Room Air 05/25/24 08:39 05/25/24 08:39 05/25/24 08:39 05/25/24 08:39 05/25/24 08:39 05/25/24 08:39 Laboratory Results - last 24 hr 05/24/24 10:30: Urine Color Vika, Urine Appearance Clear, Urine pH 6.5, Ur Specific [place] >= 1.030, Urine Protein 1+, Urine Glucose (UA) Trace, Urine Ketones Trace, Urine Blood Trace-i, Urine Nitrate Negative, Urine Bilirubin 1+ A, Urine Urobilinogen 1.0, Ur Leukocyte Esterase Trace, Urine RBC Occasional, Urine WBC Occasional, Ur Squamous Epith Cells 3-5, Urine Bacteria Trace, Urine Opiates Screen Negative, Urine Methadone Screen Negative, Ur Barbituates Screen Negative, Ur Phencyclidine Scrn Negative, Ur Amphetamines Screen Negative, U Benzodiazepines Scrn Negative, Urine Cocaine Screen Negative, U Marijuana (THC) Screen Negative 05/24/24 10:55: Sodium 138, Potassium 3.4 L, Chloride 113 H, Carbon Dioxide 20 L, Anion Gap 8.4, BUN 3 L, Creatinine 0.60, Estimated Creat Clear 154, Estimated GFR 121, Est GFR ( Amer) 146, Glucose 72 L, Calcium 8.6 05/25/24 07:23: WBC 9.0, RBC 3.26 L D, Hgb 10.9 L D, Hct 31.7 L, MCV 97.1, MCH 33.6 H, MCHC 34.6, RDW 13.6, Plt Count 241, MPV 9.5, Neut % (Auto) 78.8, Lymph % (Auto) 17.9, [place] % (Auto) 2.4, Eos % (Auto) 0.5, Baso % (Auto) 0.3, Neut # (Auto) 7.1, Lymph # (Auto) 1.6, [place] # (Auto) 0.2, Eos # (Auto) 0.1, Baso # (Auto) 0.0 I & O for Last 24 hours: Intake & Output 05/22/24 05/23/24 05/24/24 05/25/24 23:59 23:59 23:59 23:59 Intake Total 1750 / 1750 Balance 1750 / 1750 Weight 151 lb Constitutional Constitutional: no acute distress and cooperative *Routine HEENT Exam Head: Present normocephalic and atraumatic Eye: Absent conjunctivae pink ENT: Present mucous membranes moist *Routine Neck Exam Neck: Present full ROM *Routine Respiratory Exam Respiratory: Present CTA bilaterally and normal respiratory effort *Routine Cardiovascular Exam Cardiovascular: Present RRR *Routine Abdominal Exam Abdominal: Present soft and normoactive bowel sounds; Absent tenderness or distended Comments: Uterine fundus firm and below umbilicus, pfannenstiel incision clean/dry/intact *Routine Rectal Exam Patient deferred: visual exam *Routine Exam Patient deferred: external exam *Routine Extremities Exam Extremities: Present full ROM; Absent edema or calf tenderness *Routine Neurological Exam Neurological: Present alert, moving all extremities and normal speech Routine Psychiatric Exam Psychiatric: Present normal affect and cooperative Results Data Completed and Pending Labs on day of discharge: Labs from last 24 hours 05/25/24 05/24/24 05/24/24 07:23 10:55 10:30 WBC 9.0 RBC 3.26 L D Hgb 10.9 L D Hct 31.7 L MCV 97.1 MCH 33.6 H MCHC 34.6 RDW 13.6 Plt Count 241 MPV 9.5 Neut % (Auto) 78.8 Lymph % (Auto) 17.9 [place] % (Auto) 2.4 Eos % (Auto) 0.5 Baso % (Auto) 0.3 Neut # (Auto) 7.1 Lymph # (Auto) 1.6 [place] # (Auto) 0.2 Eos # (Auto) 0.1 Baso # (Auto) 0.0 Sodium 138 Potassium 3.4 L Chloride 113 H Carbon Dioxide 20 L Anion Gap 8.4 BUN 3 L Creatinine 0.60 Estimated Creat Clear 154 Estimated GFR 121 Est GFR ( Amer) 146 Glucose 72 L Calcium 8.6 Urine Color Vika Urine Appearance Clear Urine pH 6.5 Ur Specific [place] >= 1.030 Urine Protein 1+ Urine Glucose (UA) Trace Urine Ketones Trace Urine Blood Trace-i Urine Nitrate Negative Urine Bilirubin 1+ A Urine Urobilinogen 1.0 Ur Leukocyte Esterase Trace Urine RBC Occasional Urine WBC Occasional Ur Squamous Epith Cells 3-5 Urine Bacteria Trace Urine Opiates Screen Negative Urine Methadone Screen Negative Ur Barbituates Screen Negative Ur Phencyclidine Scrn Negative Ur Amphetamines Screen Negative U Benzodiazepines Scrn Negative Urine Cocaine Screen Negative U Marijuana (THC) Screen Negative DS: Diagnosis Discharge Diagnosis (1) S/P repeat low transverse : Status: Acute Code(s): Z98.891 - History of uterine scar from previous surgery Problem details: with bilateral salpingectomy (2) SGA (small for gestational age), , affecting care of mother, antepartum: Status: Acute Code(s): O36.5990 - Maternal care for other known or suspected poor growth, unspecified trimester, not applicable or unspecified (3) Hx of substance abuse: Status: Acute Code(s): F19.11 - Other psychoactive substance abuse, in remission (4) Depression: Status: Acute Code(s): F32.A - Depression, unspecified Qualifiers: Active/Remission status: currently active Depression Type: major depressive disorder Major depression episode severity: moderate Major depression recurrence: recurrent Qualified Code(s): F33.1 - Major depressive disorder, recurrent, moderate (5) Anxiety: Status: Acute Code(s): F41.9 - Anxiety disorder, unspecified (6) Posttraumatic stress disorder: Status: Acute Code(s): F43.10 - Post-traumatic stress disorder, unspecified (7) Chronic GERD: Status: Acute Code(s): K21.9 - Gastro-esophageal reflux disease without esophagitis (8) IUGR (intrauterine growth restriction): Status: Acute (9) 37 weeks gestation of : Status: Acute Code(s): Z3A.37 - 37 weeks gestation of (10) Hydronephrosis determined by ultrasound: Status: Acute Code(s): N13.30 - Unspecified hydronephrosis (11) Encounter for sterilization: Status: Acute Code(s): Z30.2 - Encounter for sterilization (12) Acute postoperative anemia due to expected blood loss: Status: Acute Code(s): D62 - Acute posthemorrhagic anemia Meds Home Medications and Allergies Home Medications Medication Instructions Recorded Confirmed Type vits no.126-ferrous fum 1 tab PO DAILY 10/24/23 05/24/24 History 28 mg iron-folic acid 800 mcg tablet (Classic ) fluticasone propionate 50 2 spray intranasal DAILY #16 grams 04/16/24 05/24/24 Rx mcg/actuation nasal spray,suspension (Flonase Allergy Relief) buspirone 10 mg tablet 10 mg PO BID 05/24/24 05/24/24 History escitalopram oxalate 20 mg tablet 30 mg PO DAILY 05/24/24 05/24/24 History New Prescriptions to Start Prescriptions: Allergies Allergy/AdvReac Type Severity Reaction Status Date / Time azithromycin [From ZITHROMAX] Allergy Mild Verified 05/17/24 09:50 ciprofloxacin [From CIPRO] Allergy Mild Verified 05/17/24 09:50 Penicillins [PENICILLINS] Allergy Unknown Verified 05/17/24 09:50 Discharge Plan Disposition Patient Disposition: Home, Self-Care Condition: Good Discharge Order Discharge Orders: Discharge Order (Routine); Ordered 05/25/24 Ordered By: Jazzy Corley Follow up Plan Follow up with: Desi Acosta DO [Staff Physician] - 2 weeks Prescriptions/Medication Reconciliation: Continued Classic 28 mg iron- 800 mcg tablet 1 tab PO DAILY fluticasone propionate [Flonase Allergy Relief] 50 mcg/actuation spray,suspension 2 spray intranasal DAILY Qty: 16 0RF buspirone 10 mg tablet 10 mg PO BID escitalopram oxalate 20 mg tablet 30 mg PO DAILY Problem Reconciliation Problems Reviewed?: Yes Patient Discharge Instructions ACTIVITY: Limited activity DIET: continue same diet and regular diet Additional Instructions: Discharge: 1. Take 800 mg Ibuprofen every 8 hours as needed for pain. You can also take 500-1000 mg of Tylenol in between doses, every 6-8 hours. 2. Nothing in the vagina for 6 weeks - no intercourse, douching or tampons. No tub baths/hot tubs or swimming pools 3. Reasons to return to L&D or call On-Call doctor - fever (greater than 100.4) - heavy vaginal bleeding (soaking through 1 pad in less than 2 hours) - vaginal discharge (malodorous and/or purulent) - severe headaches not resolved by medication or rest and leg tenderness/edema 4. depression/blues - Normal to feel anxious/overwhelmed for first 2 weeks - Talk to your doctor if: severe anxiety, trouble bonding with baby, withdrawing from other family members, thoughts of harming yourself or others Jazzy Corley DO [facility] [phone] Patient Instructions: Depression, Hemorrhage, DI for , DI for Pre-eclampsia, [facility] Post Discharge Instructions Providers Primary Care Provider: Ambrosio Palencia Admit Provider: Desi Acosta Attending Provider: Desi Acosta
[2024-05-25 16:35] VITALS: BP 119/65; PULSE 79; RESP 17; TEMP 36.8; O2SAT 98
[2024-05-25] MEDS: PRENATAL MULTIVITAMIN W/IRON 1 EACH PO (18:27)
[2024-05-25] MEDS: IBUPROFEN 400 MG TABLET 800 MG PO (18:28)
--- NOTE | 2024-05-27 07:44 | EXP.ANES.II ---
[facility] Anesthesia Record Part II Anesthesia Record Part II Discharge Time: 18:16 Destination: Obstetric PACU nurse assessment reviewed?: Yes Patient Condition:: Good Anesthesia Complications:: None Swallowing reflex intact?: Yes Airway Patency: Patent Cyanosis?: No Blood Pressure: 128/87 SaO2: 100 Respiratory Rate: 17 Pulse Rate: 62 Temperature: 98 F Mental Status: Alert & Oriented Pain level:: 0 Nausea and/or vomitting:: None Intake, IV Amount: 0 Hydration: Adequate
[2024-05-27 07:46] VITALS: BP 128/87; PULSE 62; RESP 17; TEMP 36.6; O2SAT 100
== END 2024-05-25 18:35 | disposition home or self-care (01) | DRG 784 ==
PROVIDERS: Admitting Provider Obstetrics & Gynecology; PCP Nurse Practitioner Family; Visit Provider Obstetrics & Gynecology
PROC: (CPT 59514; principal; 2024-05-24 14:45)
DX: O34.211 Maternal care for low transverse scar from previous cesarean delivery (principal); F33.1 Major depressive disorder, recurrent, moderate; O36.5930 Maternal care for other known or suspected poor fetal growth, third trimester, not applicable or unspecified; Z3A.37 37 weeks gestation of pregnancy; Z37.0 Single live birth; O99.344 Other mental disorders complicating childbirth; F41.9 Anxiety disorder, unspecified; O99.334 Smoking (tobacco) complicating childbirth; F17.210 Nicotine dependence, cigarettes, uncomplicated; Z30.2 Encounter for sterilization; N85.8 Other specified noninflammatory disorders of uterus
CPT/HCPCS: 59514; 58700; 36415; 59025; 76816; 76819; 76820; 80048; 80307; 81001; 85025; 86850; 94761; C9290; G0283; J1100; J1580; J1885; J2405; J3010; J7120

== ENCOUNTER 2024-09-05 06:21 | Observation (INO) | payer OTHER, SELFPAY ==
[2024-09-05] VITALS (8 sets, daily range): BP systolic 90–115; BP diastolic 55–73; PULSE 83–113; RESP 18–20; TEMP 36.6–37.4; O2SAT 97–99; BMI 22.3; BMI 23.1
--- NOTE | 2024-09-05 06:46 | CT_ITS ---
PROCEDURE INFORMATION: Exam: CT Abdomen And Pelvis With Contrast Exam date and time: 09/05/2024 7:40 AM Age: 28 years old Clinical indication: Pain; Other: Flank x 1 week; Additional info: Dysuria, flank pain, severe L CVA tenderness TECHNIQUE: Imaging protocol: Computed tomography of the abdomen and pelvis with contrast. Radiation optimization: All CT scans at this facility use at least one of these dose optimization techniques: automated exposure control; mA and/or kV adjustment per patient size (includes targeted exams where dose is matched to clinical indication); or iterative reconstruction. Contrast material: ISOVUE; Contrast volume: 75 ml; Contrast route: IV; COMPARISON: CT ABDOMEN W CON 10/02/2019 1:39 PM FINDINGS: Liver: Normal. No mass. Gallbladder and biliary ducts: Normal. No calcified stones. No ductal dilation. Pancreas: Normal. No ductal dilation. Spleen: Normal. No splenomegaly. Adrenal glands: Normal. No mass. Kidneys and ureters: Subtle area of decreased perfusion in the inferior pole left kidney. Findings are suggestive of pyelonephritis. Stomach and bowel: Unremarkable. No obstruction. No mucosal thickening. Appendix: No evidence of appendicitis. Intraperitoneal space: Unremarkable. No free air. No significant fluid collection. Vasculature: Unremarkable. No abdominal aortic aneurysm. Lymph nodes: Unremarkable. No enlarged lymph nodes. Urinary bladder: Unremarkable as visualized. Reproductive: Unremarkable as visualized. Bones/joints: Unremarkable. No acute fracture. Soft tissues: Unremarkable. IMPRESSION: Subtle area of decreased perfusion in the inferior pole left kidney suggestive of pyelonephritis.
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
[2024-09-05 06:53] LABS: Microscopic, Urine URINE MICROSCOPIC (MICROSCOPIC)
[2024-09-05 06:55] LABS: Appearance,Urine CLEAR (Clear); Bilirubin,Urine Negative (Negative); Blood, Urine TRACE-I (Negative); Color,Urine YELLOW (Yellow); Glucose,Urine (UA) Negative (Negative); Ketones,Urine Negative (Negative); Leukocyte Esterase,Urine 2+ (Negative); Nitrate,Urine POSITIVE (Negative); PH,Urine 6.5 (5.0-8.5); Protein,Urine Negative (Negative); Urobilinogen,Urine 0.2 EU/dl (0.2)
[2024-09-05 06:59] LABS: Albumin Level 4.2 g/dl (3.5-5.0); Chloride 105 mmol/L (98-107); Potassium 3.7 mmoL/L (3.5-5.1); Sodium 137 mmol/L (136-145)
[2024-09-05 07:02] LABS: Alanine Aminotransferase 31 U/L (12-78); Albumin/Globulin Ratio 1.2 (1.1-1.8); Alkaline Phosphatase 72 U/L (38-126); Anion Gap 8.7 mEq/L (5-15); Aspartate Amino Transferase 29 U/L (14-36); Bilirubin,Total 0.6 mg/dl (0.2-1.3); Blood Urea Nitrogen 7 mg/dl (7-17); Calcium 8.6 mg/dl (8.4-10.2); Carbon Dioxide 27 mmol/L (22.0-30.0); Creatinine Clearance Estimated 99 mL/min (50-200); Estimated Glomerular Filt Rate 87 ml/min (>60); GFR (African American) 105 ML/MIN (>60); Globulin 3.4 g/dL (1.3-3.2); Glucose 115 mg/dl (74-100); Total Protein,Serum 7.6 g/dl (6.3-8.2)
[2024-09-05 07:05] LABS: Basophils # 0.1 K/mm3 (0-0.2); Basophils % 0.5 % (0.1-2.0); Eosinophils # 0.1 K/mm3 (0.0-0.4); Eosinophils % 0.3 % (0.1-12.0); Hematocrit 38.1 % (37.0-47.0); Hemoglobin 13.3 g/dL (12.2-16.2); Lymphocytes # 1.5 K/mm3 (0.7-4.5); Lymphocytes % 7.5 % (10-50); Mean Corpuscular HGB Conc 34.9 g/dL (31.8-35.4); Mean Corpuscular Hemoglobin 32.2 pg (27.0-31.2); Mean Corpuscular Volume 92.3 fl (81-99); Mean Platelet Volume 8.8 fl (7.4-10.4); Monocytes # 1.6 K/mm3 (0.1-1.0); Neutrophils # 16.1 K/mm3 (1.8-7.8); Neutrophils % 83.7 % (37.0-80.0); Platelet Count 258 K/mm3 (142-424); Red Blood Count 4.12 M/mm3 (4.20-5.40); Red Cell Distribution Width 13.4 % (11.5-17.5); White Blood Count 19.3 K/mm3 (4.8-10.8)
[2024-09-05 07:09] LABS: INR 1.18 (0.9-1.1)
[2024-09-05 07:13] LABS: MANUAL DIFFERENTIAL MANUAL DIFFERENTIAL (MANUAL DIFF)
[2024-09-05] MEDS: ONDANSETRON 4MG/2ML VIAL 4 MG IV (07:16)
[2024-09-05] MEDS: MORPHINE 4MG/ML SYRINGE 4 MG IV (07:16)
[2024-09-05] MEDS: LACTATED RINGERS 1000ML 1,000 ML 999 ML IV (07:17)
[2024-09-05 07:22] LABS: HCG Qualitative, Serum Negative (Negative)
[2024-09-05] MEDS: CEFTRIAXONE 1 GM 1 GM in 0.9 % SODIUM CHLORIDE 50 ML IV (07:23)
[2024-09-05] MEDS: ACETAMINOPHEN 325MG TAB 650 MG PO (07:24)
[2024-09-05 07:31] LABS: Bacteria,Urine 2+ /lpf; RBC,Urine Occasional #/hpf (0-3)
[2024-09-05 07:39] LABS: Lactic Acid 0.6 mmol/L (0.7-2.1)
[2024-09-05] MEDS: SODIUM CHLORIDE 0.9% 10ML SYR (RAD ONLY) 10 ML IV (07:51)
[2024-09-05] MEDS: IOPAMIDOL-370 (76%);100ML BOTTLE 75 ML IV (07:51)
[2024-09-05] MEDS: KETOROLAC 30MG/ML VIAL 30 MG IV ×2 (08:08→15:44)
[2024-09-05] MEDS: LACTATED RINGERS 1000ML 1,640 ML 820 ML IV (08:13)
[2024-09-05 08:56] LABS: Lymphocytes % 17 % (10-50); Monocytes % 4 % (2-9); Neutrophils % 79 % (42-76); Total Cells Counted 100
[2024-09-05 08:57] LABS: Platelet Estimate Normal; RBC Morphology Normal
--- NOTE | 2024-09-05 09:42 | PC.NURSE ---
DR KIM SPEAKING WITH DR SHAFER FOR ADMISSION
--- NOTE | 2024-09-05 09:44 | PC.NURSE ---
spoke with house regarding a bed
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
--- NOTE | 2024-09-05 10:04 | PC.NURSE ---
attempted to call report. Nurse will call me back
--- NOTE | 2024-09-05 10:24 | PC.NURSE ---
pt arrived to the floor by wheelchair from ed.
--- NOTE | 2024-09-05 10:37 | HMH.PHAINT1 ---
Pharmacy Intervention Comments: MEDICATION RECONCILIATION COMPLETED ON PATIENT USING EXTERNAL FILL HISTORY FROM PHARMACY. -KEE CHIRINOS, EMILEED
[2024-09-05] MEDS: CEFTRIAXONE SODIUM 1 GM in 0.9 % SODIUM CHLORIDE 50 ML IV (11:09)
[2024-09-05 12:16] LABS: HIV (1&2) Antibody Rapid NONREACTIVE (NONREACTIVE)
--- NOTE | 2024-09-05 17:47 | P.DS_ITS ---
General Admission date:: 09/05/24 Discharge date: 09/05/24 HPI HPI HPI: Ms. Hurst is a 28-year-old female who presented to the ER with complaint of 1 week of flank pain, progressive fever that is worsened over the past 3 days and significant weakness. Just wanting to lay around at home. He is also complaining of dysuria. On presentation to the ER, found to be septic with tachycardia, leukocytosis, and CT of abdomen pelvis showing pyelonephritis. 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 Complains of nausea and vomiting but no diarrhea over the past few days. Was initiated on ceftriaxone. Urine grossly abnormal concerning for UTI. Received fluids and responded well. Medicine consulted for admission and further management After arriving to the floor and taking a brief nap, patient is feeling somewhat better. No kidney injury on labs. Afebrile at this time and hemodynamically stable. Has her in bed with her. Stable on room air. Hospital Course Hospital Course Hospital Course: 28-year-old female who presented with symptoms of sepsis. Workup in the ER concerning for pyelonephritis. Discussed case with ER physician, request admission for continued fluid management and IV antibiotics while awaiting cultures. I agreed to admit for further management. Quite sick on initial presentation. Exam remarkable for significant tenderness and left CVA region. Given patient's history of antibiotic allergies, necessitating monitoring of cultures and sensitivity to guide antibiotic regimen prior to discharge home. Shortly after admission, patient elected that she did not want stay in the hospital any longer. Was feeling better after her first dose of antibiotics and IV fluids along with pain medication. Extensive conversation about risk of further infection, sepsis, permanent dysfunction, or . Patient stated understanding. Elected to proceed with patient directed discharge. Problems addressed as follows: Sepsis Pyelonephritis -Tachycardic to 111, white count of 19, source of infection with pyelonephritis. Per my review of CT, patient has portion of lower pole of left kidney that appears to be infected, grossly abnormal with diffusion difference concerning for pyelonephritis. Urine grossly abnormal with leuk esterase and nitrate positive, 10-20 white cells, 2+ bacteria. Exam with significant CVA tenderness. Tachycardic with leukocytosis of 19. Initiated on ceftriaxone 2 g in the ER. Plan to continue daily however patient elected she did not want stay in the hospital any longer after receiving Toradol. Discharged on Bactrim DS twice daily given patient's antibiotic allergies and severity of illness. Will continue to follow culture. Anxiety/depression: Continue home regimen with Lexapro 30 mg daily and BuSpar 10 mg twice daily. Exam Data for Last 24 hours Vital signs and Labs for Last 24 Hours: Temp Pulse Resp BP Pulse Ox O2 Del Method 98.3 F 97 H 18 107/56 L 99 Room Air 09/05/24 16:00 09/05/24 16:00 09/05/24 16:00 09/05/24 16:00 09/05/24 16:00 09/05/24 16:00 Laboratory Results - last 24 hr 09/05/24 06:30: WBC 19.3 H, RBC 4.12 L, Hgb 13.3, Hct 38.1, MCV 92.3, MCH 32.2 H , MCHC 34.9, RDW 13.4, Plt Count 258, MPV 8.8, Neut % (Auto) 83.7 H, Lymph % (Auto) 7.5 L, [place] % (Auto) 8.0, Eos % (Auto) 0.3, Baso % (Auto) 0.5, Neut # (Auto) 16.1 H, Lymph # (Auto) 1.5, [place] # (Auto) 1.6 H, Eos # (Auto) 0.1, Baso # (Auto) 0.1, Total Counted 100, Neutrophils % (Manual) 79 H, Lymphocytes % (Manual) 17, Monocytes % (Manual) 4, Platelet Estimate Normal, RBC Morphology No rmal, PT 13.0 H, INR 1.18 H, Sodium 137, Potassium 3.7, Chloride 105, Carbon Dioxide 27, Anion Gap 8.7, BUN 7, Creatinine 0.80, Estimated Creat Clear 99, Estimated GFR 87, Est GFR ( Amer) 105, Glucose 115 H, Calcium 8.6, Total Bilirubin 0.6, AST 29, ALT 31, Alkaline Phosphatase 72, Total Protein 7.6, Albumin 4.2, Globulin 3.4 H, Albumin/Globulin Ratio 1.2, Serum HCG, Qual Negative, Urine Color Yellow, Urine Appearance Clear, Urine pH 6.5, Ur Specific [place] 1.010, Urine Protein Negative, Urine Glucose (UA) Negative, Urine Ketones Negative, Urine Blood Trace-i, Urine Nitrate Positive, Urine Bilirubin Negative, Urine Urobilinogen 0.2, Ur Leukocyte Esterase 2+ A, Urine RBC Occasional, Urine WBC 10-20, Ur Squamous Epith Cells 5-10, Urine Bacteria 2+, HIV 1&2 Antibody Rapid Nonreactive 09/05/24 07:20: Lactate 0.6 L I & O for Last 24 hours: Intake & Output 09/02/24 09/03/24 09/04/24 09/05/24 23:59 23:59 23:59 23:59 Intake Total 335 / 335 Output Total 0 / 0 Balance 335 / 335 Weight 60.98 kg Constitutional Constitutional: no acute distress, average body habitus and cooperative *Routine HEENT Exam Head: Present normocephalic and atraumatic Eye: Present EOMI ENT: Present mucous membranes moist *Routine Respiratory Exam Respiratory: Absent rhonchi, wheezes or crackles *Routine Cardiovascular Exam Cardiovascular: Present RRR *Routine Abdominal Exam Abdominal: Present soft and tenderness (Nonfocal, worse in the left abdomen) Routine Back/Spine/Pelvis Exam Back/Spine: Present CVA tenderness (Severe in left back to percussion) *Routine Neurological Exam Neurological: Present alert and oriented X3 Routine Psychiatric Exam Psychiatric: Absent good insight or good judgment Results Data Completed and Pending Labs on day of discharge: Labs from last 24 hours 09/05/24 09/05/24 07:20 06:30 WBC 19.3 H RBC 4.12 L Hgb 13.3 Hct 38.1 MCV 92.3 MCH 32.2 H MCHC 34.9 RDW 13.4 Plt Count 258 MPV 8.8 Neut % (Auto) 83.7 H Lymph % (Auto) 7.5 L [place] % (Auto) 8.0 Eos % (Auto) 0.3 Baso % (Auto) 0.5 Neut # (Auto) 16.1 H Lymph # (Auto) 1.5 [place] # (Auto) 1.6 H Eos # (Auto) 0.1 Baso # (Auto) 0.1 Total Counted 100 Neutrophils % (Manual) 79 H Lymphocytes % (Manual) 17 Monocytes % (Manual) 4 Platelet Estimate Normal RBC Morphology Normal PT 13.0 H INR 1.18 H Sodium 137 Potassium 3.7 Chloride 105 Carbon Dioxide 27 Anion Gap 8.7 BUN 7 Creatinine 0.80 Estimated Creat Clear 99 Estimated GFR 87 Est GFR ( Amer) 105 Glucose 115 H Lactate 0.6 L Calcium 8.6 Total Bilirubin 0.6 AST 29 ALT 31 Alkaline Phosphatase 72 Total Protein 7.6 Albumin 4.2 Globulin 3.4 H Albumin/Globulin Ratio 1.2 Serum HCG, Qual Negative Urine Color Yellow Urine Appearance Clear Urine pH 6.5 Ur Specific [place] 1.010 Urine Protein Negative Urine Glucose (UA) Negative Urine Ketones Negative Urine Blood Trace-i Urine Nitrate Positive Urine Bilirubin Negative Urine Urobilinogen 0.2 Ur Leukocyte Esterase 2+ A Urine RBC Occasional Urine WBC 10-20 Ur Squamous Epith Cells 5-10 Urine Bacteria 2+ HIV 1&2 Antibody Rapid Nonreactive DS: Diagnosis Discharge Diagnosis (1) Sepsis: Status: Acute Code(s): A41.9 - Sepsis, unspecified organism (2) Pyelonephritis: Status: Acute Code(s): N12 - Tubulo-interstitial nephritis, not specified as acute or chronic (3) Anxiety: Status: Acute Code(s): F41.9 - Anxiety disorder, unspecified (4) Depression: Status: Acute Code(s): F32.A - Depression, unspecified Qualifiers: Active/Remission status: currently active Depression Type: major depressive disorder Major depression episode severity: moderate Major depression recurrence: recurrent Qualified Code(s): F33.1 - Major depressive disorder, recurrent, moderate Meds Home Medications and Allergies Home Medications ?Medication ?Instructions ?Recorded ?Confirmed ?Type buspirone 10 mg tablet 10 mg PO BID #60 tabs 08/29/24 09/05/24 Rx escitalopram oxalate 20 mg tablet 30 mg PO DAILY 09/05/24 09/05/24 History ketorolac 10 mg tablet 10 mg PO Q8H PRN pain #10 tabs 09/05/24 Rx sulfamethoxazole 800 1 tab PO BID 7 days #14 tabs 09/05/24 Rx mg-trimethoprim 160 mg tablet (Bactrim DS) New Prescriptions to Start Prescriptions: Giuliano Moore sulfamethoxazole-trimethoprim [Bactrim DS] Giuliano Heaton Allergies Allergy/AdvReac Type Severity Reaction Status Date / Time azithromycin [From ZITHROMAX] Allergy Mild Rash Verified 09/05/24 13:54 ciprofloxacin [From CIPRO] Allergy Mild Rash Verified 09/05/24 13:54 Penicillins [PENICILLINS] Allergy Unknown Hives Verified 09/05/24 13:54 Discharge Plan Disposition Patient Disposition: Left Against Medical Advice Condition: Undetermined Patient Discharge Instructions Print Language: [place] Providers Admit Provider: Giuliano Heaton Attending Provider: Giuliano Heaton
[2024-09-06 05:56] LABS: HCV Ab Non Reactive (Non Reactive)
--- NOTE | 2024-09-09 20:09 | EXP.EVENT.NO ---
Patient's urine culture came back resistant to Bactrim. Attempted to call patient. Able to get a hold of her this evening at 8 PM. Based on her sensitivities/allergies, urine sensitivity. Will transition from Bactrim to Levaquin 750 mg daily for 7 days. States that she was feeling better until yesterday, now having some increased low back pain but denies any fever, nausea, vomiting. Able to ambulate without difficulty. Still feels better than when she came into the hospital previously. Encouraged her to come to the ER if symptoms worsen.
== END 2024-09-05 17:57 | disposition left against medical advice (07) ==
LOC: ER 09:44 → 2ND 09:56
PROVIDERS: Emergency Medicine; Admitting Provider Internal Medicine Adolescent Medicine; Emergency Provider Emergency Medicine; PCP Nurse Practitioner Family; Visit Provider Internal Medicine Adolescent Medicine
DX: A41.9 Sepsis, unspecified organism (principal); N12 Tubulo-interstitial nephritis, not specified as acute or chronic; F41.9 Anxiety disorder, unspecified; F33.1 Major depressive disorder, recurrent, moderate; B96.20 Unspecified Escherichia coli [E. coli] as the cause of diseases classified elsewhere
CPT/HCPCS: 74177; 80053; 81001; 83605; 84703; 85007; 85025; 85027; 85610; 86803; 87040; 87086; 87088; 87186; 87389; 99285; G0378; J0696; J1885; J2270; J2405; J7120; Q9967

== ENCOUNTER 2025-02-07 10:56 | Outpatient (CLI) | payer OTHER, SELFPAY ==
[2025-02-07 12:40] LABS: HIV Combo NEGATIVE (Negative)
[2025-02-07 12:48] LABS: Hepatitis C Ab Qual. W/ RFX NEGATIVE (Negative)
[2025-02-07 16:05] LABS: RPR W/RFX Titers Nonreactive (Nonreactive)
[2025-02-08 07:30] LABS: Hepatitis B Surface Antigen Negative (Negative)
[2025-02-11 07:36] LABS: HSV-1 DNA Negative (Negative); HSV-2 DNA Negative (Negative)
== END 2025-02-07 23:59 | disposition home or self-care (01) ==
LOC: LAB 10:57
PROVIDERS: PCP Nurse Practitioner Family; Visit Provider Obstetrics & Gynecology
DX: Z72.51 High risk heterosexual behavior (principal)
CPT/HCPCS: 36415; 86592; 86803; 87340; 87389; 87529

== ENCOUNTER 2025-04-13 22:01 | Emergency (ER) | payer OTHER, SELFPAY ==
[2025-04-13 22:10] VITALS: BP 128/72; PULSE 112; RESP 18; TEMP 37.9; O2SAT 100; BMI 20.5
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
[2025-04-13] MEDS: ACETAMINOPHEN 500MG TAB 1000 MG PO (22:22)
[2025-04-13 22:24] LABS: Microscopic, Urine URINE MICROSCOPIC (MICROSCOPIC)
[2025-04-13 22:34] LABS: Urine Pregnancy, HCG Qual. Negative (Negative)
[2025-04-13 22:38] LABS: Bilirubin,Urine Negative (Negative); Blood, Urine 3+ (Negative); Color,Urine YELLOW (Yellow); Glucose,Urine (UA) Negative (Negative); Ketones,Urine Negative (Negative); Leukocyte Esterase,Urine 3+ (Negative); Nitrate,Urine POSITIVE (Negative); Protein,Urine Negative (Negative); Urobilinogen,Urine 0.2 EU/dl (0.2)
[2025-04-13 22:39] LABS: Appearance,Urine Slightly Cloudy (Clear)
[2025-04-13 22:47] VITALS: BP 128/72; PULSE 106; RESP 18; TEMP 37.8; O2SAT 99
[2025-04-13] MEDS: CEFDINIR 300MG CAPSULE 300 MG PO (22:47)
[2025-04-13 22:53] LABS: WBC,Urine 50-100 #/hpf (0-3)
[2025-04-13 22:54] LABS: Bacteria,Urine 4+ /lpf
== END 2025-04-13 22:53 | disposition home or self-care (01) ==
PROVIDERS: Emergency Provider Student in an Organized Health Care Education/Training Program
DX: N10 Acute pyelonephritis (principal); R30.0 Dysuria; M54.59 Other low back pain; R39.15 Urgency of urination; B96.20 Unspecified Escherichia coli [E. coli] as the cause of diseases classified elsewhere
CPT/HCPCS: 81001; 81025; 87086; 87088; 87186; 99283